=== PATIENT | male | born 1990 | race African-American/Black ===

== ENCOUNTER 2022-11-13 12:01 | Inpatient (IN) ==
--- NOTE | 2022-11-13 12:19 | Emergency Department Note ---
Impression & Plan Anxiety, Depression, Bipolar disorder ED Provider Note NAME: TERE HAMMONDS AGE: 32 SEX: M : 1990 ARRIVES VIA: Ambulance INFORMANT: Patient ED PROVIDER(S): Juan M Lubin DO CHIEF COMPLAINT: Depression and anxiety HPI: Patient is a 32-year-old male who presents ER for past medical history of depression anxiety and bipolar disorder. He denies any suicidal or homicidal ideations. No auditory visual hallucinations. He notes that he has been more anxious currently. Patient notes that he just lost his job yesterday. He does not have home. He has been eating and drinking. He has been sleeping. He has not been taking any of his medications. PAST MEDICAL HISTORY:See Below PAST SURGICAL HISTORY:See Below FAMILY HISTORY:See Below SOCIAL HISTORY:See Below HOME MEDICATIONS:See Below ALLERGIES:See Below VITALS:See Below PHYSICAL EXAMINATION: GENERAL: Sitting up in bed, alert, well appearing, well nourished, no distress, non-toxic EYE EXAM: normal conjunctiva. PERRL and EOM's grossly intact. OROPHARYNX: mucous membranes are moist NECK: supple, no nuchal rigidity, no adenopathy, non-tender LUNGS: Clear to auscultation. Normal chest wall mechanics HEART: no murmurs, S1 normal and S2 normal ABDOMEN: abdomen soft, non-tender, normo-active bowel sounds, no masses, no rebound or guarding. BACK: Back is symmetrical on inspection and there is no deformity, no midline tenderness, no CVA tenderness. SKIN: no rashes and no bruising UPPER EXTREMITIES: upper extremities are grossly normal. LOWER EXTREMITIES: No pitting edema. NEURO EXAM: Normal sensorium, cranial nerves II-XII grossly intact, normal speech, no gross weakness of arms, no gross weakness of legs. PSYCH: Denies any suicidal or homicidal ideations. Denies any auditory hallucinations. Does admit to feeling very anxious and depressed. MEDICAL DECISION MAKING: Patient is a 32-year-old male who presents ER for above-stated complaint. External records reviewed. Labs show no significant leukocytosis or anemia. BMP along LFTs bilirubin and TSH was unremarkable. UA was clean. Tox was positive for only marijuana. Alcohol negative. COVID-negative. Patient was requesting inpatient treatment. He was evaluated by her psychiatric cna caregiver. Patient did appear to be responding to internal stimuli. He was clearly paranoid and delusional. Referral made to 3 S. and patient was excepted on 201. ED OBSERVATION: The patient was placed in observation status at 1210. Psychiatric evaluation medical stability. During the time in observation, the patient was frequently reassessed and received blood work. On Final reassessment the patient blood work was unremarkable and the patient will be. Accepted at 6:20 PM at this time. A total observation time of 6 hours of observation patient was excepted to 3 S. at 6:20 PM on 201. Triage Nursing notes reviewed. Limited review of prior medical records performed Vital Signs: reviewed and remarkable for HTN Differential diagnosis: Mood disorder, infection, hypoglycemia, electrolyte abnormalities, cardiac sources, intracerebral event, toxicologic, trauma, neurologic, as well as other pathologies. ER treatment provided: See below Diagnostics interpreted by me include EKG and cardiac monitoring as listed below: -ECG: none -Laboratory studies:Interpreted by me as stated above in MDM and shown below. Imaging studies: Xrays: As interpreted by me:none CTs show: none Consultation(s): As described in MDM Procedures:none Critical Care: None Past Med/Surg History Medical History (Updated 11/13/22 @ 18:40 by Juan M Lubin DO) Anxiety Bipolar disorder Depression Surgical History No history of previous surgery Family History Denies family history of Ovarian cancer Prostate cancer Myocardial infarction Breast cancer Colorectal cancer Social History Smoking Status: Current every day smoker Tobacco Type: Cigarettes Hx Alcohol Use: Yes (rarely) Hx Substance Use: No Preferred Language: [place] Visual Impairment: No Limitations Hearing Ability: Normal marital status: single Current Living Situation: Significant Other current occupational status: employed and unemployed Feels Safe at Home: Yes Dental Care, Regularly: Yes Physical Activity Frequency: Daily Seatbelt Use: sometimes Sunscreen Use: No Gender Identity: Male Allergies Allergies Allergy/AdvReac Type Severity Reaction Status Date / Time No Known Allergies Allergy Verified 11/02/22 19:44 Home Meds Home Medications Medication Instructions Recorded Confirmed No Known Home Medications 11/13/22 11/13/22 Results & Data (ED) Vital Signs Vital Signs - 24 hr 11/13/22 12:11 11/13/22 12:11 11/13/22 16:16 Temperature 36.7 C 36.6 C Temperature Source Oral Oral Oral Pulse Rate 84 Pulse Rate [Finger] 70 Respiratory Rate 18 14 Respiratory Effort / Characteristics Non-Labored Respiratory Depth Normal Respiratory Pattern Regular Blood Pressure 142/89 H Blood Pressure [Right Arm] 125/73 Blood Pressure Mean 106 Blood Pressure Mean [Right Arm] 90 Blood Pressure Position Sitting Pulse Oximetry 98 99 Oxygen Delivery Method Room Air Room Air Sepsis Recent Fever Within 48 Hours No Sepsis New/Unexplained Change in Mental Status No Sepsis Action Taken by Nursing No Action Required Laboratory Data 11/13/22 12:55 11/13/22 12:55 Lab Results 11/13/22 11/13/22 11/13/22 Range/Units 12:02 12:55 12:55 WBC 10.62 (4.8-10.8) K/ul RBC 5.63 (4.70-6.10) M/uL Hgb 17.2 (14.0-18.0) g/dl Hct 48.4 (42.0-52.0) % MCV 86.0 (80.0-100.0) fL MCH 30.6 (25.0-34.0) pg MCHC 35.5 (32.0-36.0) g/dL RDW Std Deviation 44.5 (36.4-46.3) fL RDW Coeff of Dalila 14.1 (11.5-14.5) % Plt Count 291 (130-400) K/uL MPV 10.1 (9.4-12.4) fL Immature Gran % (Auto) 0.3 % Neut % (Auto) 69.2 % Lymph % (Auto) 18.9 % [place] % (Auto) 9.0 % Eos % (Auto) 1.9 % Baso % (Auto) 0.7 % Neut # (Auto) 7.35 H (1.40-6.50) K/uL Lymph # (Auto) 2.01 (1.2-3.4) K/uL [place] # (Auto) 0.96 H (0.11-0.59) K/uL Eos # (Auto) 0.20 (0-0.50) K/uL Baso # (Auto) 0.07 (0-0.2) K/uL Immature Gran # (Auto) 0.03 (0.01-0.20) K/uL Sodium 136 (136-145) mmol/L Potassium 3.5 (3.5-5.1) mmol/L Chloride 101 (98-107) mmol/L Carbon Dioxide 28 (21-32) mmol/L Anion Gap 7 (3-11) BUN 11 (6-23) mg/dl Creatinine 0.86 (0.6-1.4) mg/dl Est Cr Clr Drug Dosing Not Reportable Est GFR ( Amer) 134.9 ml/min Est GFR (Non-Af Amer) 116.4 ml/min BUN/Creatinine Ratio 12.8 (10-20) Glucose 104 H (70-99(Fasting)) mg/dl Calcium 9.8 (8.6-10.3) mg/dl Total Bilirubin 0.5 (0.2-1.0) mg/dl AST 30 (13-39) U/L ALT 28 (7-52) U/L Alkaline Phosphatase 76 (34-104) U/L Total Protein 7.9 (6.0-8.3) gm/dl Albumin 5.0 (3.4-5.0) gm/dl Globulin 2.9 (2.5-4.0) gm/dl Albumin/Globulin Ratio 1.7 (0.9-2) TSH (0.300-4.500) uIu/ml Urine Color Urine Appearance (Clear) Urine pH (4.5-7.5) Ur Specific [place] (1.000-1.030) Urine Protein (Negative) Urine Glucose (UA) (Negative) Urine Ketones (Negative) Urine Blood (Negative) Urine Nitrite (Negative) Urine Bilirubin (Negative) Urine Urobilinogen (Negative) Ur Leukocyte Esterase (Negative) Salicylates (3.0-30) mg/dl Urine Opiates Screen (Neg) Ur Methadone, Qual (Neg) Acetaminophen (10-30) ug/ml Urine Barbiturates (Neg) Ur Phencyclidine (PCP) (Neg) U Amphetamin/Meth Scrn (Neg) MDMA (Ecstasy) Screen (Neg) U Benzodiazepines Scrn (Neg) Ur Cocaine Metabolite (Neg) U Marijuana (THC) Screen (Neg) Ethyl Alcohol mg/dL < 10.0 (<10.0) mg/dl SARS-CoV-2, RNA, NAAT (NEGATIVE) 11/13/22 11/13/22 11/13/22 Range/Units 12:55 12:55 12:55 WBC (4.8-10.8) K/ul RBC (4.70-6.10) M/uL Hgb (14.0-18.0) g/dl Hct (42.0-52.0) % MCV (80.0-100.0) fL MCH (25.0-34.0) pg MCHC (32.0-36.0) g/dL RDW Std Deviation (36.4-46.3) fL RDW Coeff of Dalila (11.5-14.5) % Plt Count (130-400) K/uL MPV (9.4-12.4) fL Immature Gran % (Auto) % Neut % (Auto) % Lymph % (Auto) % [place] % (Auto) % Eos % (Auto) % Baso % (Auto) % Neut # (Auto) (1.40-6.50) K/uL Lymph # (Auto) (1.2-3.4) K/uL [place] # (Auto) (0.11-0.59) K/uL Eos # (Auto) (0-0.50) K/uL Baso # (Auto) (0-0.2) K/uL Immature Gran # (Auto) (0.01-0.20) K/uL Sodium (136-145) mmol/L Potassium (3.5-5.1) mmol/L Chloride (98-107) mmol/L Carbon Dioxide (21-32) mmol/L Anion Gap (3-11) BUN (6-23) mg/dl Creatinine (0.6-1.4) mg/dl Est Cr Clr Drug Dosing Est GFR ( Amer) ml/min Est GFR (Non-Af Amer) ml/min BUN/Creatinine Ratio (10-20) Glucose (70-99(Fasting)) mg/dl Calcium (8.6-10.3) mg/dl Total Bilirubin (0.2-1.0) mg/dl AST (13-39) U/L ALT (7-52) U/L Alkaline Phosphatase (34-104) U/L Total Protein (6.0-8.3) gm/dl Albumin (3.4-5.0) gm/dl Globulin (2.5-4.0) gm/dl Albumin/Globulin Ratio (0.9-2) TSH 1.215 (0.300-4.500) uIu/ml Urine Color Yellow Urine Appearance Clear (Clear) Urine pH 6.5 (4.5-7.5) Ur Specific [place] 1.011 (1.000-1.030) Urine Protein Negative (Negative) Urine Glucose (UA) Negative (Negative) Urine Ketones Trace H (Negative) Urine Blood Negative (Negative) Urine Nitrite Negative (Negative) Urine Bilirubin Negative (Negative) Urine Urobilinogen Negative (Negative) Ur Leukocyte Esterase Negative (Negative) Salicylates < 3.0 L (3.0-30) mg/dl Urine Opiates Screen (Neg) Ur Methadone, Qual (Neg) Acetaminophen < 3 L (10-30) ug/ml Urine Barbiturates (Neg) Ur Phencyclidine (PCP) (Neg) U Amphetamin/Meth Scrn (Neg) MDMA (Ecstasy) Screen (Neg) U Benzodiazepines Scrn (Neg) Ur Cocaine Metabolite (Neg) U Marijuana (THC) Screen (Neg) Ethyl Alcohol mg/dL (<10.0) mg/dl SARS-CoV-2, RNA, NAAT (NEGATIVE) 11/13/22 11/13/22 Range/Units 12:55 13:00 WBC (4.8-10.8) K/ul RBC (4.70-6.10) M/uL Hgb (14.0-18.0) g/dl Hct (42.0-52.0) % MCV (80.0-100.0) fL MCH (25.0-34.0) pg MCHC (32.0-36.0) g/dL RDW Std Deviation (36.4-46.3) fL RDW Coeff of Dalila (11.5-14.5) % Plt Count (130-400) K/uL MPV (9.4-12.4) fL Immature Gran % (Auto) % Neut % (Auto) % Lymph % (Auto) % [place] % (Auto) % Eos % (Auto) % Baso % (Auto) % Neut # (Auto) (1.40-6.50) K/uL Lymph # (Auto) (1.2-3.4) K/uL [place] # (Auto) (0.11-0.59) K/uL Eos # (Auto) (0-0.50) K/uL Baso # (Auto) (0-0.2) K/uL Immature Gran # (Auto) (0.01-0.20) K/uL Sodium (136-145) mmol/L Potassium (3.5-5.1) mmol/L Chloride (98-107) mmol/L Carbon Dioxide (21-32) mmol/L Anion Gap (3-11) BUN (6-23) mg/dl Creatinine (0.6-1.4) mg/dl Est Cr Clr Drug Dosing Est GFR ( Amer) ml/min Est GFR (Non-Af Amer) ml/min BUN/Creatinine Ratio (10-20) Glucose (70-99(Fasting)) mg/dl Calcium (8.6-10.3) mg/dl Total Bilirubin (0.2-1.0) mg/dl AST (13-39) U/L ALT (7-52) U/L Alkaline Phosphatase (34-104) U/L Total Protein (6.0-8.3) gm/dl Albumin (3.4-5.0) gm/dl Globulin (2.5-4.0) gm/dl Albumin/Globulin Ratio (0.9-2) TSH (0.300-4.500) uIu/ml Urine Color Urine Appearance (Clear) Urine pH (4.5-7.5) Ur Specific [place] (1.000-1.030) Urine Protein (Negative) Urine Glucose (UA) (Negative) Urine Ketones (Negative) Urine Blood (Negative) Urine Nitrite (Negative) Urine Bilirubin (Negative) Urine Urobilinogen (Negative) Ur Leukocyte Esterase (Negative) Salicylates (3.0-30) mg/dl Urine Opiates Screen Neg (Neg) Ur Methadone, Qual Neg (Neg) Acetaminophen (10-30) ug/ml Urine Barbiturates Neg (Neg) Ur Phencyclidine (PCP) Neg (Neg) U Amphetamin/Meth Scrn Neg (Neg) MDMA (Ecstasy) Screen Neg (Neg) U Benzodiazepines Scrn Neg (Neg) Ur Cocaine Metabolite Neg (Neg) U Marijuana (THC) Screen Pos H (Neg) Ethyl Alcohol mg/dL (<10.0) mg/dl SARS-CoV-2, RNA, NAAT NEGATIVE (NEGATIVE) Discharge Plan Visit Data Chief Complaint: Mental Health Evaluation Stated Complaint: MHID ED Provider: Juan M Lubin Discharge Problem: Anxiety, Depression, Bipolar disorder Patient Disposition: Admitted As Inpatient Discharge Instructions Interventions: ED Discharge Assessment Last Done: 11/13/22 18:13
[2022-11-13 13:07] LABS: Appearance Urine Clear (Clear); Bilirubin Urine Negative (Negative); Blood Urine Negative (Negative); Color Urine Yellow; Glucose Urine UA Negative (Negative); Ketones Urine Trace (Negative); Leukocyte Esterase Urine Negative (Negative); Nitrite Urine Negative (Negative); Protein Urine Negative (Negative); Specific Gravity Urine 1.011 (1.000-1.030); Urobilinogen Urine Negative (Negative); pH Urine 6.5 (4.5-7.5)
[2022-11-13 13:09] LABS: Basophils # (auto) 0.07 K/uL (0-0.2); Basophils % (auto) 0.7 %; Eosinophils % (auto) 1.9 %; Hematocrit (blood only) 48.4 % (42.0-52.0); Hemoglobin 17.2 g/dl (14.0-18.0); Immature Granulocytes # (auto) 0.03 K/uL (0.01-0.20); Immature Granulocytes % (auto) 0.3 %; Lymphocytes # (auto) 2.01 K/uL (1.2-3.4); Lymphocytes % (auto) 18.9 %; Mean Corpuscular Hemoglobin 30.6 pg (25.0-34.0); Mean Corpuscular Hgb Conc 35.5 g/dL (32.0-36.0); Mean Platelet Volume 10.1 fL (9.4-12.4); Monocytes # (auto) 0.96 K/uL (0.11-0.59); Neutrophils # (auto) 7.35 K/uL (1.40-6.50); Neutrophils % (auto) 69.2 %; Platelet Count 291 K/uL (130-400); RDW Coefficient of Variation 14.1 % (11.5-14.5); RDW Standard Deviation 44.5 fL (36.4-46.3); Red Blood Count 5.63 M/uL (4.70-6.10); White Blood Count 10.62 K/ul (4.8-10.8)
[2022-11-13 13:23] LABS: Acetaminophen < 3 ug/ml (10-30); Salicylate < 3.0 mg/dl (3.0-30)
[2022-11-13 13:27] LABS: Anion Gap 7 (3-11); Bilirubin,Total 0.5 mg/dl (0.2-1.0); Calcium 9.8 mg/dl (8.6-10.3); Carbon Dioxide 28 mmol/L (21-32); Chloride 101 mmol/L (98-107); Potassium 3.5 mmol/L (3.5-5.1); Sodium 136 mmol/L (136-145)
[2022-11-13 13:33] LABS: Alanine Aminotransferase 28 U/L (7-52); Albumin Globulin Ratio 1.7 (0.9-2); Alkaline Phosphatase 76 U/L (34-104); Aspartate Aminotransferase 30 U/L (13-39); BUN Creatinine Ratio 12.8 (10-20); Blood Urea Nitrogen 11 mg/dl (6-23); Est GFR (African American) 134.9 ml/min; Est GFR (Non-African American) 116.4 ml/min; Globulin 2.9 gm/dl (2.5-4.0); Glucose 104 mg/dl (70-99(Fasting)); Total Protein 7.9 gm/dl (6.0-8.3)
[2022-11-13 13:59] LABS: Amphetamines+Metham, Urine Neg (Neg); Barbiturates, Urine Neg (Neg); Benzodiazepine, Urine Neg (Neg); Cocaine, Urine Neg (Neg); MDMA (Ecstacy), Urine Neg (Neg); Methadone, Urine Neg (Neg); Opiate, Urine Neg (Neg); Phencyclidine, Urine Neg (Neg)
[2022-11-13] MEDS ORDERED: SODIUM CHLORIDE 0.65% NA SOLN 45 ML (OCEAN) PRN (19:08)
[2022-11-13] MEDS ORDERED: ALUMINUM/MAGNESIUM SUSP 30 ML UDC PO PRN (19:08)
[2022-11-13] MEDS ORDERED: hydrOXYzine HCl 25 MG TAB PO PRN (19:08)
[2022-11-13] MEDS ORDERED: OLANZAPINE 2.5 MG TAB PO PRN (19:08)
[2022-11-13] MEDS ORDERED: BISMUTH SUBSALICYLATE LIQD 236 ML PO PRN (19:08)
[2022-11-13] MEDS ORDERED: MAGNESIUM HYDROXIDE SUSP 30 ML UDC PO PRN (19:08)
[2022-11-13] MEDS: OLANZapine 10 MG TAB PO SCH ×2 (21:26→21:37)
--- NOTE | 2022-11-14 09:48 | History & Physical ---
Date of Service November 14, 2022 Impression / Recommendations Impression 32 year old with a history of BPAD and alcohol use disorder who was admitted for odd behavior and psychosis. Diagnostically consistent with unspecified psychosis with broad differential including acute rachelle (given hx BPAD and decreased sleep) versus primary psychotic disorder versus substance-induced or withdrawal (UDS positive for cannabis, possible effects from synthetic). The patient is deemed unstable and requires psychiatric hospitalization for diagnostic clarification, safety and stabilization, medication management and development of further coping skills. Discussed medication treatment options in detail. Discussed risks, benefits and alternatives. Tere is stating he is only willing to take Vistaril. Discussed that I would be ordering risperidone given that I think it will help with his psychosis and that he can choose to take it or decline it. Reviewed side effects including but not limited to: movement (TD, NMS), cardiac (QTc prolongation), and metabolic (stroke, insulin resistance) and necessity for fasting lipid and glucose labwork (will order if he agrees to start taking it) and AIMS done with score of 0. MNPR due to history of aggression, acute psychosis (1) Psychotic disorder with delusions: (2) Anxiety: Plan 11/14/2022: The patient was admitted to the [facility] ([facility] mental health unit) on q15 min checks (behavioral with suicide precautions) for safety. The patient will participate in group, recreational, and milieu therapies and will be offered additional individual and family sessions as clinically appropriate. -He is refusing olanzapine so will switch to risperidone 1mg BID ODT Inventory Assets Strengths: willing to get treatment, recently working Needs: safety and stabilization, medication adjustment, additional coping skills, increased outpatient services Suicide Risk Level Suicide Risk Level: Moderate (q15 min suicide checks) (he denies SI but given psychosis risk of harm is slightly elevated but he feels safe here, agrees to let nurses know if he feels unsafe or requires additional support) Suicide Risk Level Comments: Risk Factors Assessment Male: Yes : No Do You Have Access To A Gun?: No Health Problems: No Mental Health Diagnoses: Yes Substance Use Disorders: No (none current, hx substance use ) Previous Attempt: No Family History of Suicide: No Previous Psychiatric Hospitalization: Yes Protective Factors Assessment : No Employed: No Stable Relationships: No Good Rapport with Provider: No (no current providers) Psychiatric History Identifying Data TERE HAMMONDS is a 32-year-old M who is currently homeless and has been residing at the [facility], has a history of bipolar affective disorder and alcohol use disorder, and was admitted on 11/13/22 17:38 on a 201 voluntary commitment for odd behavior and psychosis. Chief Complaint "I can't go back there". History of Present Illness Tere self-presented to the ED requesting help for increased anxiety and depression after losing his job on 11/12/2022. While in the ED he was noted to be responding to likely internal stimuli, having odd affect and with paranoia and delusions. Additional recent history and presentation per ED psych CM note on 11/13/2022: " Tere appears to be responding to internal stimuli. He is continuously wringing his hair, shaking his head, repeatedly blowing his nose into his hands, and rubbing his skin. He makes very little eye contact. He stares at wall and corner of room intermittently. He attempted to make comments, but then stopped himself and says Never mind. Tere is cooperative with questioning, but thought process is disorganized. Tere is having difficulty expressing his thoughts. He does now admit to having hallucinations. Tere reports that he has been staying at [facility] for the past month and a half, but has been having increased paranoia about being there. He believes people are throwing scents into his face and he cannot stop smelling it and feeling it on his skin. He fears people at the [facility] are trying to poison him. His paranoia has made it so he does not feel safe staying there. As a result, he has not returned to the [facility] for the past 2 days. He has been having difficulty sleeping. Tere also reports that he lost his job due to paranoia. Tere reports that he is supposed to be on some mental health medication, but has not taken them in a long time (unsure how long, weeks, months, etc). Tere is also unsure what medications are prescribed, but he believes one is Seroquel. Tere reports that he has not taken his medications because he did not want to go to the doctor. Tere was seen in the ER 11/02/22 due to anxiety and paranoia about being poisoned. He requested that his urine be checked at that time. He tested positive for marijuana, which he reports he has his medical card. He was discharged with Vistraril. Tere does admit to use of bath salts in the past, but denies use since being placed on parole 6 months ago. He does report daily tobacco use. Tere reports past mental health history of Bipolar and Anxiety. During brief assessment, Tere reported depression and anxiety, but during full mental health assessment, patient denies depression and anxiety. He continues to deny SI and HI. He denies hallucinations giving him demands. He denies past history of trauma." Last evening initially accepted po zyprexa but then hide this under his tongue and then went to his room and spit it out. Only slept about 2.25 hours. Did eat non packaged food at breakfast but otherwise very suspicious including refusing any nicotine replacement products. History of bath salt use but reports none in last year, only cannabis use currently. States he hasn't used any other substances as he is on parole for a previous parole violation for substance use. Today presents with odd affect, smiling at times and seems internally preoccupied. Guarded and won't give many details except to confirm he's felt anxious, was fired by his job and will not return to [facility]. Reports he only wants to take "anxiety medication". States his sleep is "good" even when we discussed his poor sleep last night. Past Psychiatric History Current Psychiatric Diagnosis: Bipolar, anxiety Outpatient Services: none currently Previous Psych Admissions: August 2019 at [place] for anger with HI, alcohol use December 2018 at the [facility] for rachelle/mixed episode Do You Have Access To A Gun?: No History of Previous Suicide Attempt: No Past Medication Trials: Vistaril, he can't recall Past Head Trauma/Neuro History History of Concussion/Seizure: No Allergies Allergy/AdvReac Type Severity Reaction Status Date / Time No Known Allergies Allergy Verified 11/02/22 19:44 Home Medications Medication Instructions Recorded Confirmed Type No Known Home Medications 11/13/22 11/13/22 History Family History Family History of: Doesn't Know Alcohol History Hx of Alcohol Use Over the Past 12 Months: No AUDIT Total Score: 0 Reports no recent use but history of problematic alcohol use with legal charges related to alcohol use per chart review Smoking Use Have You Smoked or Used Tobacco Products in the Last 30 Days: Yes tobacco type: cigarettes Smoking Status: Current every day smoker Smoking packs per day: 0.5 Substance History Hx of Prescription Med Misuse Over the Past 12 Months: No Hx of Over the Counter Med Misuse Over the Past 12 Months: No Hx of Inhalent Misuse Over the Past 12 Months: No Hx of Organic Substance Use Over the Past 12 Months: Yes (medical marijuana use occassionally) Hx of Illegal Substances/Street Drug Use Over Past 12 Months: No Problems as a Result of Past Substance Use: Job Loss and Arrested history of bath salt use Personal History Living Arrangements: Temporary Half-Way ([facility] for the last 2 months ) Childhood: Parents live in [place]. Raised "[place] over the place". Has three siblings. 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) Marital Status: Single Number Of Children: 3 children age 6,6, and 7 Beliefs That Will Affect Care: None Current Legal Problems: Yes (currently on parole) Hx Legal Problems: Yes (simple assault charges, violation of parole, alcohol use charges) Hx Traumatic Life Events: No Patient History Medical History (Updated 11/14/22 @ 13:44 by Chiara Lion MD) Anxiety Bipolar disorder Depression Surgical History No history of previous surgery Family History Denies family history of Ovarian cancer Prostate cancer Myocardial infarction Breast cancer Colorectal cancer Social History Smoking Status: Current every day smoker Tobacco Type: Cigarettes Hx Alcohol Use: Yes (rarely) Hx Substance Use: No Preferred Language: Sierra Leonean Communication Ability: Effective Visual Impairment: No Limitations Hearing Ability: Normal Desk Monitor Required: No Beliefs That Will Affect Care: None marital status: single Current Living Situation: Significant Other current occupational status: employed and unemployed Feels Safe at Home: Yes Dental Care, Regularly: Yes Physical Activity Frequency: Daily Seatbelt Use: sometimes Sunscreen Use: No Gender Identity: Male Assistive Devices: None Review of Systems Review of Systems: All systems reviewed & are unremarkable except as noted in HPI & below Physical Exam Psychiatric: Orientation: alert, oriented x 3 and + guarded Apperance: appropriately dressed and appropriately groomed Eye Contact: + fair eye contact Motor Behavior: no abnormal motor movements Speech: + abnormal rate/rhythm/volume of speech (increased latency, brief) Affect: + constricted affect; + mood not congruent with affect (smiling and laughing at times inappropriately ) Mood: + anxious mood Thought Process: + thought blocking, + circumstantial thought process (brief) and + concrete thought process Thought Content: + paranoid and + delusions Suicidal Thoughts: denies suicidal thoughts, denies suicidal plan and denies suicidal intent Homicidal Thoughts: denies homicidal thoughts Hallucinations: + auditory hallucinations (appears to be responding to internal stimuli ); no visual hallucinations Cognition: recent memory grossly intact, remote memory grossly intact and language grossly intact; + attention not intact Estimated Intelligence: consistent with education level Insight: + limited insight Judgment: + limited judgement Vital Signs (Past 24 Hours): Last Vital Signs Temp 37.2 C 11/14/22 06:00 Pulse 67 11/14/22 06:00 Resp 18 11/14/22 06:00 BP 112/62 11/14/22 06:41 Pulse Ox 98 11/14/22 06:00 O2 Del Method Room Air 11/14/22 06:00 Exam Statement: A physical exam was performed in the ED by Dr. Lubin for the purposes of medical clearance. I accept that physical as correct and adequate for the purposes of the inpatient physical exam. Results & Data ([facility]) Laboratory Results Laboratory Results - last 24 hr 11/13/22 11/13/22 11/13/22 12:02 12:55 12:55 WBC 10.62 RBC 5.63 Hgb 17.2 Hct 48.4 MCV 86.0 MCH 30.6 MCHC 35.5 RDW Std Deviation 44.5 RDW Coeff of Dalila 14.1 Plt Count 291 MPV 10.1 Immature Gran % (Auto) 0.3 Neut % (Auto) 69.2 Lymph % (Auto) 18.9 [place] % (Auto) 9.0 Eos % (Auto) 1.9 Baso % (Auto) 0.7 Neut # (Auto) 7.35 H Lymph # (Auto) 2.01 [place] # (Auto) 0.96 H Eos # (Auto) 0.20 Baso # (Auto) 0.07 Immature Gran # (Auto) 0.03 Sodium 136 Potassium 3.5 Chloride 101 Carbon Dioxide 28 Anion Gap 7 BUN 11 Creatinine 0.86 Est Cr Clr Drug Dosing Not Reportable Est GFR ( Amer) 134.9 Est GFR (Non-Af Amer) 116.4 BUN/Creatinine Ratio 12.8 Glucose 104 H Calcium 9.8 Total Bilirubin 0.5 AST 30 ALT 28 Alkaline Phosphatase 76 Total Protein 7.9 Albumin 5.0 Globulin 2.9 Albumin/Globulin Ratio 1.7 TSH Urine Color Urine Appearance Urine pH Ur Specific [place] Urine Protein Urine Glucose (UA) Urine Ketones Urine Blood Urine Nitrite Urine Bilirubin Urine Urobilinogen Ur Leukocyte Esterase Salicylates Urine Opiates Screen Ur Methadone, Qual Acetaminophen Urine Barbiturates Ur Phencyclidine (PCP) U Amphetamin/Meth Scrn MDMA (Ecstasy) Screen U Benzodiazepines Scrn Ur Cocaine Metabolite U Marijuana (THC) Screen U Marijuana THC Carboxy Drug Screen Comment Ethyl Alcohol mg/dL < 10.0 SARS-CoV-2, RNA, NAAT 11/13/22 11/13/22 11/13/22 12:55 12:55 12:55 WBC RBC Hgb Hct MCV MCH MCHC RDW Std Deviation RDW Coeff of Dalila Plt Count MPV Immature Gran % (Auto) Neut % (Auto) Lymph % (Auto) [place] % (Auto) Eos % (Auto) Baso % (Auto) Neut # (Auto) Lymph # (Auto) [place] # (Auto) Eos # (Auto) Baso # (Auto) Immature Gran # (Auto) Sodium Potassium Chloride Carbon Dioxide Anion Gap BUN Creatinine Est Cr Clr Drug Dosing Est GFR ( Amer) Est GFR (Non-Af Amer) BUN/Creatinine Ratio Glucose Calcium Total Bilirubin AST ALT Alkaline Phosphatase Total Protein Albumin Globulin Albumin/Globulin Ratio TSH 1.215 Urine Color Yellow Urine Appearance Clear Urine pH 6.5 Ur Specific [place] 1.011 Urine Protein Negative Urine Glucose (UA) Negative Urine Ketones Trace H Urine Blood Negative Urine Nitrite Negative Urine Bilirubin Negative Urine Urobilinogen Negative Ur Leukocyte Esterase Negative Salicylates < 3.0 L Urine Opiates Screen Ur Methadone, Qual Acetaminophen < 3 L Urine Barbiturates Ur Phencyclidine (PCP) U Amphetamin/Meth Scrn MDMA (Ecstasy) Screen U Benzodiazepines Scrn Ur Cocaine Metabolite U Marijuana (THC) Screen U Marijuana THC Carboxy Drug Screen Comment Ethyl Alcohol mg/dL SARS-CoV-2, RNA, NAAT 11/13/22 11/13/22 11/13/22 12:55 12:55 13:00 WBC RBC Hgb Hct MCV MCH MCHC RDW Std Deviation RDW Coeff of Dalila Plt Count MPV Immature Gran % (Auto) Neut % (Auto) Lymph % (Auto) [place] % (Auto) Eos % (Auto) Baso % (Auto) Neut # (Auto) Lymph # (Auto) [place] # (Auto) Eos # (Auto) Baso # (Auto) Immature Gran # (Auto) Sodium Potassium Chloride Carbon Dioxide Anion Gap BUN Creatinine Est Cr Clr Drug Dosing Est GFR ( Amer) Est GFR (Non-Af Amer) BUN/Creatinine Ratio Glucose Calcium Total Bilirubin AST ALT Alkaline Phosphatase Total Protein Albumin Globulin Albumin/Globulin Ratio TSH Urine Color Urine Appearance Urine pH Ur Specific [place] Urine Protein Urine Glucose (UA) Urine Ketones Urine Blood Urine Nitrite Urine Bilirubin Urine Urobilinogen Ur Leukocyte Esterase Salicylates Urine Opiates Screen Neg Ur Methadone, Qual Neg Acetaminophen Urine Barbiturates Neg Ur Phencyclidine (PCP) Neg U Amphetamin/Meth Scrn Neg MDMA (Ecstasy) Screen Neg U Benzodiazepines Scrn Neg Ur Cocaine Metabolite Neg U Marijuana (THC) Screen Pos H U Marijuana THC Carboxy Pending Drug Screen Comment Pending Ethyl Alcohol mg/dL SARS-CoV-2, RNA, NAAT NEGATIVE Current Inpatient Medications Current Inpatient Medications: Current Inpatient Medications Acetaminophen (Acetaminophen 325 Mg Tab) 650 mg PO Q4H PRN PRN Reason: Headache or Minor Fever Stop: 12/13/22 19:07 Al Hydrox/Mg Hydrox/Simethicone (Aluminum/Magnesium Susp 30 Ml Udc) 30 ml PO Q4H PRN PRN Reason: GI Upset Stop: 12/13/22 19:07 Bismuth Subsalicylate (Bismuth Subsalicylate Liqd 236 Ml) 15 ml PO PRN PRN PRN Reason: Loose Stool Stop: 12/13/22 19:07 Hydroxyzine HCl (Hydroxyzine Hcl 25 Mg Tab) 50 mg PO HSZ PRN PRN Reason: Insomnia Stop: 12/13/22 19:07 Hydroxyzine HCl (Hydroxyzine Hcl 25 Mg Tab) 25 mg PO Q4H PRN PRN Reason: Anxiety Stop: 12/13/22 19:07 Magnesium Hydroxide (Magnesium Hydroxide Susp 30 Ml Udc) 30 ml PO DAILY PRN PRN Reason: Constipation Stop: 12/13/22 19:07 Olanzapine (Olanzapine 10 Mg Tab) 10 mg PO HS VANGIE Stop: 12/13/22 21:59 Last Admin: 11/13/22 21:37 Dose: Not Given Olanzapine (Olanzapine 2.5 Mg Tab) 2.5 mg PO TID PRN PRN Reason: agitation/psychosis Stop: 12/13/22 20:59 Sodium Chloride (Sodium Chloride 0.65% Na Soln 45 Ml ([place])) 1 - 2 sprays NA PRN PRN PRN Reason: Nasal Dryness/Congestion Stop: 12/13/22 19:07
[2022-11-14] MEDS ORDERED: risperiDONE ODT 0.5 MG SOLTAB PO PRN (13:37)
[2022-11-14] MEDS: ACETAMINOPHEN 325 MG TAB PO PRN (19:38)
[2022-11-15] MEDS: hydrOXYzine HCl 25 MG TAB PO PRN (08:40)
--- NOTE | 2022-11-15 11:54 | Psychiatric Progress Note ---
Date of Service November 15, 2022 Impression / Recommendations Impression 32 year old with a history of BPAD and alcohol use disorder who was admitted for odd behavior and psychosis. Diagnostically consistent with unspecified psychosis with broad differential including acute rachelle (given hx BPAD and decreased sleep) versus primary psychotic disorder versus substance-induced or withdrawal (UDS positive for cannabis, possible effects from synthetic). The patient is deemed unstable and requires psychiatric hospitalization for diagnostic clarification, safety and stabilization, medication management and development of further coping skills. MNPR due to history of aggression, acute psychosis 11/15/2022: Still with poor sleep but no other symptoms of classic rachelle, rather showing some lessening of paranoia today especially after he finally agreed to a dose of an antipsychotic. Tolerating initial dose of risperidone without side effects, continue to encourage he try this. Somewhat loosened in his decision making and planning for disposition but some of this seems driven by his desire to avoid returning to [facility] and desire to use inpatient hospitalization for a more prolonged stay as he repeatedly asks if an option after his stay here is to be "transferred to another inpatient psychiatry facility that does longer stays" but is also not interested at all in making medication adjustments or learning new coping skills. Enjoys watching TV and bright with activities with peers. (1) Psychotic disorder with delusions: (2) Anxiety: Plan 11/15/2022: Continue with risperidone 1mg BID ODT, continue to encourage adhe rence 11/14/2022: The patient was admitted to the [facility] ([facility] mental health unit) on q15 min checks (behavioral with suicide precautions) for safety. The patient will participate in group, recreational, and milieu therapies and will be offered additional individual and family sessions as clinically appropriate. -He is refusing olanzapine so will switch to risperidone 1mg BID ODT Inventory Assets Strengths: willing to get treatment, recently working Needs: safety and stabilization, medication adjustment, additional coping skills, increased outpatient services Suicide Risk Level Suicide Risk Level: Moderate (q15 min suicide checks) (he denies SI but given psychosis risk of harm is slightly elevated but he feels safe here, agrees to let nurses know if he feels unsafe or requires additional support) Suicide Risk Level Comments: Risk Factors Assessment Male: Yes : No Do You Have Access To A Gun?: No Health Problems: No Mental Health Diagnoses: Yes Substance Use Disorders: No (none current, hx substance use ) Previous Attempt: No Family History of Suicide: No Previous Psychiatric Hospitalization: Yes Protective Factors Assessment : No Employed: No Stable Relationships: No Good Rapport with Provider: No (no current providers) Interval History Identifying Information TERE HAMMONDS is a 32-year-old M who is currently homeless and has been residing at the [facility], has a history of bipolar affective disorder and alcohol use disorder, and was admitted on 11/13/22 17:38 on a 201 voluntary commitment for odd behavior and psychosis. Chief Complaint "I don't know what to tell you". Review of Systems Sleep Information Total Hours of Sleep: 3.25 Meal Information Percent Meal Consumed - Breakfast: 100 Percent Meal Consumed - Lunch: 100 Percent Meal Consumed - Dinner: 100 Subjective Subjective Patient was seen & assessed and interval progress reviewed with treatment team nursing and social work. Refused risperidone last night but accepted ODT dose this morning. Met with him alongside SW in the afternoon. He remains unsure what he should do after discharge as he doesn't want to return to [facility] as "they mess with people with psychosis and start pulling little tricks" but also recognizes he needs to have a formal address as part of his parole requirements. He is unsure about the risperidone but agrees to continue this for now. Makes some vague statements about his goals for inpatient psychiatric hospitalization of "fixing my meds" but when try to discuss his medications and options he is unwilling to consider any medications except possibly continuing with risp eridone. He is agreeable to SW making some outpatient referrals and confirming his [facility] appointment. Observed interacting appropriately with peers and smiling and laughing appropriately while engaging in a game. Still with poor sleep which he doesn't see as problematic. Physical Exam Psychiatric Orientation: alert, oriented x 3 and + guarded Apperance: appropriately dressed and appropriately groomed Eye Contact: + fair eye contact Motor Behavior: no abnormal motor movements Speech: + abnormal rate/rhythm/volume of speech (increased latency) Affect: + constricted affect; + mood not congruent with affect (smiling at times inappropriately but less of this today) Mood: + anxious mood Thought Process: + circumstantial thought process Thought Content: reality based without delusions Suicidal Thoughts: denies suicidal thoughts, denies suicidal plan and denies suicidal intent Homicidal Thoughts: denies homicidal thoughts Hallucinations: + auditory hallucinations (unclear if responding today); no visual hallucinations, no tactile hallucinations and no gustatory hallucinations Cognition: recent memory grossly intact, remote memory grossly intact, attention grossly intact and language grossly intact Estimated Intelligence: consistent with education level Insight: + limited insight Judgment: + limited judgement Vital Signs (Past 24 Hours) Last Vital Signs Temp 37 C 11/15/22 06:42 Pulse 73 11/15/22 06:43 Resp 18 11/15/22 06:42 BP 128/69 11/15/22 06:43 Pulse Ox 98 11/14/22 06:00 O2 Del Method Room Air 11/14/22 06:00 Results & Data ([facility]) Current Inpatient Medications Current Inpatient Medications: Current Inpatient Medications Acetaminophen (Acetaminophen 325 Mg Tab) 650 mg PO Q4H PRN PRN Reason: Headache or Minor Fever Stop: 12/13/22 19:07 Last Admin: 11/14/22 19:38 Dose: 650 mg Al Hydrox/Mg Hydrox/Simethicone (Aluminum/Magnesium Susp 30 Ml Udc) 30 ml PO Q4H PRN PRN Reason: GI Upset Stop: 12/13/22 19:07 Bismuth Subsalicylate (Bismuth Subsalicylate Liqd 236 Ml) 15 ml PO PRN PRN PRN Reason: Loose Stool Stop: 12/13/22 19:07 Hydroxyzine HCl (Hydroxyzine Hcl 25 Mg Tab) 50 mg PO HSZ PRN PRN Reason: Insomnia Stop: 12/13/22 19:07 Hydroxyzine HCl (Hydroxyzine Hcl 25 Mg Tab) 25 mg PO Q4H PRN PRN Reason: Anxiety Stop: 12/13/22 19:07 Last Admin: 11/15/22 08:40 Dose: 25 mg Magnesium Hydroxide (Magnesium Hydroxide Susp 30 Ml Udc) 30 ml PO DAILY PRN PRN Reason: Constipation Stop: 12/13/22 19:07 Risperidone (Risperidone Odt 0.5 Mg Soltab) 0.5 mg PO TID PRN PRN Reason: agitation/psychosis/rachelle Stop: 12/14/22 13:36 Risperidone (Risperidone Odt 1mg) 1 mg PO BID VANGIE Stop: 12/14/22 20:59 Last Admin: 11/15/22 10:47 Dose: 1 mg Sodium Chloride (Sodium Chloride 0.65% Na Soln 45 Ml ([place])) 1 - 2 sprays NA PRN PRN PRN Reason: Nasal Dryness/Congestion Stop: 12/13/22 19:07 Mental Health & Subst Abuse Tx Therapist Name of Therapist: Denies Management Nurse Rn Name of Management Nurse Rn: Denies Post Discharge Appointments Primary Care Physician Name Of Family Doctor/PCP: Denies Contact Information Discharge Discharge Address: [address] [place] [address]
[2022-11-16] MEDS: hydrOXYzine HCl 25 MG TAB PO PRN ×2 (08:09→14:43)
[2022-11-16] MEDS: ACETAMINOPHEN 325 MG TAB PO PRN (08:10)
--- NOTE | 2022-11-16 10:13 | Psychiatric Progress Note ---
Date of Service November 16, 2022 Impression / Recommendations Impression 32 year old with a history of BPAD and alcohol use disorder who was admitted for odd behavior and psychosis. Diagnostically consistent with unspecified psychosis with broad differential including acute rachelle (given hx BPAD and decreased sleep) versus primary psychotic disorder versus substance-induced or withdrawal (UDS positive for cannabis, possible effects from synthetic). The patient is deemed unstable and requires psychiatric hospitalization for diagnostic clarification, safety and stabilization, medication management and development of further coping skills. MNPR due to history of aggression, acute psychosis 11/16/2022: Still with poor sleep but no other symptoms of classic rachelle, seems more likely that he may be withdrawing from some type of substance especially given that psychosis is improving quickly which would not be expected for a primary psychotic disorder after just a few doses of risperidone. Encouragingly no longer speaking about any internal stimuli, does have evidence for possible thought blocking versus poor attention span as asks me to repeat most questions. Quite guarded vs not interested in interacting with interview overall but answered all questions and feels his anxiety is improving which is his main focus. (1) Psychotic disorder with delusions: (2) Anxiety: Plan 11/16/2022: Continue with current medications and tx plan. 11/15/2022: Continue with risperidone 1mg BID ODT, continue to encourage adherence 11/14/2022: The patient was admitted to the [facility] ([facility]) on q15 min checks (behavioral with suicide precautions) for safety. The patient will participate in group, recreational, and milieu therapies and will be offered additional individual and family sessions as clinically appropriate. -He is refusing olanzapine so will switch to risperidone 1mg BID ODT Inventory Assets Strengths: willing to get treatment, recently working Needs: safety and stabilization, medication adjustment, additional coping skills, increased outpatient services Suicide Risk Level Suicide Risk Level: Moderate (q15 min suicide checks) (he denies SI but given psychosis risk of harm is slightly elevated but he feels safe here, agrees to let nurses know if he feels unsafe or requires additional support) Suicide Risk Level Comments: Risk Factors Assessment Male: Yes : No Do You Have Access To A Gun?: No Health Problems: No Mental Health Diagnoses: Yes Substance Use Disorders: No (none current, hx substance use ) Previous Attempt: No Family History of Suicide: No Previous Psychiatric Hospitalization: Yes Protective Factors Assessment : No Employed: No Stable Relationships: No Good Rapport with Provider: No (no current providers) Interval History Identifying Information TERE HAMMONDS is a 32-year-old M who is currently homeless and has been residing at the [facility] home, has a history of bipolar affective disorder and alcohol use disorder, and was admitted on 11/13/22 17:38 on a 201 voluntary commitment for odd behavior and psychosis. Chief Complaint "Talk about what?". Review of Systems Sleep Information Total Hours of Sleep: 4 Sleep Comments: 4 Meal Information Percent Meal Consumed - Breakfast: 100 Percent Meal Consumed - Lunch: 100 Percent Meal Consumed - Dinner: 100 Subjective Subjective Patient was seen & assessed and interval progress reviewed with treatment team nursing and social work. He attended groups last night, showered and interacted with peers. He was adherent with his evening and morning dose of risperidone. Utilizes Vistaril prn with good effect for anxiety. Denies any risperidone side effects. Feels his mood is "alright". Still not sleeping much but he feels he is sleeping well. Physical Exam Psychiatric Orientation: alert, oriented x 3 and + guarded Apperance: appropriately dressed and appropriately groomed Eye Contact: + fair eye contact Motor Behavior: no abnormal motor movements Speech: normal rate/rhythm/volume of speech Affect: + constricted affect; + mood not congruent with affect (appears suspicious at times) Mood: + anxious mood Thought Process: + thought blocking and + circumstantial thought process Thought Content: reality based without delusions Suicidal Thoughts: denies suicidal thoughts, denies suicidal plan and denies suicidal intent Homicidal Thoughts: denies homicidal thoughts Hallucinations: no auditory hallucinations, no visual hallucinations, no tactile hallucinations and no gustatory hallucinations Cognition: recent memory grossly intact, remote memory grossly intact and language grossly intact; + attention not intact (often asks me to repeat question twice) Estimated Intelligence: consistent with education level Insight: + limited insight Judgment: + limited judgement Vital Signs (Past 24 Hours) Last Vital Signs Temp 36.8 C 11/16/22 06:49 Pulse 62 11/16/22 06:50 Resp 18 11/16/22 06:49 BP 116/71 11/16/22 06:50 Pulse Ox 98 11/14/22 06:00 O2 Del Method Room Air 11/14/22 06:00 Results & Data ([facility]) Current Inpatient Medications Current Inpatient Medications: Current Inpatient Medications Acetaminophen (Acetaminophen 325 Mg Tab) 650 mg PO Q4H PRN PRN Reason: Headache or Minor Fever Stop: 12/13/22 19:07 Last Admin: 11/16/22 08:10 Dose: 650 mg Al Hydrox/Mg Hydrox/Simethicone (Aluminum/Magnesium Susp 30 Ml Udc) 30 ml PO Q4H PRN PRN Reason: GI Upset Stop: 12/13/22 19:07 Bismuth Subsalicylate (Bismuth Subsalicylate Liqd 236 Ml) 15 ml PO PRN PRN PRN Reason: Loose Stool Stop: 12/13/22 19:07 Hydroxyzine HCl (Hydroxyzine Hcl 25 Mg Tab) 50 mg PO HSZ PRN PRN Reason: Insomnia Stop: 12/13/22 19:07 Hydroxyzine HCl (Hydroxyzine Hcl 25 Mg Tab) 25 mg PO Q4H PRN PRN Reason: Anxiety Stop: 12/13/22 19:07 Last Admin: 11/16/22 08:09 Dose: 25 mg Magnesium Hydroxide (Magnesium Hydroxide Susp 30 Ml Udc) 30 ml PO DAILY PRN PRN Reason: Constipation Stop: 12/13/22 19:07 Risperidone (Risperidone Odt 0.5 Mg Soltab) 0.5 mg PO TID PRN PRN Reason: agitation/psychosis/rachelle Stop: 12/14/22 13:36 Risperidone (Risperidone Odt 1mg) 1 mg PO BID VANGIE Stop: 12/14/22 20:59 Last Admin: 11/16/22 08:06 Dose: 1 mg Sodium Chloride (Sodium Chloride 0.65% Na Soln 45 Ml (Reeves)) 1 - 2 sprays NA PRN PRN PRN Reason: Nasal Dryness/Congestion Stop: 12/13/22 19:07 Mental Health & Subst Abuse Tx Psychiatrist [facility] Psychiatrist: [facility] - Intake Psychiatrist's Date Of Appointment With Psychiatric Provider: 11/18/22 Time of Appointment with Psychiatrist: 12:30 PM in office Psychiatric Appointment Comment: [address], [place] [address] Therapist Name of Therapist: [facility] - Intake Therapist's Date of Therapist Appointment: 11/18/22 Time of Therapist Appointment: 12:30 PM in office Therapy Appointment Comment: [address], [place] [address] Joinery Setter Out Name of Joinery Setter Out: [employer] Phone Number for Joinery Setter Out: [phone] Case Management Appointment Comment: A mattress spring encaser will follow up with you directly. Post Discharge Appointments Primary Care Physician Name Of Family Doctor/PCP: [facility] Time of Appointment with PCP: [address], [place] [address] Provider Appointment Comment: Please follow up with your family doctor as needed. Contact Information Discharge Discharge Address: [address] [place] [address],[place] [address]
[2022-11-17 07:52] LABS: Chol HDL Ratio 3.9 (0-5)
[2022-11-17] MEDS: hydrOXYzine HCl 25 MG TAB PO PRN (08:30)
--- NOTE | 2022-11-17 09:33 | Discharge Summary ---
Date of Service November 17, 2022 History of Present Illness Darek self-presented to the ED requesting help for increased anxiety and depression after losing his job on 11/12/2022. While in the ED he was noted to be responding to likely internal stimuli, having odd affect and with paranoia and delusions. Additional recent history and presentation per ED psych CM note on 11/13/2022: " Darek appears to be responding to internal stimuli. He is continuously wringing his hair, shaking his head, repeatedly blowing his nose into his hands, and rubbing his skin. He makes very little eye contact. He stares at wall and corner of room intermittently. He attempted to make comments, but then stopped himself and says Never mind. Darek is cooperative with questioning, but thought process is disorganized. Darek is having difficulty expressing his thoughts. He does now admit to having hallucinations. Darek reports that he has been staying at [facility] for the past month and a half, but has been having increased paranoia about being there. He believes people are throwing scents into his face and he cannot stop smelling it and feeling it on his skin. He fears people at the nursing home are trying to poison him. His paranoia has made it so he does not feel safe staying there. As a result, he has not returned to the nursing home for the past 2 days. He has been having difficulty sleeping. Darek also reports that he lost his job due to paranoia. Darek reports that he is supposed to be on some mental health medication, but has not taken them in a long time (unsure how long, weeks, months, etc). Darek is also unsure what medications are prescribed, but he believes one is Seroquel. Darek reports that he has not taken his medications because he did not want to go to the doctor. Darek was seen in the ER 11/02/22 due to anxiety and paranoia about being poisoned. He requested that his urine be checked at that time. He tested positive for marijuana, which he reports he has his medical card. He was discharged with Vistraril. Darek does admit to use of bath salts in the past, but denies use since being placed on parole 6 months ago. He does report daily tobacco use. Darek reports past mental health history of Bipolar and Anxiety. During brief assessment, Darek reported depression and anxiety, but during full mental health assessment, patient denies depression and anxiety. He continues to deny SI and HI. He denies hallucinations giving him demands. He denies past history of trauma." Last evening initially accepted po zyprexa but then hide this under his tongue and then went to his room and spit it out. Only slept about 2.25 hours. Did eat non packaged food at breakfast but otherwise very suspicious including refusing any nicotine replacement products. History of bath salt use but reports none in last year, only cannabis use currently. States he hasn't used any other substances as he is on parole for a previous parole violation for substance use. Today presents with odd affect, smiling at times and seems internally preoccupied. Guarded and won't give many details except to confirm he's felt anxious, was fired by his job and will not return to [facility]. Reports he only wants to take "anxiety medication". States his sleep is "good" even when we discussed his poor sleep last night. Physical Exam Vital Signs (Past 24 Hours) Last Vital Signs Temp 36.5 C 11/17/22 06:37 Pulse 55 L 11/17/22 06:38 Resp 18 11/17/22 06:37 BP 125/79 11/17/22 06:38 Pulse Ox 98 11/14/22 06:00 O2 Del Method Room Air 11/14/22 06:00 See admission H&P and DOD summary. Principal Diagnosis Unspecified psychosis Psychiatric Data See daily stay summary. In short, patient was engaged with the social/therapeutic milieu of the unit, safety was maintained and the patient was somewhat cooperative with care. At times he had some oppositional behaviors with staff and initially was reluctant to try any medication but then agreed to start an antipsychotic for mood stabilization given reported history of BPAD and for unspecified psychosis. Medication changes included initiation of risperidone 1mg BID and Vistaril 25mg TID prn for anxiety and they tolerated this well. Baseline labs of fasting glucose, lipid profile, and weight were preformed and normal with the exception of just slightly elevated triglycerides but lab draw was not fasting (he accidentally drank milk that morning) so slightly elevated results are to be expected. If he continues on risperidone then recommend repeat weight in one month. Recommend repeat fasting glucose, HbA1c and fasting lipid profile every 12 weeks and then annually. If symptoms arise recommend checking BP, EKG, prolactin level as clinically indicated or relevant. His psychosis improved quickly suggesting possibly substance-induced versus brief psychotic episode. He did not sleep very well but did not show any signs of acute rachelle throughout his stay. He interacted well in groups, attended to personal hygiene, ate well and was bright in interactions with peers and while watching TV. He declined a support session but did participate in an intake for outpatient case management and safety plan was completed prior to discharge. Motivational interviewing was done regarding substance use, he plans to continue using cannabis as he has a medical cannabis card. Reviewed importance of seeking emergency care should SI occur, worsen or should they feel unsafe in the future which they agree to do. On the day of discharge he stated his mood was "alright and ready to go" and remained future-oriented including smoking cigarettes, getting back to [facility] and engaging in aftercare appointments for psychiatry, therapy and case management. Day of Discharge Assessment Today the patient voices readiness for discharge. They note improvement in mood and anxiety. They deny thoughts of harm to self or others. Thoughts are organized and they are clinically improved from admission. There is no evidence of psychosis. They improved in the hospital with support and medication adjustments. They agree to take medications as prescribed and keep follow-up appointments. At the time of the discharge they are deemed to be stable and appropriate for outpatient level of care. They are not deemed to be at imminent risk of harm to self or others. They are aware of emergency and crisis services. Knows to call 911 or go to nearest emergency care center if in a crisis which cannot be handled as an outpatient. Transition of Care Transition Of Care Record: was reviewed with the patient Advance Directives Advance Directives Information Provided: Yes Advance Directives: No Mental Health Advance Directive: No Advance Directives on File: No Living Will: No Power of Brand Advisor: No Advance Directives Reason:: Declines as Mental Health Visit. Suicide Risk Level Suicide Risk Level Comments: Acute risk is low given improvement in mood and denial of SI, lack of access to lethal means, hopefulness and improvement in psychosis. Chronic risk is low to moderate given some non-modifiable risk factors: psychiatric co-morbid diagnoses , periods of impulsivity, prior psychiatric hospitalizations, poor social support, mood disorder, history of suspected cluster B traits, but also with protective factors including: sense of responsibility to family and social supports, outpatient care in place, positive coping skills, capacity for self- observation. Counseled on ways to reduce acute and chronic risk including engaging with outpatient providers, using safety plan if needed, utilizing supports, taking medication, and using coping skills. Modifiable risk factors of psychosis were addressed during hospitalization through development of new coping skills, safety planning, and medication adjustments. Risk Factors Assessment Male: Yes : No Do You Have Access To A Gun?: No Health Problems: No Mental Health Diagnoses: Yes Substance Use Disorders: No (none current, hx substance use ) Previous Attempt: No Family History of Suicide: No Previous Psychiatric Hospitalization: Yes Hopelessness: No Protective Factors Assessment : No Employed: No Stable Relationships: No Good Rapport with Provider: No (no current providers, now will have CM and set up with [facility]) Tobacco Cessation at Discharge Tobacco Cessation Medication Prescribed at Discharge: Offered & Pt Refused Discharge Data Lab Results 11/13/22 11/13/22 11/13/22 12:02 12:55 12:55 WBC 10.62 RBC 5.63 Hgb 17.2 Hct 48.4 MCV 86.0 MCH 30.6 MCHC 35.5 RDW Std Deviation 44.5 RDW Coeff of Dalila 14.1 Plt Count 291 MPV 10.1 Immature Gran % (Auto) 0.3 Neut % (Auto) 69.2 Lymph % (Auto) 18.9 Conway % (Auto) 9.0 Eos % (Auto) 1.9 Baso % (Auto) 0.7 Neut # (Auto) 7.35 H Lymph # (Auto) 2.01 Conway # (Auto) 0.96 H Eos # (Auto) 0.20 Baso # (Auto) 0.07 Immature Gran # (Auto) 0.03 Sodium 136 Potassium 3.5 Chloride 101 Carbon Dioxide 28 Anion Gap 7 BUN 11 Creatinine 0.86 Est Cr Clr Drug Dosing Not Reportable Est GFR ( Amer) 134.9 Est GFR (Non-Af Amer) 116.4 BUN/Creatinine Ratio 12.8 Glucose 104 H Fasting Glucose Calcium 9.8 Total Bilirubin 0.5 AST 30 ALT 28 Alkaline Phosphatase 76 Total Protein 7.9 Albumin 5.0 Globulin 2.9 Albumin/Globulin Ratio 1.7 Triglycerides Cholesterol LDL Cholesterol, Calc VLDL Cholesterol, Calc HDL Cholesterol Cholesterol/HDL Ratio TSH Urine Color Urine Appearance Urine pH Ur Specific Exeter Urine Protein Urine Glucose (UA) Urine Ketones Urine Blood Urine Nitrite Urine Bilirubin Urine Urobilinogen Ur Leukocyte Esterase Salicylates Urine Opiates Screen Ur Methadone, Qual Acetaminophen Urine Barbiturates Ur Phencyclidine (PCP) U Amphetamin/Meth Scrn MDMA (Ecstasy) Screen U Benzodiazepines Scrn Ur Cocaine Metabolite U Marijuana (THC) Screen Ethyl Alcohol mg/dL < 10.0 SARS-CoV-2, RNA, NAAT 11/13/22 11/13/22 11/13/22 12:55 12:55 12:55 WBC RBC Hgb Hct MCV MCH MCHC RDW Std Deviation RDW Coeff of Dalila Plt Count MPV Immature Gran % (Auto) Neut % (Auto) Lymph % (Auto) Conway % (Auto) Eos % (Auto) Baso % (Auto) Neut # (Auto) Lymph # (Auto) Conway # (Auto) Eos # (Auto) Baso # (Auto) Immature Gran # (Auto) Sodium Potassium Chloride Carbon Dioxide Anion Gap BUN Creatinine Est Cr Clr Drug Dosing Est GFR ( Amer) Est GFR (Non-Af Amer) BUN/Creatinine Ratio Glucose Fasting Glucose Calcium Total Bilirubin AST ALT Alkaline Phosphatase Total Protein Albumin Globulin Albumin/Globulin Ratio Triglycerides Cholesterol LDL Cholesterol, Calc VLDL Cholesterol, Calc HDL Cholesterol Cholesterol/HDL Ratio TSH 1.215 Urine Color Yellow Urine Appearance Clear Urine pH 6.5 Ur Specific Exeter 1.011 Urine Protein Negative Urine Glucose (UA) Negative Urine Ketones Trace H Urine Blood Negative Urine Nitrite Negative Urine Bilirubin Negative Urine Urobilinogen Negative Ur Leukocyte Esterase Negative Salicylates < 3.0 L Urine Opiates Screen Ur Methadone, Qual Acetaminophen < 3 L Urine Barbiturates Ur Phencyclidine (PCP) U Amphetamin/Meth Scrn MDMA (Ecstasy) Screen U Benzodiazepines Scrn Ur Cocaine Metabolite U Marijuana (THC) Screen Ethyl Alcohol mg/dL SARS-CoV-2, RNA, NAAT 11/13/22 11/13/22 11/17/22 12:55 13:00 06:59 WBC RBC Hgb Hct MCV MCH MCHC RDW Std Deviation RDW Coeff of Dalila Plt Count MPV Immature Gran % (Auto) Neut % (Auto) Lymph % (Auto) Conway % (Auto) Eos % (Auto) Baso % (Auto) Neut # (Auto) Lymph # (Auto) Conway # (Auto) Eos # (Auto) Baso # (Auto) Immature Gran # (Auto) Sodium Potassium Chloride Carbon Dioxide Anion Gap BUN Creatinine Est Cr Clr Drug Dosing Est GFR ( Amer) Est GFR (Non-Af Amer) BUN/Creatinine Ratio Glucose Fasting Glucose 90 Calcium Total Bilirubin AST ALT Alkaline Phosphatase Total Protein Albumin Globulin Albumin/Globulin Ratio Triglycerides 157 H Cholesterol 147 LDL Cholesterol, Calc 78 VLDL Cholesterol, Calc 31 H HDL Cholesterol 38 Cholesterol/HDL Ratio 3.9 TSH Urine Color Urine Appearance Urine pH Ur Specific Exeter Urine Protein Urine Glucose (UA) Urine Ketones Urine Blood Urine Nitrite Urine Bilirubin Urine Urobilinogen Ur Leukocyte Esterase Salicylates Urine Opiates Screen Neg Ur Methadone, Qual Neg Acetaminophen Urine Barbiturates Neg Ur Phencyclidine (PCP) Neg U Amphetamin/Meth Scrn Neg MDMA (Ecstasy) Screen Neg U Benzodiazepines Scrn Neg Ur Cocaine Metabolite Neg U Marijuana (THC) Screen Pos H Ethyl Alcohol mg/dL SARS-CoV-2, RNA, NAAT NEGATIVE Hospital Course (1) Psychotic disorder with delusions: (2) Anxiety: Plan 11/16/2022: Continue with current medications and tx plan. 11/15/2022: Continue with risperidone 1mg BID ODT, continue to encourage adherence 11/14/2022: [facility]) on q15 min checks (behavioral with suicide precautions) for safety. The patient will participate in group, recreational, and milieu therapies and will be offered additional individual and family sessions as clinically appropriate. -He is refusing olanzapine so will switch to risperidone 1mg BID ODT Mental Health & Subst Abuse Tx Psychiatrist Name of Psychiatrist: Dulce Melara - Intake Psychiatrist's Date Of Appointment With Psychiatric Provider: 11/18/22 Time of Appointment with Psychiatrist: 12:30 PM in office Psychiatric Appointment Comment: [address], [place] [address] Therapist Name of Therapist: Dulce Melara - Intake Therapist's Date of Therapist Appointment: 11/18/22 Time of Therapist Appointment: 12:30 PM in office Therapy Appointment Comment: [address], [place] [address] Assistant Teacher Primary Name of Assistant Teacher Primary: [employer] Phone Number for Assistant Teacher Primary: [phone] Case Management Appointment Comment: A top case assembler will follow up with you directly. Post Discharge Appointments Primary Care Physician Name Of Family Doctor/PCP: [facility] Time of Appointment with PCP: [address], [place] [address] Provider Appointment Comment: Please follow up with your family doctor as needed. Smoking Cessation Counseling Tobacco Cessation Medication Prescribed at Discharge: Offered & Pt Refused Contact Information Discharge Discharge [address]: [address] [place] [id number] Discharge Plan Discharge Items Patient Disposition: Home - Self-Care Reason For Visit: MHID Discharge Diagnosis: Unspecified psychosis Activity: Resume your previous activity Non-emergency contact: Primary Care Provider, Psychiatrist, Therapist and Swage Toolsetter Call non-emergency contact if: you have any medication questions and your symptoms worsen Follow-up/Referrals: PCP,NO [Primary Care Provider] - Diet: Regular Addtl Attending Provider Instructions: SPECIAL CARE INSTRUCTIONS: 1. Follow through with your scheduled aftercare appointments. If unable to keep an appointment, please call to reschedule. 2. Take your medication only as prescribed. Medication should not be changed or stopped without the approval of your doctor. In the event of worsening symptoms or concerns about side effects, contact your doctor immediately. 3. Utilize new healthy coping skills, anger management skills, and stress management skills learned during your hospitalization. Journal feelings and process them with a support person. Identify stressors or situations that may result in relapse, deterioration or inappropriate behaviors and develop a plan to deal with those issues. 4. If your coping skills are ineffective and you are in crisis, contact your outpatient providers for direction. If unable to reach your providers, please call the [facility] CRISIS LINE AT , go to the [facility] walk-in center at [address], [address], [place], or go to the closest Emergency Room. 5. Avoid alcohol and un-prescribed drugs. 6. You have been provided with the Mental Health Advance Directives Pamphlet for your review. 7. Your condition is stable for discharge to outpatient level of care, but recovery is an ongoing process. Ifthoughts to harm yourself or others return, follow the safety plan developed during your stay. Planning for a safe return home includes securing weapons. Our treatment team recommends weaponsbe removed from the home until your outpatient provider reassesses your progress. In rare cases where the items themselvescannot be removed, guns and ammunitionshould be secured separatelyand keys stored by a reliable personoutside of the home. If you were admitted on an involuntary commitment, the police or other legal authorities may be involved in this process. AFTERCARE APPOINTMENTS: * Please call your insurance company prior to your scheduled appointment to confirm your aftercare providers are covered. Take your insurance information to your appointments. WHO TO CALL AND WHEN: Medical Emergencies: For questions or emergencies related to your hospital stay, please contact the Inpatient Behavioral Health Unit at [phone]. A wood model builder is on-call 29/11 for the Behavioral Health Unit for emergencies At any time you feel your situation is an emergency, you may also call 911 immediately. [place] Crisis Hotline: 237 Pending Studies at Discharge: No Stand-Alone Forms: My [facility], Smoking Cessation Medications and DC Order Prescriptions: New hydroxyzine HCl 25 mg Tablet 25 mg PO TID PRN (Reason: anxiety) 30 Days Qty: 90 0RF risperidone 1 mg Tablet 1 mg PO BID 30 Days Qty: 60 0RF Discharge Orders: Discharge Order (Routine); Ordered 11/17/22 Ordered By: Chiara Lion Admission Data Admit Date/Time: 11/13/22 17:38 Attending Provider: Chiara Lion Admit Provider: Chiara Lion Primary Care Provider: PCP,NO Other Interventions: Discharge Summary Assessment (RN) Last Done: 11/17/22 09:30 PSY Interdisciplinary Discharge Planning Last Done: 11/17/22 09:49 Coding Level of Care Code 56259 D/C day mgmt > 30 min Diagnoses Psychotic disorder with delusions F29 Anxiety F41.9 Time Spent (min) 35
[2022-11-17 12:07] LABS: Marijuana Quant, GCMS Urine 356 ng/mL (<5)
[2022-11-17] MEDS ORDERED: risperiDONE 1 MG TABLET PO SCH (21:00)
== END 2022-11-17 10:11 | disposition home or self-care (01) | DRG 885 ==
LOC: ED 12:01 → 3S 17:38

== ENCOUNTER 2023-03-28 21:27 | Inpatient (IN) ==
[2023-03-28 22:09] LABS: Appearance Urine Clear (Clear); Bilirubin Urine Negative (Negative); Blood Urine Negative (Negative); Color Urine Yellow; Glucose Urine UA Negative (Negative); Ketones Urine Trace (Negative); Leukocyte Esterase Urine Negative (Negative); Nitrite Urine Negative (Negative); Protein Urine Negative (Negative); Specific Gravity Urine 1.022 (1.000-1.030); Urobilinogen Urine Negative (Negative)
[2023-03-28 22:28] LABS: Basophils # (auto) 0.05 K/uL (0.00-0.20); Basophils % (auto) 0.4 %; Eosinophils # (auto) 0.14 K/uL (0.00-0.50); Eosinophils % (auto) 1.2 %; Hematocrit (blood only) 45.2 % (42.0-52.0); Hemoglobin 15.4 g/dl (14.0-18.0); Immature Granulocytes # (auto) 0.04 K/uL (0.01-0.20); Immature Granulocytes % (auto) 0.3 %; Lymphocytes # (auto) 2.52 K/uL (1.20-3.40); Lymphocytes % (auto) 21.3 %; Mean Corpuscular Hemoglobin 30.7 pg (25.0-34.0); Mean Corpuscular Hgb Conc 34.1 g/dL (32.0-36.0); Mean Platelet Volume 9.8 fL (9.4-12.4); Monocytes # (auto) 0.85 K/uL (0.11-0.59); Monocytes % (auto) 7.2 %; Neutrophils # (auto) 8.25 K/uL (1.40-6.50); Neutrophils % (auto) 69.6 %; Platelet Count 282 K/uL (130-400); RDW Coefficient of Variation 14.2 % (11.5-14.5); RDW Standard Deviation 46.7 fL (36.4-46.3); Red Blood Count 5.02 M/uL (4.70-6.10); White Blood Count 11.85 K/ul (4.8-10.8)
[2023-03-28 22:30] LABS: Amphetamines+Metham, Urine Neg (Neg); Barbiturates, Urine Neg (Neg); Benzodiazepine, Urine Neg (Neg); Cocaine, Urine Neg (Neg); MDMA (Ecstacy), Urine Neg (Neg); Methadone, Urine Neg (Neg); Opiate, Urine Neg (Neg); Phencyclidine, Urine Neg (Neg)
[2023-03-28 22:38] LABS: Albumin Globulin Ratio 1.6 (0.9-2); Albumin Level 4.4 gm/dl (3.4-5.0); BUN Creatinine Ratio 21.2 (10-20); Bilirubin,Total 0.3 mg/dl (0.2-1.0); Calcium 9.3 mg/dl (8.6-10.3); Creatinine Clr Calc Pharmacy 81.5 ml/min; Est GFR (Non-African American) 101.8 ml/min; Globulin 2.7 gm/dl (2.5-4.0); Potassium 4.3 mmol/L (3.5-5.1); Total Protein 7.1 gm/dl (6.0-8.3)
[2023-03-28 22:54] LABS: Thyroid Stimulating Hormone 3.172 uIu/ml (0.300-4.500)
[2023-03-28] MEDS ORDERED: ACETAMINOPHEN 325 MG TAB PO STA (22:56)
[2023-03-28 23:15] LABS: Acetaminophen < 3 ug/ml (10-30); Salicylate < 3.0 mg/dl (3.0-30)
[2023-03-28] MEDS ORDERED: hydrOXYzine HCl 25 MG TAB PO STA (23:49)
--- NOTE | 2023-03-28 23:58 | Emergency Department Note ---
Impression & Plan Mood disorder ED Provider Note NAME: TERE HAMMONDS AGE: 32 SEX: Male INFORMANT: Patient ED PROVIDER(S): Khoi Hess MD CHIEF COMPLAINT: Mental health evaluation PLAN: Disposition: Admitted Outpatient prescription management: none Referral: None MEDICAL DECISION MAKING: Patient presented because of complaints of mental health evaluation. He had increased anxiety and vague suicidal thoughts without plan. Patient had testing performed. His physical examination was benign. He denied any recent medical issues. Review of systems was negative. The patient had an unremarkable CBC except for subtle leukocytosis. No infectious findings were noted on examination or by history. Patient felt anxious and had a headache after he presented to the ER. He felt was due to anxiety. The patient was given Tylenol and that resolved. He did not have any headache issues earlier today or recently patient had a nonfocal neurologic examination. Patient did request something for anxiety and after record review it looks like he was treated with hydroxyzine as an inpatient here several months ago. Patient was given 50 mg of hydroxyzine orally. Patient was evaluated by ED psychiatric rn case manager. Referral was made to [address] [place] [address]. Patient was evaluated and accepted for inpatient treatment voluntarily. Care/management discussed with: Discussed with ED psychiatric rn case manager Level of care consideration(s): After review of the information above and other included data, I feel the patient requires escalation of care to admission. Triage Nursing notes: reviewed and agree them. Vital Signs: reviewed and remarkable for no significant abnormalities Additional History obtained from: none Chronic Medical/Social Conditions affecting care: Homelessness, anxiety Prior/ Outside/ External records reviewed: Psychiatric note from November 2022 reviewed. Patient was treated for anxiety and depression. He was on Risperdal and Vistaril Differential Diagnosis: Mood disorder, infection, hypoglycemia, electrolyte abnormalities, cardiac sources, intracerebral event, toxicologic, trauma, neurologic, as well as other pathologies. Diagnostics, independently interpreted by me: ECG: none Cardiac Monitoring: none Medical decision rules: none Imaging studies: Deferred HPI: 32 year old Male arrives for mental health evaluation. Patient states that he has had increased anxiety. He notes some vague suicidal thoughts without any plan. When specifically asked he did answers with "I guess so". Patient states he is currently homeless and using [facility] programs. He was staying with friends. Patient notes that he was incarcerated earlier this year and has been bouncing around the area. Patient was previously prescribed medications on discharge but has not been taking them. He cannot give a reason why. He said he just stopped them. Patient also has had no follow-up either for the same reason. Pt denies LOC, headache, fevers, chills, diaphoresis, visual changes, neck pain, chest pain, breathing difficulties, nausea, vomiting, abdominal pain, back pain, melena, hematochezia, urinary symptoms, numbness, weakness, lymphadenopathy, rash, or other complaints.. PAST MEDICAL HISTORY: See Below, anxiety, depression PAST SURGICAL HISTORY: See Below, SOCIAL HISTORY: Homeless. Denies drugs. HOME MEDICATIONS: See Below ALLERGIES: See Below VITALS: See Below PHYSICAL EXAMINATION: GENERAL: Awake, alert, well-appearing, in no distress HENT: Normocephalic, atraumatic. Oropharynx unremarkable. EYES: Normal conjunctiva. Sclera non-icteric. NECK: Inspection normal. Non-tender. Supple. No nuchal rigidity. FROM. No masses. RESPIRATORY: Clear to auscultation. No wheezes. No rales. Normal respiratory effort. CARDIAC: Normal rate. Normal rhythm. No murmurs. No rubs. Extremities warm and well perfused. Pulses equal. No JVD. GI: Soft, non-distended. No tenderness to palpation. No rebound or guarding. No masses. RECTAL: Deferred. MUSCULOSKELETAL: Atraumatic. Chest examination reveals no tenderness. The back is symmetrical on inspection without obvious abnormality. There is no CVA tenderness to palpation. No joint edema. LOWER EXTREMITIES: Calves are equal size bilaterally and non-tender. No edema. No discoloration. NEURO: Normal sensorium. No sensory or motor deficits noted. SKIN: No rash or jaundice noted. PSYCH: Evasive with questioning. Vague SI. No HI. No hallucinations or delusions. PROCEDURES: none CRITICAL CARE: none OBSERVATION NOTE: none Past Med/Surg History Medical History (Updated 03/28/23 @ 23:58 by Khoi Hess MD) Psychotic disorder with delusions Anxiety Bipolar disorder Depression Surgical History No history of previous surgery Family History Denies family history of Ovarian cancer Prostate cancer Myocardial infarction Breast cancer Colorectal cancer Social History Smoking Status: Never smoker Tobacco Type: Cigarettes Hx Alcohol Use: Yes (rarely) Hx Substance Use: No Preferred Language: Georgian Communication Ability: Effective Visual Impairment: No Limitations Hearing Ability: Normal Shake Table Operator Required: No Beliefs That Will Affect Care: None marital status: single Current Living Situation: Significant Other current occupational status: employed and unemployed Feels Safe at Home: Yes Dental Care, Regularly: Yes Physical Activity Frequency: Daily Seatbelt Use: sometimes Sunscreen Use: No Gender Identity: Male Assistive Devices: None Allergies Allergies Allergy/AdvReac Type Severity Reaction Status Date / Time No Known Allergies Allergy Verified 11/02/22 19:44 Home Meds Previous Rx's Medication Instructions Recorded amoxicillin 500 mg tablet 1,000 mg (2 x 500 mg) PO TID 10 03/19/23 days #60 tabs Results & Data (ED) Vital Signs Vital Signs - 24 hr 03/28/23 21:38 03/29/23 00:01 Temperature 36.5 C Temperature Source Temporal Artery Scan Pulse Rate 90 Pulse Rate [Finger] 88 Pulse Rhythm [Finger] Regular Pulse Strength [Finger] Normal Respiratory Rate 18 18 Respiratory Effort / Characteristics Non-Labored Spontaneous Non-Labored Spontaneous Respiratory Depth Normal Normal Respiratory Pattern Regular Blood Pressure 127/73 Blood Pressure [Left Arm] 120/73 Blood Pressure Mean 91 Blood Pressure Mean [Left Arm] 88 Blood Pressure Position [Left Arm] Lying Pulse Oximetry 96 98 Oxygen Delivery Method Room Air Room Air Sepsis Recent Fever Within 48 Hours No Sepsis New/Unexplained Change in Mental Status No Sepsis Action Taken by Nursing No Action Required Laboratory Data 03/28/23 22:02 03/28/23 22:02 Lab Results 03/28/23 03/28/23 03/28/23 Range/Units 21:50 22:00 22:02 WBC 11.85 H (4.8-10.8) K/ul RBC 5.02 (4.70-6.10) M/uL Hgb 15.4 (14.0-18.0) g/dl Hct 45.2 (42.0-52.0) % MCV 90.0 (80.0-100.0) fL MCH 30.7 (25.0-34.0) pg MCHC 34.1 (32.0-36.0) g/dL RDW Std Deviation 46.7 H (36.4-46.3) fL RDW Coeff of Dalila 14.2 (11.5-14.5) % Plt Count 282 (130-400) K/uL MPV 9.8 (9.4-12.4) fL Immature Gran % (Auto) 0.3 % Neut % (Auto) 69.6 % Lymph % (Auto) 21.3 % [place] % (Auto) 7.2 % Eos % (Auto) 1.2 % Baso % (Auto) 0.4 % Neut # (Auto) 8.25 H (1.40-6.50) K/uL Lymph # (Auto) 2.52 (1.20-3.40) K/uL [place] # (Auto) 0.85 H (0.11-0.59) K/uL Eos # (Auto) 0.14 (0.00-0.50) K/uL Baso # (Auto) 0.05 (0.00-0.20) K/uL Immature Gran # (Auto) 0.04 (0.01-0.20) K/uL Sodium 141 (136-145) mmol/L Potassium 4.3 (3.5-5.1) mmol/L Chloride 107 (98-107) mmol/L Carbon Dioxide 28 (21-32) mmol/L Anion Gap 6 (3-11) BUN 21 (6-23) mg/dl Creatinine 0.99 (0.6-1.4) mg/dl Est Cr Clr Drug Dosing 81.5 ml/min Est GFR ( Amer) 118.0 ml/min Est GFR (Non-Af Amer) 101.8 ml/min BUN/Creatinine Ratio 21.2 H (10-20) Glucose 84 (70-99(Fasting)) mg/dl Calcium 9.3 (8.6-10.3) mg/dl Total Bilirubin 0.3 (0.2-1.0) mg/dl AST 25 (13-39) U/L ALT 29 (7-52) U/L Alkaline Phosphatase 67 (34-104) U/L Total Protein 7.1 (6.0-8.3) gm/dl Albumin 4.4 (3.4-5.0) gm/dl Globulin 2.7 (2.5-4.0) gm/dl Albumin/Globulin Ratio 1.6 (0.9-2) TSH 3.172 (0.300-4.500) uIu/ml Urine Color Yellow Urine Appearance Clear (Clear) Urine pH 6.0 (4.5-7.5) Ur Specific [place] 1.022 (1.000-1.030) Urine Protein Negative (Negative) Urine Glucose (UA) Negative (Negative) Urine Ketones Trace H (Negative) Urine Blood Negative (Negative) Urine Nitrite Negative (Negative) Urine Bilirubin Negative (Negative) Urine Urobilinogen Negative (Negative) Ur Leukocyte Esterase Negative (Negative) Salicylates < 3.0 L (3.0-30) mg/dl Urine Opiates Screen Neg (Neg) Ur Methadone, Qual Neg (Neg) Acetaminophen < 3 L (10-30) ug/ml Urine Barbiturates Neg (Neg) Ur Phencyclidine (PCP) Neg (Neg) U Amphetamin/Meth Scrn Neg (Neg) MDMA (Ecstasy) Screen Neg (Neg) U Benzodiazepines Scrn Neg (Neg) Ur Cocaine Metabolite Neg (Neg) U Marijuana (THC) Screen Pos H (Neg) Ethyl Alcohol mg/dL < 10.0 (<10.0) mg/dl SARS-CoV-2, RNA, NAAT NEGATIVE (NEGATIVE) Administered Medications Discontinued Medications Acetaminophen (Acetaminophen 325 Mg Tab) 650 mg PO NOW STA Stop: 03/28/23 22:57 Last Admin: 03/28/23 23:03 Dose: 650 mg Documented By: STEPHANIE Hydroxyzine HCl (Hydroxyzine Hcl 25 Mg Tab) 50 mg PO NOW STA Stop: 03/28/23 23:50 Last Admin: 03/28/23 23:53 Dose: 50 mg Documented By: KIM Discharge Plan Visit Data Chief Complaint: Mental Health Evaluation Stated Complaint: ANXIETY, SUICIDAL THOUGHTS ED Provider: Khoi Hess Discharge Problem: Mood disorder Forms Stand Alone Forms: My [facility], Suicide Prevention Resources Referrals Referrals: PCP,NO [Primary Care Provider] -
[2023-03-29] MEDS ORDERED: BISMUTH SUBSALICYLATE LIQD 236 ML PO PRN (02:54)
[2023-03-29] MEDS ORDERED: hydrOXYzine HCl 25 MG TAB PO PRN ×2 (02:54)
[2023-03-29] MEDS ORDERED: ALUMINUM/MAGNESIUM SUSP 30 ML UDC PO PRN (02:54)
[2023-03-29] MEDS ORDERED: ACETAMINOPHEN 325 MG TAB PO PRN (02:54)
[2023-03-29] MEDS ORDERED: SODIUM CHLORIDE 0.65% NA SOLN 45 ML (OCEAN) PRN (02:54)
[2023-03-29] MEDS ORDERED: MAGNESIUM HYDROXIDE SUSP 30 ML UDC PO PRN (02:54)
--- NOTE | 2023-03-29 09:54 | History & Physical ---
Date of Service March 29, 2023 Impression / Recommendations Impression 32 y/o man with a history of multiple psychiatric admissions for a range of reasons, often alcohol-related and at least once for threatened violence. He was diagnosed with bipolar disorder at another facility from which I don't have records, but he doesn't endorse a history of manic episodes. He is interpersonally exploitative (likes "to hustle"), has a legal history including assault and probation violations. The current admission for reported suicidal thoughts seems clearly to be result of his seeking resources. He no longer endorses any suicidal thoughts and was not able to describe the ones he reported prior to admission. Overall I spent a total of 62 minutes for this admission including review of chart records, review of test results, direct evaluation of the patient [id number], reconciling and ordering medication, medication education with the patient, risk assessment, discussion during interdisciplinary treatment rounds, and documentation in the electronic health record. (1) Malingering: (2) ASHLI (generalized anxiety disorder): (3) Antisocial personality disorder: (4) Alcohol use disorder: Plan Pt requests discharge, which I believe is appropriate. Inventory Assets Strengths: voluntary, intelligent, able to express needs Needs: safety and stabilization, medication adjustment, additional coping skills, increased outpatient services, case management Suicide Risk Level Suicide Risk Level: Moderate (q15 min suicide checks) (threatened suicide in the ED but disavows such thoughts now) Risk Factors Assessment Male: Yes : No Do You Have Access To A Gun?: No Health Problems: No Mental Health Diagnoses: Yes Substance Use Disorders: Yes Previous Attempt: No Previous Psychiatric Hospitalization: Yes Hopelessness: No Protective Factors Assessment : No Responsible for Young Children: No Employed: No Stable Relationships: No Supportive Family: No Good Rapport with Provider: No Psychiatric History Identifying Data TERE HAMMONDS is a 32-year-old M who currently is unhoused, has a history of malingering, mood symptoms, anxiety, and alcohol use disorder, and was admitted on 03/29/23 01:16 on a 201 voluntary commitment for reported suicidal thoughts. Chief Complaint "[]". History of Present Illness As part of a thorough review of the available medical records, I have read and confirmed the following note by the ED physician: "Patient presented because of complaints of mental health evaluation. He had increased anxiety and vague suicidal thoughts without plan. Patient had testing performed. His physical examination was benign. He denied any recent medical issues. Review of systems was negative. The patient had an unremarkable CBC except for subtle leukocytosis. No infectious findings were noted on examination or by history. Patient felt anxious and had a headache after he presented to the ER. He felt was due to anxiety. The patient was given Tylenol and that resolved. He did not have any headache issues earlier today or recently patient had a nonfocal neurologic examination. Patient did request something for anxiety and after record review it looks like he was treated with hydroxyzine as an inpatient here several months ago. Patient was given 50 mg of hydroxyzine orally." the following note by the ED psychiatric case managers: "Met with pt to complete MH assessment. Pt presents as calm with sporadic eye contact. He is evasive answering questions, frequently stating, I dont know. He does endorse suicidal ideations but no specific plan. He denies a history of attempts. He reports increased anxiety and depression lately but denies any change in stressors or triggers. Pt did not follow through with outpatient providers after his most recent discharge and has not been taking any medications. He denies HI/AH/VH/Paranoia. Denies self-injury though does report a history of cutting several years ago. He states his sleep and appetite have been normal. Currently homeless and has been staying at [facility] for the past few months." and the following note by the psychiatric liaison nurse: "Pt calm and cooperative during liaison assessment. Flat affect. Pt willing to answer questions but provides little detail. Pt states wanting inpt. treatment. Pt states he has been suicidal for approx. 2 weeks. States walking self to ED. Unable to determine what brought on these thoughts. Denies any particular life changes. Denies HI/SIB/halluc/delus. Denies specific plan for SI. States smoking marijuana and half a pack of cigarettes per day. Denies wanting nicotine patch or gum. Denies alcohol or other substance abuse. Confirms he is currently homeless and staying with [facility] Pt. denies currently taking any medications or seeing any outpt providers. States sleep and appetite have been adequate. Denies legal issues. Denies access to firearms/lethal weapons. Declines wanting to sign any ROIs at this time. " Review of the medical record reveals psychiatric history of previous admission here in November 2022 during which malingering was suspected, he was very uncooperative and help-rejecting, and somewhat predatory towards a female peer. Pt. carries diagnosis of a range of things that appear to vary by hospitalization. Review of pertinent labs reveals they are noncontributory except for somewhat elevated WBC. A urine toxicology screen was positive for metabolites of cannabis. BAL was <10[ mg/dL]. Pt is very guarded/evasive about symptoms and irritably insists "don't ask me that!" or asks "what's with the stupid questions?" in response to questions about the suicidal thoughts. He does not appear to have followed any aspect of the follow-up plan after discharge and dismisses questions intended to explore obstacles to follow-up as "ridiculous". Says he does not use alcohol and does not have a problem with it (despite an admission in 2019 that was apparently primarily alcohol-related). Reports no drug use, but when told his toxicology screen was positive for cannabinoids says "that's prescribed". Pt reports the hydroxyzine 50 mg TID PRN on which he was discharged was helpful, though of course he was unable to refill it so ran out "a couple of months back". He derides the 25 mg he was given last night (not long after he was given 50 mg in the ED) as "useless". Says he didn't follow up at [facility] following his last discharge because "they were rude" at his initial visit and he never went back. He didn't follow up with any other discharge plans because he reckoned it was somebody else's r esponsibility to contact him and make further arrangements. He's aware he no longer has insurance, but thought that being admitted would automatically reinstate it. He was shocked at the suggestion that unless some other sort of arrangement was made, he'd be getting a bill for this hospitalization, whereupon he immediately said he'd "sign a 72 hour" (request for discharge). Pt has not reported any suicidal thoughts to me, the social worker assistant, or the nurse, each of whom met with him separately and together. He says he's "fine" and "just want[s] to get out of here". Past Psychiatric History Current Psychiatric Diagnosis: Bipolar D/O, Anxiety, Alcohol Use D/O Previous Psych Admissions: November 2022 [facility] ?psychosis, August 2019 at [place] for anger with HI, alcohol use, December 2018 at the [facility] for rachelle/mixed episode (after presenting to the ED intoxicated) Do You Have Access To A Gun?: No History of Previous Suicide Attempt: No Allergies Allergy/AdvReac Type Severity Reaction Status Date / Time No Known Allergies Allergy Verified 11/02/22 19:44 Family History Family History of: Doesn't Know Alcohol History Hx of Alcohol Use Over the Past 12 Months: Yes (occasionally drinks) AUDIT Total Score: 0 Smoking Use Have You Smoked or Used Tobacco Products in the Last 30 Days: Yes tobacco type: cigarettes Smoking Status: Never smoker Smoking packs per day: 0.5 Substance History Hx of Prescription Med Misuse Over the Past 12 Months: No Hx of Over the Counter Med Misuse Over the Past 12 Months: No Hx of Inhalent Misuse Over the Past 12 Months: No Hx of Organic Substance Use Over the Past 12 Months: Yes (smokes marijuana) Hx of Illegal Substances/Street Drug Use Over Past 12 Months: No Problems as a Result of Past Substance Use: None Identified Personal History Beliefs That Will Affect Care: None Hx Legal Problems: Yes (simple assault charges, violation of parole, alcohol use charges) Hx Traumatic Life Events: No Patient History Medical History Malingering Antisocial personality disorder Traits Alcohol use disorder ASHLI (generalized anxiety disorder) Mood disorder Odontalgia Right sided facial pain Psychotic disorder with delusions Anxiety Bipolar disorder Depression Surgical History No history of previous surgery Family History Denies family history of Ovarian cancer Prostate cancer Myocardial infarction Breast cancer Colorectal cancer Social History Smoking Status: Never smoker Tobacco Type: Cigarettes Hx Alcohol Use: Yes (rarely) Hx Substance Use: No Preferred Language: Thai Communication Ability: Effective Visual Impairment: No Limitations Hearing Ability: Normal Tactical Debriefer Required: No Beliefs That Will Affect Care: None marital status: single Current Living Situation: Significant Other current occupational status: employed and unemployed Feels Safe at Home: Yes Dental Care, Regularly: Yes Physical Activity Frequency: Daily Seatbelt Use: sometimes Sunscreen Use: No Gender Identity: Male Assistive Devices: None Review of Systems Psychiatric: as per Subjective / HPI, + irritability and + anxiety; no homicidal ideation, no paranoia and no hallucinations Physical Exam Psychiatric: Orientation: alert, oriented to person and oriented to place; + uncooperative Apperance: appropriately dressed, appropriately groomed and appeared stated age Eye Contact: + poor eye contact Motor Behavior: no abnormal motor movements Speech: normal rate/rhythm/volume of speech Affect: + irritable affect Mood: + irritable mood Thought Process: goal directed thought process and clear/coherent thought process Thought Content: reality based without delusions Suicidal Thoughts: denies suicidal plan and denies suicidal intent; + reports suicidal thoughts (claimed vague thoughts, refused to elaborate in ED. Denies now.) Homicidal Thoughts: denies homicidal thoughts Hallucinations: no auditory hallucinations and no visual hallucinations Cognition: recent memory grossly intact, remote memory grossly intact, attention grossly intact and language grossly intact Estimated Intelligence: consistent with education level Insight: + fair insight Judgment: + fair judgement Generally uncooperative with exam, criticizing questions as "dumb" Vital Signs (Past 24 Hours): Last Vital Signs Temp 36.9 C 03/29/23 06:42 Pulse 51 L 03/29/23 06:43 Resp 16 03/29/23 06:42 BP 110/68 03/29/23 06:43 Pulse Ox 100 03/29/23 02:56 O2 Del Method Room Air 03/29/23 02:56 Exam Statement: A physical exam was performed in the ED for the purposes of medical clearance. I accept that physical as correct and adequate for the purposes of the inpatient physical exam. Results & Data ([facility]) Laboratory Results Laboratory Results - last 24 hr 03/28/23 03/28/23 03/28/23 21:50 22:00 22:02 WBC 11.85 H RBC 5.02 Hgb 15.4 Hct 45.2 MCV 90.0 MCH 30.7 MCHC 34.1 RDW Std Deviation 46.7 H RDW Coeff of Dalila 14.2 Plt Count 282 MPV 9.8 Immature Gran % (Auto) 0.3 Neut % (Auto) 69.6 Lymph % (Auto) 21.3 [place] % (Auto) 7.2 Eos % (Auto) 1.2 Baso % (Auto) 0.4 Neut # (Auto) 8.25 H Lymph # (Auto) 2.52 [place] # (Auto) 0.85 H Eos # (Auto) 0.14 Baso # (Auto) 0.05 Immature Gran # (Auto) 0.04 Sodium 141 Potassium 4.3 Chloride 107 Carbon Dioxide 28 Anion Gap 6 BUN 21 Creatinine 0.99 Est Cr Clr Drug Dosing 81.5 Est GFR ( Amer) 118.0 Est GFR (Non-Af Amer) 101.8 BUN/Creatinine Ratio 21.2 H Glucose 84 Calcium 9.3 Total Bilirubin 0.3 AST 25 ALT 29 Alkaline Phosphatase 67 Total Protein 7.1 Albumin 4.4 Globulin 2.7 Albumin/Globulin Ratio 1.6 TSH 3.172 Urine Color Yellow Urine Appearance Clear Urine pH 6.0 Ur Specific [place] 1.022 Urine Protein Negative Urine Glucose (UA) Negative Urine Ketones Trace H Urine Blood Negative Urine Nitrite Negative Urine Bilirubin Negative Urine Urobilinogen Negative Ur Leukocyte Esterase Negative Salicylates < 3.0 L Urine Opiates Screen Neg Ur Methadone, Qual Neg Acetaminophen < 3 L Urine Barbiturates Neg Ur Phencyclidine (PCP) Neg U Amphetamin/Meth Scrn Neg MDMA (Ecstasy) Screen Neg U Benzodiazepines Scrn Neg Ur Cocaine Metabolite Neg U Marijuana (THC) Screen Pos H U Marijuana THC Carboxy Pending Drug Screen Comment Pending Ethyl Alcohol mg/dL < 10.0 SARS-CoV-2, RNA, NAAT NEGATIVE Current Inpatient Medications Current Inpatient Medications: Current Inpatient Medications Acetaminophen (Acetaminophen 325 Mg Tab) 650 mg PO Q4H PRN PRN Reason: Headache or Minor Fever Stop: 04/28/23 02:53 Al Hydrox/Mg Hydrox/Simethicone (Aluminum/Magnesium Susp 30 Ml Udc) 30 ml PO Q4H PRN PRN Reason: GI Upset Stop: 04/28/23 02:53 Bismuth Subsalicylate (Bismuth Subsalicylate Liqd 236 Ml) 15 ml PO PRN PRN PRN Reason: Loose Stool Stop: 04/28/23 02:53 Hydroxyzine HCl (Hydroxyzine Hcl 25 Mg Tab) 50 mg PO HSZ PRN PRN Reason: Insomnia Stop: 04/28/23 02:53 Hydroxyzine HCl (Hydroxyzine Hcl 25 Mg Tab) 25 mg PO Q4H PRN PRN Reason: Anxiety Stop: 04/28/23 02:53 Magnesium Hydroxide (Magnesium Hydroxide Susp 30 Ml Udc) 30 ml PO DAILY PRN PRN Reason: Constipation Stop: 04/28/23 02:53 Sodium Chloride (Sodium Chloride 0.65% Na Soln 45 Ml ([place])) 1 - 2 sprays NA PRN PRN PRN Reason: Nasal Dryness/Congestion Stop: 04/28/23 02:53
--- NOTE | 2023-03-29 11:38 | Discharge Summary ---
Date of Service March 29, 2023 History of Present Illness As part of a thorough review of the available medical records, I have read and confirmed the following note by the ED physician: "Patient presented because of complaints of mental health evaluation. He had increased anxiety and vague suicidal thoughts without plan. Patient had testing performed. His physical examination was benign. He denied any recent medical issues. Review of systems was negative. The patient had an unremarkable CBC except for subtle leukocytosis. No infectious findings were noted on examination or by history. Patient felt anxious and had a headache after he presented to the ER. He felt was due to anxiety. The patient was given Tylenol and that resolved. He did not have any headache issues earlier today or recently patient had a nonfocal neurologic examination. Patient did request something for anxiety and after record review it looks like he was treated with hydroxyzine as an inpatient here several months ago. Patient was given 50 mg of hydroxyzine orally." the following note by the ED psychiatric case advocate: "Met with pt to complete MH assessment. Pt presents as calm with sporadic eye contact. He is evasive answering questions, frequently stating, I dont know. He does endorse suicidal ideations but no specific plan. He denies a history of attempts. He reports increased anxiety and depression lately but denies any change in stressors or triggers. Pt did not follow through with outpatient providers after his most recent discharge and has not been taking any medications. He denies HI/AH/VH/Paranoia. Denies self-injury though does report a history of cutting several years ago. He states his sleep and appetite have been normal. Currently homeless and has been staying at [facility] for the past few months." and the following note by the psychiatric liaison nurse: "Pt calm and cooperative during liaison assessment. Flat affect. Pt willing to answer questions but provides little detail. Pt states wanting inpt. treatment. Pt states he has been suicidal for approx. 2 weeks. States walking self to ED. Unable to determine what brought on these thoughts. Denies any particular life changes. Denies HI/SIB/halluc/delus. Denies specific plan for SI. States smoking marijuana and half a pack of cigarettes per day. Denies wanting nicotine patch or gum. Denies alcohol or other substance abuse. Confirms he is currently homeless and staying with "[facility] Pt. denies currently taking any medications or seeing any outpt providers. States sleep and appetite have been adequate. Denies legal issues. Denies access to firearms/lethal weapons. Declines wanting to sign any ROIs at this time. " Review of the medical record reveals psychiatric history of previous admission here in November 2022 during which malingering was suspected, he was very uncooperative and help-rejecting, and somewhat predatory towards a female peer. Pt. carries diagnosis of a range of things that appear to vary by hospitaliz ation. Review of pertinent labs reveals they are noncontributory except for somewhat elevated WBC. A urine toxicology screen was positive for metabolites of cannabis. BAL was <10[ mg/dL]. Pt is very guarded/evasive about symptoms and irritably insists "don't ask me that!" or asks "what's with the stupid questions?" in response to questions about the suicidal thoughts. He does not appear to have followed any aspect of the follow-up plan after discharge and dismisses questions intended to explore obstacles to follow-up as "ridiculous". Says he does not use alcohol and does not have a problem with it (despite an admission in 2019 that was apparently primarily alcohol-related). Reports no drug use, but when told his toxicology screen was positive for cannabinoids says "that's prescribed". Pt reports the hydroxyzine 50 mg TID PRN on which he was discharged was helpful, though of course he was unable to refill it so ran out "a couple of months back". He derides the 25 mg he was given last night (not long after he was given 50 mg in the ED) as "useless". Says he didn't follow up at [facility] following his last discharge because "they were rude" at his initial visit and he never went back. He didn't follow up with any other discharge plans because he reckoned it was somebody else's responsibility to contact him and make further arrangements. He's aware he no longer has insurance, but thought that being admitted would automatically reinstate it. He was shocked at the suggestion that unless some other sort of arrangement was made, he'd be getting a bill for this hospitalization, whereupon he immediately said he'd "sign a 72 hour" (request for discharge). Pt has not reported any suicidal thoughts to me, the social media content manager, or the nurse, each of whom met with him separately and together. He says he's "fine" and "just want[s] to get out of here". Physical Exam Psychiatric Orientation: alert, oriented to person and oriented to place; + uncooperative Apperance: appropriately dressed, appropriately groomed and appeared stated age Eye Contact: + poor eye contact Motor Behavior: no abnormal motor movements Speech: normal rate/rhythm/volume of speech Affect: + irritable affect Mood: + irritable mood Thought Process: goal directed thought process and clear/coherent thought process Thought Content: reality based without delusions Suicidal Thoughts: denies suicidal plan and denies suicidal intent; + reports suicidal thoughts (claimed vague thoughts, refused to elaborate in ED. Denies now.) Homicidal Thoughts: denies homicidal thoughts Hallucinations: no auditory hallucinations and no visual hallucinations Cognition: recent memory grossly intact, remote memory grossly intact, attention grossly intact and language grossly intact Estimated Intelligence: consistent with education level Insight: + fair insight Judgment: + fair judgement Vital Signs (Past 24 Hours) Last Vital Signs Temp 36.9 C 03/29/23 11:18 Pulse 55 L 03/29/23 11:18 Resp 16 03/29/23 11:18 BP 120/73 03/29/23 11:18 Pulse Ox 100 03/29/23 11:18 O2 Del Method Room Air 03/29/23 02:56 See admission H&P and DOD assessment. Principal Diagnosis Malingering Psychiatric Data See daily stay summary. In short, safety was maintained and the patient was cooperative with care. Medication changes included resumption of hydroxyzine and they tolerated this well. A family session was not held and safety plan was completed prior to discharge. Pt disavowed suicidal thoughts from the time he arrived on the unit. He slept well but refused to participate in the milieu or in the usual assessment process. He voiced the belief that being admitted would automatically reinstate his insurance and josé miguel access to resources (beyond, in fact, resources that actually exist). When he realized that he'd likely be billed for the hospitalization, he requested discharge. Day of Discharge Assessment Today the patient voices readiness for discharge. They note stable mood and deny thoughts to harm self or others. Thoughts remain organized. There is no evidence of psychosis. They agree to take mediations as prescribed and to consider keeping follow-up appointments. They are stable for discharge to outpatient level of care. Overall I spent a total of 62 minutes on the day of this discharge including review of chart records, review of test results, direct evaluation of the patient [id number], counseling the patient, reconciling and ordering medication, medication education with the patient, risk assessment, discussion during interdisciplinary treatment rounds, and documentation in the electronic health record. Transition of Care Transition Of Care Record: was reviewed with the patient Advance Directives Advance Directives Information Provided: Yes Advance Directives: No Mental Health Advance Directive: No Advance Directives on File: No Living Will: No Power of Street Light Servicer: No Advance Directives Reason:: Declines as Mental Health Visit. Suicide Risk Level Suicide Risk Level Comments: Suicide risk at discharge is deemed low as the patient does not require 24-hr monitoring, has a safety plan, and is free of suicidal ideation at discharge. Risk Factors Assessment Male: Yes : No Do You Have Access To A Gun?: No Health Problems: No Mental Health Diagnoses: Yes Substance Use Disorders: Yes Previous Attempt: No Previous Psychiatric Hospitalization: Yes Hopelessness: No Protective Factors Assessment : No Responsible for Young Children: No Employed: No Stable Relationships: No Supportive Family: No Good Rapport with Provider: No Total Time Total Time Spent: Greater Than 30 Minutes Total Time Includes: Examination of the patient, Discharge Planning, Medication Reconciliation and As well as (documentation) Discharge Data Lab Results 03/28/23 03/28/23 03/28/23 21:50 22:00 22:02 WBC 11.85 H RBC 5.02 Hgb 15.4 Hct 45.2 MCV 90.0 MCH 30.7 MCHC 34.1 RDW Std Deviation 46.7 H RDW Coeff of Dalila 14.2 Plt Count 282 MPV 9.8 Immature Gran % (Auto) 0.3 Neut % (Auto) 69.6 Lymph % (Auto) 21.3 [place] % (Auto) 7.2 Eos % (Auto) 1.2 Baso % (Auto) 0.4 Neut # (Auto) 8.25 H Lymph # (Auto) 2.52 [place] # (Auto) 0.85 H Eos # (Auto) 0.14 Baso # (Auto) 0.05 Immature Gran # (Auto) 0.04 Sodium 141 Potassium 4.3 Chloride 107 Carbon Dioxide 28 Anion Gap 6 BUN 21 Creatinine 0.99 Est Cr Clr Drug Dosing 81.5 Est GFR ( Amer) 118.0 Est GFR (Non-Af Amer) 101.8 BUN/Creatinine Ratio 21.2 H Glucose 84 Calcium 9.3 Total Bilirubin 0.3 AST 25 ALT 29 Alkaline Phosphatase 67 Total Protein 7.1 Albumin 4.4 Globulin 2.7 Albumin/Globulin Ratio 1.6 TSH 3.172 Urine Color Yellow Urine Appearance Clear Urine pH 6.0 Ur Specific [place] 1.022 Urine Protein Negative Urine Glucose (UA) Negative Urine Ketones Trace H Urine Blood Negative Urine Nitrite Negative Urine Bilirubin Negative Urine Urobilinogen Negative Ur Leukocyte Esterase Negative Salicylates < 3.0 L Urine Opiates Screen Neg Ur Methadone, Qual Neg Acetaminophen < 3 L Urine Barbiturates Neg Ur Phencyclidine (PCP) Neg U Amphetamin/Meth Scrn Neg MDMA (Ecstasy) Screen Neg U Benzodiazepines Scrn Neg Ur Cocaine Metabolite Neg U Marijuana (THC) Screen Pos H Ethyl Alcohol mg/dL < 10.0 SARS-CoV-2, RNA, NAAT NEGATIVE Hospital Course (1) Malingering: (2) ASHLI (generalized anxiety disorder): (3) Antisocial personality disorder: (4) Alcohol use disorder: Plan Pt requests discharge, which I believe is appropriate. Mental Health & Subst Abuse Tx Therapist Name of Therapist: PHIL Manufacturing Assembler Name of Manufacturing Assembler: PHIL Post Discharge Appointments Primary Care Physician Name Of Family Doctor/PCP: [facility] Time of Appointment with PCP: please follow up with your family doctor as needed Provider Appointment Comment: [address] [place] [address] [address], [place] [address] Other #2: Name of Aftercare Appointment: [employer] Phone Number of Aftercare Appointment: Time of Aftercare Appointment: please follow up to reinstate insurance again Aftercare Appointment Comment: [address] [place] [address] [address], [place] [address] Contact Information Discharge Address: [facility] of [facility] Discharge Plan Discharge Items Patient Disposition: Home - Self-Care Reason For Visit: DEPRESSION Discharge Diagnosis: Malingering Activity: Resume your previous activity Non-emergency contact: Primary Care Provider and Psychiatrist Call non-emergency contact if: you have any medication questions and your pain is not controlled Follow-up/Referrals: PCP,NO [Primary Care Provider] - Diet: Regular Addtl Attending Provider Instructions: SPECIAL CARE INSTRUCTIONS: 1. Follow through with your scheduled aftercare appointments. If unable to keep an appointment, please call to reschedule. 2. Take your medication only as prescribed. Medication should not be changed or stopped without the approval of your doctor. In the event of worsening symptoms or concerns about side effects, contact your doctor immediately. 3. Utilize new healthy coping skills, anger management skills, and stress management skills learned during your hospitalization. Journal feelings and process them with a support person. Identify stressors or situations that may result in relapse, deterioration or inappropriate behaviors and develop a plan to deal with those issues. 4. If your coping skills are ineffective and you are in crisis, contact your outpatient providers for direction. If unable to reach your providers, please call the [facility] CRISIS LINE AT , go to the [facility] walk-in center at [address], [place], or go to the closest Emergency Room. 5. Avoid alcohol and un-prescribed drugs. 6. You have been provided with the Mental Health Advance Directives Pamphlet for your review. 7. Your condition is stable for discharge to outpatient level of care, but recovery is an ongoing process. Ifthoughts to harm yourself or others return, follow the safety plan developed during your stay. Planning for a safe return home includes securing weapons. Our treatment team recommends weaponsbe removed from the home until your outpatient provider reassesses your progress. In rare cases where the items themselvescannot be removed, guns and ammunitionshould be secured separatelyand keys stored by a reliable personoutside of the home. If you were admitted on an involuntary commitment, the police or other legal authorities may be involved in this process. AFTERCARE APPOINTMENTS: * Please call your insurance company prior to your scheduled appointment to confirm your aftercare providers are covered. Take your insurance information to your appointments. WHO TO CALL AND WHEN: Medical Emergencies: For questions or emergencies related to your hospital stay, please contact the Inpatient Behavioral Health Unit at [phone]. A head of talent management is on-call 29/11 for the Behavioral Health Unit for emergencies At any time you feel your situation is an emergency, you may also call [phone] qasim dimas. Pending Studies at Discharge: No Stand-Alone Forms: [facility], Smoking Cessation Medications and DC Order Prescriptions: New hydroxyzine HCl 50 mg tablet 50 mg PO BLANK 30 Days Qty: 150 0RF Rx Instructions: take one by mouth every 6 hours as needed for anxiety and take two by mouth at bedtime as needed for insomnia Discharge Orders: Discharge Order (Routine); Ordered 03/29/23 Ordered By: Pawel Ocasio Admission Data Admit Date/Time: 03/29/23 01:16 Attending Provider: Pawel Ocasio Admit Provider: Pawel Ocasio Primary Care Provider: PCP,NO Other Interventions: Discharge Summary Assessment (RN) Last Done: 03/29/23 11:18 PSY Interdisciplinary Discharge Planning Last Done: 03/29/23 11:22 Coding Level of Care Code 57600 D/C day mgmt > 30 min Diagnoses Malingering Z76.5 ASHLI (generalized anxiety disorder) F41.1 Antisocial personality disorder F60.2 Alcohol use disorder F10.90 Time Spent (min) 62 Comment total times spent this day, including both admission assessment and discharge
[2023-03-31 09:27] LABS: Marijuana Quant, GCMS Urine 712 ng/mL (<5)
== END 2023-03-29 11:57 | disposition home or self-care (01) | DRG 880 ==
LOC: ED 21:27 → 3S 03-29 01:16

== ENCOUNTER 2023-04-30 19:13 | Inpatient (IN) ==
--- OUTSIDE RECORDS SUMMARY | 2023-04-30 19:17 | External Medical Summary | Summary of Care ---
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 2 by PCR Negative Negative Parainfluenza Virus 3 by PCR Negative Negative Parainfluenza Virus 4 by PCR Negative Negative Respiratory Syncytial Virus by PCR Negative Negative Bordetella pertussis by PCR Negative Negative Chlamydia pneumoniae by PCR Negative Negative Mycoplasma pneumoniae by PCR Negative Negative Bordetella parapertussis by PCR Negative Negative COMPREHENSIVE METABOLIC PANEL Collection Time: 04/24/23 7:35 PM Result Value Ref Range BUN 19 6 - 20 mg/dL Creatinine 0.9 0.6 - 1.2 mg/dL Estimated Glomerular Filtration Rate >90 >=60 mL/min Sodium 137 135 - 146 mmol/L Potassium 4.4 3.5 - 5.1 mmol/L Chloride 101 98 - 107 mmol/L CO2 27 22 - 32 mmol/L Anion Gap 9 7 - 15 mmol/L Glucose 105 70 - 120 mg/dL Albumin 4.4 3.8 - 5.0 g/dL AST 41 10 - 50 U/L Alkaline Phosphatase 83 35 - 130 U/L Bilirubin, Total 0.2 <=1.2 mg/dL Calcium 9.1 8.4 - 10.2 mg/dL Protein 7.3 6.0 - 8.3 g/dL ALT 70 (H) 10 - 50 U/L ETHANOL, MEDICAL Collection Time: 04/24/23 7:35 PM Result Value Ref Range ETHANOL, MEDICAL Negative Negative CBC Collection Time: 04/24/23 7:35 PM Result Value Ref Range WBC 10.68 4.00 - 10.80 K/uL RBC 4.72 4.50 - 5.25 M/uL HGB 14.8 14.0 - 16.8 g/dL HCT 42.0 40.0 - 48.4 % MCV 89.0 82.0 - 99.5 fL MCH 31.4 27.0 - 34.0 pg MCHC 35.2 32.0 - 36.0 g/dL RDW 13.8 11.5 - 15.5 % PLT 261 140 - 400 K/uL MPV 9.3 6.6 - 11.1 fL nRBCs 0 <=0 /100 WBCs DIFFERENTIAL, AUTOMATED Collection Time: 04/24/23 7:35 PM Result Value Ref Range WBC 10.68 4.00 - 10.80 K/uL Neutrophils % 66.8 40.0 - 75.0 % Lymphocytes % 23.0 18.0 - 42.0 % Monocytes % 7.1 1.0 - 11.0 % Eosinophils % 2.3 0.0 - 6.0 % Basophils % 0.5 0.0 - 2.0 % Immature Granulocytes % 0.3 0.0 - 2.0 % Absolute Neutrophils 7.13 1.80 - 7.70 K/uL Absolute Lymphocytes 2.46 1.00 - 4.80 K/ul Absolute Monocytes 0.76 0.00 - 1.10 K/uL Absolute Eosinophils 0.25 0.00 - 0.70 K/uL Absolute Basophils 0.05 0.00 - 0.20 K/uL Absolute Immature Granulocytes 0.03 0.00 - 0.20 K/uL LIPID PANEL WITH DIRECT LDL IF TG IS HIGH Collection Time: 04/24/23 7:35 PM Result Value Ref Range Triglycerides 84 <=174 mg/dL Cholesterol 189 <200 mg/dL HDL Cholesterol 62 >39 mg/dL Non-HDL Cholesterol 127 <=159 mg/dL LDL Cholesterol 110 <=129 mg/dL HEMOGLOBIN A1C Collection Time: 04/24/23 7:35 PM Result Value Ref Range Hemoglobin A1C 5.9 (H) 4.0 - 5.6 % Estimated Average Glucose 123 <126 mg/dL TOXICOLOGY, URINE SCREEN W/O CONFIRMATION Collection Time: 04/24/23 7:44 PM Result Value Ref Range Amphetamines Screen, U Negative Negative Benzodiazepines Screen, U Negative Negative Cannabinoids Screen, U Positive (A) Negative Cocaine Metabolite Screen, U Negative Negative Fentanyl Screen, U Negative Negative Hydrocodone Screen, U Negative Negative Methadone Metabolite Screen, U Negative Negative Morphine/Codeine Screen, U Negative Negative Oxycodone Screen, U Negative Negative PATIENT REPORTED DEPRESSION SCREENING (PHQ9): PHQ9 Survey Results Last 24hours (since 04/25/2023) None DIAGNOSIS: Mood disorder, unspecified Paranoid ideations Antisocial personality disorder traits Cannabis use ASSESSMENT: Darek Florez is a 32 year old male with a past psychiatric history of schizophrenia who was admitted to the Inpatient Psychiatric Unit at [facility] ([facility]) on 04/24/2023 on a 201 (voluntary) commitment for paranoid ideation and suicidal ideations. Darek continues to exhibit paranoid delusions, report paranoid ideations, however he denies perceptual disturbances including no auditory/visual hallucinations, however he was noted to be smiling inappropriately at times with poor eye contact during th encounter. We will continue to gather pertinent information including collateral information from family members. Will increase Seroquel 50 mg PO BID to 100 mg PO BID today and continue Vistaril 50 mg PO TID for anxiety. Will continue to monitor. PLAN: Inpatient psychiatric care is necessary because of of suicidal potential and of inability to care for self due to mental illness . Plan of care includes: 1) 201 (voluntary) commitment 2) Safety Q15 minute checks 3) Supportive milieu and group therapy 4) Safe discharge planning 5) Psychotropic Medications Increase Seroquel 50 mg PO BID to 100 mg PO BID Continue Melatoin 9 mg PO QHS Continue Vistaril 50 mg PO TID for anxiety 6) Medical Medications None 7) Labs UDS (+) for cannabinoids Reviewed CBC, BMP, Ethanol- WNL. Liver enzyme (ALT) elevated at 70 8) IM consult ordered for admission H&P and elevated ALT - Appreciate recommendations - Pending Treatment options and alternatives reviewed with patient and they agree with the above plan. Information about current medications was provided to the patient including reasons why medicationsare being used, risks, benefits, side effects and alternatives to treatment (including no treatment). Signature: Laly Valentino MD 04/26/2023 2:11 PM documented in this encounter H&P Notes * Laly Valentino MD - 04/25/2023 7:36 AM EST ATTENDING STAFF PHYSICIAN NOTE DIVISION OF PSYCHIATRY [facility] [id number] Name: Darek Florez Location: [facility] [id number] Date: 04/25/2023 Time: 7:36 AM Patient location: HOSPITAL. I was not in a hospital or clinic location. After connecting through televideo, patient was identified by name and date of and/or wristband checked. Patient (or authorized legal manufacturing sales representative) was then informed that this was a Telemedicine visit and was being conducted confidentially over secure lines. My office door was closed. No one else was in the room with me.. Patient acknowledged consent and understanding of privacy and security of the Telemedicine visit and gave permission to have a telemedicine presenter stay in the room in order to assist with the history and to conduct the exam as needed. I informed the patient that I have reviewed their record in [facility] and presented the opportunity for them to ask any questions regarding the visit today. The patient agreed to participate. COMMITMENT STATUS: 201 IDENTIFYING INFORMATION: Darek Florez is a 32 year old male. The patient lives at [address] [place] [address] and home phone number is .There is no home phone number on file. Darek Florez was admitted from the Emergency Department HISTORY OF PRESENT ILLNESS: Darek Florez is a 32 year old male with a past psychiatric history ofschizophrenia who was admitted to the Inpatient Psychiatric Unit at [facility]) on 04/24/2023 on a 201 (voluntary) commitment for paranoid ideation and suicidal ideations. As per ED documentation completed by Jeff osuna DO on 04/24/23 at 1942: This is a 32-year-old male, reported psychiatric history, states he was currently on Seroquel and Vistaril, presenting to the emergency department with suicidal ideations. The patient states that theonly reason he was still alive is because of his spirituality. He states he went to [facility] this evening, where they agreed with him that aliens and speech tips are real, but discharged to the street. He states that he feels that he needs psychiatric treatment. Denies any homicidal ideations. He does state that people are out to get him and tried to hurt him, and he does not feel safe. Denies any auditory or visual hallucinations. As per staff admission note: Pt arrived on unit at 0, safety search completed. Pt Sharad HI, admits to SI but no plan. Pt states he is hearing telepathic messages, and he is noted to have Delusions of crooked teacher instrumental, aliens, andmind readers. Pt states the crooked teacher instrumental told him to kill himself. He tried to go to the [facility] but they were full, and Abisai Ott denied him. He was sent here and admitted through the ED. 201 signed. Pt states he was staying with friends but he has been homeless for the past 1.5 months. Pt stateshe used to go to the [facility] on [address] in [place] but he doesn't plan on returning to [place]. Pt states current medications are Vistaril 50-150 mg at bedtime, Seroquel 200 mg, and he said the [facility] put him on Zoloft but he doesn't take it. When asked if was staying at a shelterhe said "No, I'm staying on the streets." Pt said he consented to give mother Rebecca Vázquez informationbut he wants her phone number and other info verified prior to taking a call due to fears of the government. When asked why he feels the government and crooked teacher instrumental are after him he said " Because I know Aliens are real." Head to toe assessment completed, WNL. Pt denies pain or discomfort at this time. + cannaboids on UDS. Paperwork sent from the [facility]. [id number]- Pt's mother verified her Name is Mariusz Shaffer. 1820 As per staff documentation: Pt became upset when he asked for his medication and his medications were not yet ordered. He proceeded to curse at RN, calling him a "fucking faggot." Pt did explain that he just wants his meds and has been compliant with them. [facility] pharmacy contacted for med list. [id number] Today, the patient was seen and assessed at inpatient unit. When asked about the reason of admission, he stated "suicidal thoughts". When asked specifically about feeling depressed, he stated "maybe,but I am not sad". Reports adequate levels of sleep and appetite. Patient taking Melatonin and reports it has been helpful. Reports energy as "OK", denies guilt by stating "fuck no". Currently, Darek denies suicidal intent or plan. States he went recently to the [facility] because"was telling them people are supposed to read minds". He currently denies perpetual disturbances including no auditory/visual hallucinations but was seen to be smiling inappropriately at times duringthe encounter with poor eye contact. Does display paranoid ideations stating "people are after me, crooked teacher instrumental are after me" and seemed to be perseverating on "having a space shift". Patient denies homicidal ideation intent or plan, stating "never". Reports he has been homeless for the past 1.5 months and prior to that was living "with a friends" - he did not want to disclose reason he had to leave his friends' house. Darek states he used to go to the [facility] on [address] in [place] but he doesn't plan on returning to [place] and would rather "go to a fpc or detention house". States he would like to "manage my anxiety" and states he has been taking Vistaril. Prior to completing the encounter, patient asked "Do you give help here with Ativan? Because if not, I just need to keep asking in other hospitals". As per collateral information - pt's mother was contacted (HECTOR signed by patient). And reports Darek had told he has bipolar schizophrenia, dperssion and anxiety. Darek used to live with her back in March 2022 before [facility] as he "violated probation". As per nick's mother, she sates she did notice Darek to "talk by himself, saying he was seeing things, people and spirits and was very paranoid, that I was part of the ARIANNE and the whole family was against him". Last night she received a call from Darek and told her "aliens exist and that he wanted to look for a orthotist to take him to the hospital and very it was true". PSYCHIATRIC REVIEW OF SYMPTOMS: Sleep: "OK" Interest: no change Guilt: no change Energy: "I might be ADHD" Concentration: Fluctuating levles Appetite: "OK" Psychomotor Abnormalities: None Suicidal Thoughts: Denies Anxiety: Yes, however patient unable to specify details Psychosis: Denies auditory/visual hallucinations Rachelle: Denies PSYCHOSOCIAL STRESSORS: employment issues, legal problems, housing issues, financial problems CURRENT MEDICATIONS: Note that completed medications (per the MAR) continue to display for 24 hours. Ordered medicationsto be given in the future also display. Current Facility-Administered Medications Medication Dose Route Frequency Provider Acetaminophen (Tylenol) tab 325 mg 325 mg Oral Q4H PRN Jefry Madrid Jr., MD Or Acetaminophen (Tylenol) tab 650 mg 650 mg Oral Q6H PRN Jefry Madrid Jr., MD Or Acetaminophen (Tylenol) tab 975 mg 975 mg Oral Q6H PRN Jefry Madrid Jr., MD Haloperidol (Haldol) tab 5 mg 5 mg Oral Q6H PRN Jefry Madrid Jr., MD Or Haloperidol Lactate (Haldol) 5 MG/ML inj 5 mg 5 mg Intramuscular Q6H PRN Jefry Madrid Jr., MD house antacid (Mi-Acid II) oral susp 15 mL 15 mL Oral Q4H PRN Jefry Madrid Jr., MD melatonin tab 9 mg 9 mg Oral HS PRN Jefry Madrid Jr., MD milk of magnesia (Mom) oral susp 30 mL 30 mL Oral Daily PRN Jefry Madrid Jr., MD nicotine (Nicorette) gum 4 mg 2 Each Oral Q3H PRN Jefry Madrid Jr., MD ALLERGIES: Patient has no known allergies. PAST PSYCHIATRIC HISTORY: Current Outpatient Psychiatrist: Denies History of psychotherapy: Denies Inpatient hospitalizations: Yes, 8x - last week at [facility] - "for depression and anxiety" and 2days ago at [facility] - however was not admitted to inpatient psychiatry department. Previous Psychiatric Diagnoses: Schizophrenia as per patient Psychotropic Medication Trials/Outcomes: As per chart review from [facility]: Vistaril 50 mg and Seroquel 200 mg PO daily. Compliance with psychiatric mediation prior to hospitalization: no As per [facility] pharmacy - Patient's med list include: Seroquel 200 mg PO TID, Zoloft 50 mg daily, Trileptal 150 mg (3t abs) BID for anger and he had a 10 day script of hydroxyzine 50 mg PO TID filled on 04/30 and hydroxyzine 100 mg that was never filled. History of suicide attempts: Denies History of self injurious behavior: yes, cutting at age 19 Past violent behavior: Patient states [facility], however "don't want to talk about it - is non-sense" Past medication trials: See above ECT: no Neurological history: no PRIMARY CARE PROVIDER: No primary care provider on file. SUBSTANCE USE ASSESSMENT TOBACCO USE: Yes Yes about 1 PPD since age 19 Tobacco Cessation Medication Offered: Yes, Patient agreed to tobacco cessation medication Referral for continued cessation: Declines ALCOHOL USE: Yes Occasional use Rehab: no Alcohol Assessment: 1. How often do you have a drink containing alcohol? Monthly or less (1) 2. How many drinks containing alcohol do you have on a typical day when you are drinking? 1 or 2 (0) 3. How often do you have six or more drinks on one occasion? Never (0) TOTAL SCORE: Add the number for each question to get your total score. 1 Maximum score is 12. Intervention Needed: No intervention needed. Probation on novmenter DRUG USE: Cannabis/Marijuana: Yes, medical THC for anxiety, as per patient Opioids: Denies Methamphetamine: Denies Cocaine: Denies Benzodiazepines: Denies Hallucinogens (PCP, LSD, psilocybin): Denies OTC medications (cough/cold medicines): Denies Hx of IV Drug abuse: Denies Rehab: Denies PERSONAL, FAMILY, AND SOCIAL HISTORY EDUCATION: Completed 12 th Grade OCCUPATIONAL HISTORY: unemployed HISTORY: Denies CURRENT LIVING SITUATION: Homeless for the past 1 month, before was living with a "friend" but did not wish to disclose the reason whe LEGAL HISTORY: yes, patient disclosed [facility] August 2022 after serving 2.5 years. As per patient, he is currently on parole and was charged with "caught with methylphenidate" HISTORY OF VIOLENCE: Patient denies TRAUMA HISTORY: Denies FAMILY HISTORY: Denies Mental illness: no Completed/attempted suicides: no Drug and alcohol abuse: no Ethnic/cultural factors: none: no ethnic/cultural factors applicable No family history on file. MEDICAL HISTORY PAST MEDICAL HISTORY: Reviewed in chart. HOSPITAL PROBLEMS: Pertaining to this admission: Active Problems: Medical marijuana use Resolved Problems: * No resolved hospital problems. * VISUAL OR HEARING IMPAIRMENT: Glasses:: No (04/24/232128) Hearing Aid: No (04/24/232128) INDEPENDENT WITH ACTIVITIES OF DAILY LIVING: Describe the patient's ability prior to admission/observation to perform ADLs: Performs independently (04/24/232128) Mobility: Independent (04/24/232128) MEDICAL REVIEW OF SYSTEMS: History and physical completed by Jeff Osuna DO on 04/24/23 at 1942. Copied below for ease of reference. Initial Vitals (see all): BP 126/64 | Pulse 82 | Resp 20 | Temp 97.9 | O2 98 %Weight 71.85 kg | Height 152.4 cm | BMI 30.94 kg/m2 Physical Exam Vitals and nursing note reviewed. Constitutional: General: He is not in acute distress. Appearance: He is well-developed. HENT: Head: Normocephalic and atraumatic. Mouth/Throat: Mouth: Mucous membranes are moist. Pharynx: Oropharynx is clear. Eyes: Conjunctiva/sclera: Conjunctivae normal. Pupils: Pupils are equal, round, and reactive to light. Cardiovascular: Rate and Rhythm: Normal rate and regular rhythm. Heart sounds: No murmur heard. Pulmonary: Effort: Pulmonary effort is normal. No respiratory distress. Breath sounds: Normal breath sounds. Abdominal: Palpations: Abdomen is soft. Tenderness: There is no abdominal tenderness. Musculoskeletal: General: No swelling. Cervical back: Neck supple. Skin: General: Skin is warm and dry. Capillary Refill: Capillary refill takes less than 2 seconds. Neurological: General: No focal deficit present. Mental Status: He is alert and oriented to person, place, and time. Cranial Nerves: No cranial nerve deficit. Sensory: No sensory deficit. Motor: No weakness. Coordination: Coordination normal. Gait: Gait normal. Psychiatric: Attention and Perception: Attention normal. Mood and Affect: Affect is labile. Speech: Speech is slurred. Behavior: Behavior normal. Behavior is cooperative. Thought Content: Thought content is paranoid and delusional. Thought content includes suicidal ideation. COMPLAINTS OF PAIN: none MOST RECENT VITAL SIGNS: BP: 99 mmHg/59 mmHg (04/25/23 0600) Pulse: 51 (04/25/23 0600) Temp: 36.5 C (04/25/23599) Resp: 16 (04/25/23599) SpO2: 97 % (04/24/232128) PE/LABS/IMAGING: I have reviewed lab and imaging studies as recorded in chart. Recent Results (from the past 336 hour(s)) RESPIRATORY PATHOGEN PANEL, PCR Collection Time: 04/24/23 7:33 PM Result Value Ref Range Adenovirus by PCR Negative Negative Coronavirus 229E by PCR Negative Negative Coronavirus HKU1 by PCR Negative Negative Coronavirus NL63 by PCR Negative Negative Coronavirus OC43 by PCR Negative Negative Coronavirus SARS-CoV-2 by PCR Negative Negative Human Metapneumovirus by PCR Negative Negative Rhinovirus/Enterovirus by PCR Negative Negative Influenza A Virus by PCR Negative Negative Influenza B Virus by PCR Negative Negative Parainfluenza Virus 1 by PCR Negative Negative Parainfluenza Virus 2 by PCR Negative Negative Parainfluenza Virus 3 by PCR Negative Negative Parainfluenza Virus 4 by PCR Negative Negative Respiratory Syncytial Virus by PCR Negative Negative Bordetella pertussis by PCR Negative Negative Chlamydia pneumoniae by PCR Negative Negative Mycoplasma pneumoniae by PCR Negative Negative Bordetella parapertussis by PCR Negative Negative COMPREHENSIVE METABOLIC PANEL Collection Time: 04/24/23 7:35 PM Result Value Ref Range BUN 19 6 - 20 mg/dL Creatinine 0.9 0.6 - 1.2 mg/dL Estimated Glomerular Filtration Rate >90 >=60 mL/min Sodium 137 135 - 146 mmol/L Potassium 4.4 3.5 - 5.1 mmol/L Chloride 101 98 - 107 mmol/L CO2 27 22 - 32 mmol/L Anion Gap 9 7 - 15 mmol/L Glucose 105 70 - 120 mg/dL Albumin 4.4 3.8 - 5.0 g/dL AST 41 10 - 50 U/L Alkaline Phosphatase 83 35 - 130 U/L Bilirubin, Total 0.2 <=1.2 mg/dL Calcium 9.1 8.4 - 10.2 mg/dL Protein 7.3 6.0 - 8.3 g/dL ALT 70 (H) 10 - 50 U/L ETHANOL, MEDICAL Collection Time: 04/24/23 7:35 PM Result Value Ref Range ETHANOL, MEDICAL Negative Negative CBC Collection Time: 04/24/23 7:35 PM Result Value Ref Range WBC 10.68 4.00 - 10.80 K/uL RBC 4.72 4.50 - 5.25 M/uL HGB 14.8 14.0 - 16.8 g/dL HCT 42.0 40.0 - 48.4 % MCV 89.0 82.0 - 99.5 fL MCH 31.4 27.0 - 34.0 pg MCHC 35.2 32.0 - 36.0 g/dL RDW 13.8 11.5 - 15.5 % PLT 261 140 - 400 K/uL MPV 9.3 6.6 - 11.1 fL nRBCs 0 <=0 /100 WBCs DIFFERENTIAL, AUTOMATED Collection Time: 04/24/23 7:35 PM Result Value Ref Range WBC 10.68 4.00 - 10.80 K/uL Neutrophils % 66.8 40.0 - 75.0 % Lymphocytes % 23.0 18.0 - 42.0 % Monocytes % 7.1 1.0 - 11.0 % Eosinophils % 2.3 0.0 - 6.0 % Basophils % 0.5 0.0 - 2.0 % Immature Granulocytes % 0.3 0.0 - 2.0 % Absolute Neutrophils 7.13 1.80 - 7.70 K/uL Absolute Lymphocytes 2.46 1.00 - 4.80 K/ul Absolute Monocytes 0.76 0.00 - 1.10 K/uL Absolute Eosinophils 0.25 0.00 - 0.70 K/uL Absolute Basophils 0.05 0.00 - 0.20 K/uL Absolute Immature Granulocytes 0.03 0.00 - 0.20 K/uL TOXICOLOGY, URINE SCREEN W/O CONFIRMATION Collection Time: 04/24/23 7:44 PM Result Value Ref Range Amphetamine Negative Negative Benzodiazepines Negative Negative Cannabinoids Positive (A) Negative Cocaine Metabolite Negative Negative Fentanyl Negative Negative Hydrocodone / Hydromorphone Negative Negative Methadone Metabolite Negative Negative Morphine / Codeine Negative Negative Oxycodone / Oxymorphone Negative Negative No image results found. MENTAL STATUS EVALUATION: Appearance: age-appropriate and casually dressed Muscle strength and tone: normal muscle strength and tone Gait and Station: no abnormalities noted Personal Presentation: Minimally cooperative at times . Behavior: Inappropriate with milieu at times Speech: normal, rate, tone and volume Mood: anxious Affect: type - dysphoric, mood incongruent, smiling at times; range - constricted; lability - no Associations: circumstantial Thought Process: concrete Abstract Reasoning: Note tested Thought Content: suicidal ideation without intent or plan, paranoid delusions, denies auditory/visual hallucinations Orientation: alert and oriented to person, place, time and situation Recent and remote memory as evidenced by recall of recent circumstances and remote life events: intact Language: intact per interview Fund of knowledge as evidenced by vocabulary and current/historical events: intact Attention span/concentration as evidenced by: ability to sustain attention to examiner - intact Insight: limited Judgment: limited DANGEROUSNESS TO SELF/OTHERS ASSESSMENT (DTSOA): Risk Factors: Suicidal: thoughts Previous suicide attempts: none Current plan for suicide: no plan reported by patient Homicidal: denies ideation/intent/plan Risk Factors: history of depression, anxiety, and unemployment/financial duress/housing Protective Factors: Easy access to clinical interventions: limited Family and community support: unknown Skills in problem solving, conflict resolution and distress tolerance: limited Cultural and taoism beliefs that discourage suicide and support hopefulness: unknown Worship/spirituality/shamar practice: Not Available Active in shamar practice: unknown History of thoughts, no attempts, good impulse control: no Intact relationships with children and or family: no Risk assessment is a dynamic process; it is possible that this patient's condition and risk level may change. This should be re-evaluated and managed over time as appropriate. Based on the current evaluation and risk assessment, patient is determined to be at: Moderate Risk of harm to self or others PATIENT REPORTED DEPRESSION SCREENING (PHQ9): PHQ9 Survey Results Last 24hours (since 04/24/2023) Little interest or pleasure in doing things Nearly everyday Feeling down, depressed or hopeless Nearly everyday Trouble falling or staying asleep, or sleeping too much Nearly everyday Feeling tired or having little energy Nearly everyday Poor appetite or overeating Nearly everyday Feeling bad about yourself - or that you are a failure, or have let yourself or your family down Nearly everyday Trouble concentrating on things, such as reading the newspaper or watching television Nearly everyday Moving or speaking so slowly that other people could have noticed. Or the opposite - being so fidgety or restless that you have been moving around a lot more than usual Nearly everyday Thoughts that you would be better off , or of hurting yourself Nearly everyday PHQ Adult Total Score 27 DIAGNOSIS: Mood disorder, unspecified Paranoid ideations Antisocial personality disorder traits Cannabis use ASSESSMENT: Darek Florez is a 32 year old male with a past psychiatric history of schizophrenia who was admitted to the Inpatient Psychiatric Unit at [facility] ([facility]) on 04/24/2023 on a 201 (voluntary) commitment for paranoid ideation and suicidal ideations. Upon my evaluation today, Darek does report paranoid ideations, however he denies perceptual disturbances including no auditory/visual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 option to sign a 72-hour request to withdrawal from treatment once physically present on the psychiatric unit, to provide written notice to the attending psychiatrist of his/her wish to withdraw from treatment. Attending psychiatrist then has upto 72 hours to evaluate the patient and pursue further involuntary treatment if necessary due to safety risk persisting. Patient admitted to [facility]A. Clinical Impressions Paranoia (HCC) Suicidal ideations Disposition Admitted. I discussed the management of this patient with the admitting provider and I made a decision to admit the patient. Admission Order Ordered Status . 04/24/232052 Admit for Inpatient Services (incl ZPO) ONCE Acknowledged Jeff Osuna * Kyung Plummer RN - 04/24/2023 7:19 PM EST Patient comes into the ED for a psych evaluation. Patient reports feeling like people are after him. Patient relays hat he has a Hx of schizophrenia. Patient reports thoughts of suicide without a plan. Patient appears anxious in triage and is pacing. Patient is talking quickly and not making much sense. documented in this encounter Miscellaneous Notes * Care Plan - Rebeca Hendrix RN - 04/29/2023 12:43 AM EST Clinical Goal(s): pt will attend wrap up this shift (04/28/231999) Possible barriers to meeting goal(s)/advancing plan of care: Poor judgement Stability of the patient: Moderately stable - low risk of patient condition declining or worsening Summary regarding today's goal(s): Met: Attended wrap up Recommendations: Continue to encourage groups * Ancillary Progress Note - Jamal Morrissey MS - 04/28/2023 6:05 PM EST PSYCHIATRY GROUP THERAPY NOTE INPATIENT PSYCHIATRY [facility] [address] Name: Darek Florez Location: [facility] [id number] Date: 04/28/2023 Time: 6:05 PM THERAPEUTIC GROUP ACTIVITIES: Music Therapy: Patient is to select and share their favorite Holiday/Shakira song. Followed by briefly explaining why. Check In: Identify how they are feeling in the moment by using an emotion chart. Report if they accomplished yesterday's goal, and what is their goal for today. Patient Education: Continued to review 13 Ways to Show Respect. Also, turned into a process group, to support a peer.Coping Skills Offered to practice: Painting pine cones, socialization, and listening to music. COMMENTS: Darek attended the last group late today. 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 He interacts withthe few people around him, and he listens a little to the music. He admits he is not comfortable around others, and needs to learn to relax. He talks about recinding his 72 hour notice. He is proud of his accomplishments also. * Ancillary Progress Note - Saundra Avitia Med - 04/28/2023 7:56 AM EST Pt wanted to talk about discharge and reported he does not want to go to the fpc. Auto Parker explained he was denied due to charges. He reports he wants to go to his friends in [place] and hoping we could drop him off at the bus station. Auto Parker explained discharge planning process: medicationmanagement, BCM, and verifying able to stay at his friends house. He is agreeable to medication management and BCM however does not give permission to confirm where he plans to live. He became agitated as evidenced by raising his voice, and stating he is schizoprenic and that he does not trust us to call anyone and reports "how would you verify if I had my own apartment" Auto Parker explained collateral contacts. Auto Parker encouraged him to talk with doctor without cussing and explain his process of what he would like for discharge. Pt mentioned wanting to [facility] and also services in the [employer] in [place]. He reports he can give me an address of his apartment which is " [facility]" He inquired of what day it was, what was the date, and how many days till [place]. * Care Plan - Rebeca Hendrix RN - 04/28/2023 5:16 AM EST Clinical Goal(s): pt will attend wrap up this shift (04/27/23 2300) Possible barriers to meeting goal(s)/advancing plan of care: Poor judgement Stability of the patient: Moderately stable - low risk of patient condition declining or worsening Summary regarding today's goal(s): Met: Attended wrap up Recommendations: Continue to encourage groups * Ancillary Progress Note - Jamal Morrissey MS - 04/27/2023 5:46 PM EST PSYCHIATRY GROUP THERAPY NOTE INPATIENT PSYCHIATRY [facility] [address] Name: Darek Florez Location: [facility] [id number]/B Date: 04/27/2023 Time: 5:46 PM THERAPEUTIC GROUP ACTIVITIES: Music Therapy and Check In: Patients were to select a song that was important to them, and goes as far back as they could remember. Therapist gave an example of a song and short story. Next, identifyhow they were feeling in the moment with the use of an emotion chart. Report if they worked on and accomplished yesterday's goal. What is their goal for today. Patient Education: 13 Ways to Show Respect. Reviewed 2 ways from a handout, and had patient identify which one they will work on. Coping Skills: Create a folder to keep handouts.organized. COMMENTS: Darek attended the morning groups today. He appeared less agitated. However, he sat beside his new female peer, who is close to his age for both groups. In the first group he shared the song, Time after Time by Lisa Rivero. His story was it reminds him of his grandmother, then he added family. He was guarded and not saying anything specific. But, he was appearing calm and sad. At first he joked around about the way he was feeling, and said, Alienated. But, he did not know what that meant. After this, he said he was peaceful and proud, just because. His goal for today was to communicate with the doctor to get meds adjusted. He did not attend the last part of the second group, nor the last group at all. * Ancillary Progress Note - Saundra Av[facility]ia Med - 04/27/2023 1:46 PM EST Met with pt to discuss his requests for discharge planning. He would like to remain in [facility], not go back to [facility]. He agreed to OP medication management and and a BCM. Call to fpc services in [facility] at pt's request. Spoke with Lynnette. Declined due to terroristic threat charges in 2020. * Care Plan - Aniyah Viveros, DANILO - 04/27/2023 2:32 AM EST Clinical Goal(s): Pt will attend wrap-up group this shift (04/26/23 2200) Possible barriers to meeting goal(s)/advancing plan of care: Poor judgement Stability of the patient: Moderately stable - low risk of patient condition declining or worsening Summary regarding today's goal(s): Met: Attended Recommendations: Continue to encourage groups * Ancillary Progress Note - Jamal Morrissey, MS - 04/26/2023 5:10 PM EST PSYCHIATRY GROUP THERAPY NOTE INPATIENT PSYCHIATRY [facility] [address] Name: Darek Florez Location: [facility] [id number]/B Date: 04/26/2023 Time: 5:10 PM THERAPEUTIC GROUP ACTIVITIES: Check In: Patients selected music. Initially, purpose for motivation. Then, turned into music for last group. Identify how they were feeling in the moment with the use of an emotion chart. Discussed if they accomplished yesterday's goal, and what goal will they work on today. Reminiscing: An activity that asked specific things that was done in their past or not. Recreation with music: Balloon volleyball. Purpose to increase motivation. COMMENTS: Darek did not attend groups, but therapist did invite him. He came to therapist in the afternoon demanding some coloring pages ,and was not polite about it. Therapist took him to the kitchen to show him what was there to use, and told him to gather colored pencils. He did become more appropriate after he found what he wanted. * Care Plan - Sara Lees RN - 04/26/2023 12:32 AM EST Clinical Goal(s): Pt will attend wrap up (04/25/23 1900) Possible barriers to meeting goal(s)/advancing plan of care: None Stability of the patient: Moderately unstable - medium risk of patient condition declining or worsening Summary regarding today's goal(s): Met: Pt participated in wrap up Recommendations: Continue plan of care * Ancillary Progress Note - Jamal Morrissey MS - 04/25/2023 5:04 PM EST PSYCHIATRY GROUP THERAPY NOTE INPATIENT PSYCHIATRY [facility] [address] Name: Darek Florez Location: [facility] [id number]/ Date: 04/25/2023 Time: 5:04 PM THERAPEUTIC GROUP ACTIVITIES: Check In: Activity to increase participation, and interact appropriately with one another. Identifyhow they are feeling in the moment, and explain why. Did they accomplish their weekend goal, and what is their goal for today. Relaxation: Meditation that included music. Coping Skills: Creative Expression. Painting pine cones for then s. Also, offered music and socialization. COMMENTS: Darek attended the first and some of the second groups. He would not participate in the activity ofthe first group. Nor, he would not sit with his peers. A few times he laughed briefly at peers' responses to the activity. He was attentive. When asked how he was feeling, he reported he was anxious,and he always feels this way. He also, did not talk about a daily goal. He did accept a paper. In th e second group, he did not sit down at all. Initially, he came in and left a few times till he actually even stayed. He made his way to the window, and stared outside. He expressed he felt both the music and meditation was helpful. He would not to select one. Eventually he rated his level of relaxation at an 8, with 10 being the most relaxed. Therapist invited him to the last group, but came at the end. * Care Plan - Sara Lees RN - 04/25/2023 12:14 AM EST Clinical Goal(s): Pt will verbalize adequate sleep (04/24/232139) Possible barriers to meeting goal(s)/advancing plan of care: None Stability of the patient: Moderately unstable - medium risk of patient condition declining or worsening Summary regarding today's goal(s): Met: Pt states he slept well Recommendations: Continue plan of care * ED Psychiatric Nurse Note - Kathie Ledbetter RN - 04/24/2023 7:35 PM EST Pt came to ED due to psych evaluation. Pt states he doesn't want "crooked teacher instrumental" knowing where he's at. Pt states hx of anxiety. Pt states SI thoughts without plan. Denies hallucinations and delusions. States was in [facility] and got "kicked out" from there recently because they "called him crazy". Pt states was at [facility] and told to come here for placement. Pt states he does not want "teacher instrumental" or "anyone know where I am". Pt noted pressured speech, speech is not making sense and switches to different topics. Pt feels others are out to get him. Denies delusions and hallucinations. During heat and vent aircraft mechanic asked RN if I heard others calling him crazy. PCR sent to lab. Pt was told to change into scrubs for assessment. Pt states "dont want to be here long". Pt denies BARONE, dizziness, SOB, CP, /GI abnormalities. +PMS in extremities. 2000: continuous monitoring at this time. Pt laying in bed on phone. Pt in unit scrubs. Items removed and place in locked locker. 2100: pt continuous monitoring. Laying in bed with call ornelas . On cell phone. Report given to 7a RN. documented in this encounter Plan of Treatment Health Maintenance Due Date Last Done Comments Hepatitis B (1 of 3 - 3-dose series) 1992 COVID-19 Vaccine (#1) 1992 Pneumococcal Vaccine: Pediatrics (0 to 5 Years) and At-Risk Patients (6 to 64 Years) (1 - PCV) 1998 HIV Screening 2007 Hepatitis C Screening 2010 Influenza Vaccine (FLU shot) (#1) 2023 02/26/2016, 02/06/2013 Depression, Most Recent Scor e >= 10 (will fire each visit until score < 10) 04/25/2023 04/24/2023 DTaP,Tdap,and Td Vaccines (4 - Td or Tdap) 10/04/2027 10/03/2017, 10/03/2017, 02/26/2016 GARDASIL-HPV IMMUNIZATION SERIES Aged Out No longer eligible b ased on patient's age to complete this topic MENINGOCOCCAL (MENACTRA/MENVEO) Aged Out No longer eligible b ased on patient's age to complete this topic documented as of this encounter Medical Devices Not on filedocumented as of this encounter Procedures Procedure Name Priority Date/Time Associated Diagnosis Comments HC ECG TRACING ONLY Routine 04/27/2023 1 0:34 AM EST Admission for therapeutic drug monitoring TOXICOLOGY, URINESCREEN W/O CONFIRMATION STAT 04/24/2023 7:44 PM EST DIFFERENTIAL, AUTOMATED STAT 04/24/2023 7:35 PM EST LIPID PANEL WITH DIRECT LDL IF TG IS HIGH Add-on 04/24/2023 7:35 PM EST HEMOGLOBIN A1C Add-on 04/24/2023 7:35 PM EST COMPREHENSIVE METABOLIC PANEL STAT 04/24/2023 7:35 PM EST CBC STAT 04/24/2023 7:35 PM EST ETHANOL, MEDICAL STAT 04/24/2023 7:35 PM EST CBC STAT 04/24/2023 7:35 PM EST RESPIRATORY PATHOGEN PANEL, PCR STAT 04/24/2023 7:33 PM EST documented in this encounter Results * EKG (04/27/2023 10:34 AM EST) 04/27/2023 10:3 4 AM EST Narrative Procedure Note Chris Laws, - 04/27/2023 10:34 AM EST REASON FOR STUDY: Admission for therapeutic drug monitoring CONCLUSIONS: Normal sinus rhythm Left ventricular hypertrophy Abnormal ECG No previous ECGs available Ventricular Rate: 65 Atrial Rate: 65 NV Interval: 128 QRS Duration: 94 QT/QTc: 398/413 ms P-R-T [place]: 67 : 74 : 47 degrees Laly Valentino MD EKG Performing Organization Address City/State/[facility] Co de Phone Number [facility] * (ABNORMAL) TOXICOLOGY, URINESCREEN W/O CONFIRMATION (04/24/2023 7:44 PM EST) [facility] Amphetamines Screen, U Negative Negative 04/24/2023 8:30 PM EST LAB[facility]ATORY [facility] Benzodiazepines Screen, U Negative Negative 04/24/2023 8:30 PM EST [facility] Cannabinoids Screen, U Positive(A) Negative 04/24/2023 8:30 PM EST [facility] Cocaine Metabolite Screen, U Negative Negative 04/24/2023 8:30 PM EST LABORATORY [facility] Fentanyl Screen, U Negative Negative 2022 8:30 PM EST [facility] Hydrocodone Screen, U Negative Negative 04/24/2023 8:30 PM EST [facility] Methadone Metabolite Screen, U Negative Negative 04/24/2023 8:30 PM EST [facility] Morphine/Codeine Screen, U Negative Negative 04/24/2023 8:30 PM EST [facility] Oxycodone Screen, U Negative Negative 04/24/2023 8:30 PM EST [facility] Urine Non-blood Collection / Unknown 04/24/2023 7:44 PM EST 04/24/2023 7:48 PM EST Narrative [facility] - 04/24/2023 8:30 PM EST Cutoff Concentrations: Drug Level Amphetamines 500 ng/mL Benzodiazepines 100 ng/mL Cannabinoids 50 ng/mL Cocaine Metabolite 150 ng/mL Fentanyl 1 ng/mL Hydrocodone / Hydromorphone 300 ng/mL Methadone Metabolite 100 ng/mL Morphine / Codeine 300 ng/mL Oxycodone / Oxymorphone 100 ng/mL Screening results are presumptive and can only be used for medical purposes. Confirmatory testing is available upon request. Jeff D Hark DO LAB URINE ORDERABLES Performing Organization Address City/[facility]/ZIP Co de Phone Number LABORATORY [facility] [address] [place], [place] [id number] * (ABNORMAL) HEMOGLOBIN A1C (04/24/2023 7:35 PM EST) Hemoglobin A1C 5.9(H) 4.0 - 5.6 % 04/25/2023 6:03 PM EST LABORATORY [facility] [place] Comment:The use of HbA1c to monitor glycemic status is based on normal hemoglobin and HbA composition. This test should not be used in patients with abnormal hemoglobin that affects the half life of the red blood cell or the in vivo glycation rates. Estimated Average Glucose 123 <126 mg/dL 04/25/2023 6:03 PM EST LABORATORY [facility] Blood Venous blood specimen / Unknown Venipuncture / Unknown 04/24/2023 7:35 PM EST 04/24/2023 7:39 PM EST Jefry Madrid Jr., MD LAB BLOOD ORDERABLES Performing Organization Address [facility] Co de Phone Number LABORATORY [facility] [address] [place] [address] * LIPID PANEL WITH DIRECT LDL IF TG IS HIGH (04/24/2023 7:35 PM EST) Pathologist [facility] Triglycerides 84 <=174 mg/dL 04/25/2023 5:52 PM EST LABORATORY [facility] [place] Comment: Triglyceride Reference Ranges (mg/dL): <150 Acceptable 150-174 Borderline high 175-499 High >=500 Very high Cholesterol 189 <200 mg/dL 04/25/2023 5:52 PM EST LABORATORY [facility] Comment: Total Cholesterol Reference Ranges (mg/dL): <200 Desirable 200-239 Borderline high >=240 High HDL Cholesterol 62 >39 mg/dL 5:52 PM EST LABORATORY [facility] [place] Comment: HDL Cholesterol Reference Ranges (mg/dL): >=60 High (Desirable) <50 Low (Undesirable) For Females <40 Low (Undesirable) For Males Non-HDL Cholesterol 127 <=159 mg/dL 04/25/2023 5:52 PM EST LABORATORY [facility] [place] Comment: Non-HDL Cholesterol Reference Range (mg/dL): <100 Target level for high risk ASCVD patient <130 Optimal for general population 130-159 Near optimal for general population 160-189 Borderline High 190-219 High >=220 Very High LDL Cholesterol 110 <=129 mg/dL 04/25/2023 5:52 PM EST LABORATORY [facility] [place] [place] Comment: LDL Cholesterol Reference Ranges (mg/dL): <70 Target level for high risk ASCVD patient <100 Optimal for general population 100-129 Near optimal for general population 130-159 Borderline high 160-189 High >=190 Very high Blood Venous blood specimen / Unknown Venipuncture / Unknown 04/24/2023 7:35 PM EST 04/24/2023 7:39 PM EST Jefry Madrid Jr., MD LAB BLOOD ORDERABLES LABORATORY [facility] [address] [place] [address] * DIFFERENTIAL, AUTOMATED (04/24/2023 7:35 PM EST) WBC 10.68 4.00 - 10.80 K/uL 04/24/2023 7:43 PM EST [facility] Neutrophils % 66.8 40.0 - 75.0 % 04/24/2023 7:43 PM EST [facility] Lymphocytes % 23.0 18.0 - 42.0 % 04/24/2023 7:43 PM EST [facility] Monocytes % 7.1 1.0 - 11.0 % 04/24/2023 7:43 PM EST [facility] Eosinophils % 2.3 0.0 - 6.0 % 04/24/2023 7:43 PM EST [facility] Basophils % 0.5 0.0 - 2.0 % 04/24/2023 7:43 PM EST [facility] Immature Granulocytes % 0.3 0.0 - 2.0 % 04/24/2023 7:43 PM EST [facility] Absolute Neutrophils 7.13 1.80 - 7.70 K/uL 04/24/2023 7:43 PM EST [facility] Absolute Lymphocytes 2.46 1.00 - 4.80 K/ul 04/24/2023 7:43 PM EST [facility] Absolute Monocytes 0.76 0.00 - 1.10 K/uL 04/24/2023 7:43 PM EST LABORATORY GL Absolute Eosinophils 0.25 0.00 - 0.70 K/uL 04/24/2023 7:43 PM EST [facility] Absolute Basophils 0.05 0.00 - 0.20 K/uL 04/24/2023 7:43 PM EST LABORATORY GL Absolute Immature Granulocytes 0.03 0.00 - 0.20 K/uL 04/24/2023 7:43 PM EST LABORATORY GL Blood Venous blood specimen / Unknown Venipuncture / Unknown 04/24/2023 7:35 PM EST 04/24/2023 7:39 PM EST Jeff Osuna DO LAB BLOOD ORDERABLES LABORATORY [address] [address] * CBC (04/24/2023 7:35 PM EST) WBC 10.68 4.00 - 10.80 K/uL 04/24/2023 7:43 PM EST LABORATORY [facility] RBC 4.72 4.50 - 5.25 M/uL 04/24/2023 7:43 PM EST LABORATORY GL HGB 14.8 14.0 - 16.8 g/dL 04/24/2023 7:43 PM EST LABORATORY GL HCT 42.0 40.0 - 48.4 % 04/24/2023 7:43 PM EST LABORATORY GL MCV 89.0 82.0 - 99.5 fL 04/24/2023 7:43 PM EST LABORATORY GL MCH 31.4 27.0 - 34.0 pg 04/24/2023 7:43 PM EST LABORATORY GL MCHC 35.2 32.0 - 36.0 g/dL 04/24/2023 7:43 PM EST LABORATORY GL RDW 13.8 11.5 - 15.5 % 04/24/2023 7:43 PM EST LABORATORY GL PLT 261 140 - 400 K/uL 04/24/2023 7:43 PM EST LABORATORY GL MPV 9.3 6.6 - 11.1 fL 04/24/2023 7:43 PM EST LABORATORY GL nRBCs 0 <=0 /100 WBCs 04/24/2023 7:43 PM EST LABORATORY GL Blood Venous blood specimen / Unknown Venipuncture / Unknown 04/24/2023 7:35 PM EST 04/24/2023 7:39 PM EST Jeff Samra Kaz DO LAB BLOOD ORDERABLES Performing Organization Address [facility]/ZIP Co de Phone Number LABORATORY [address] [address] * ETHANOL, MEDICAL (04/24/2023 7:35 PM EST) ETHANOL, MEDICAL Negative Negative 04/24/2023 7:59 PM EST LABORATORY GL Blood Venous blood specimen / Unknown Venipuncture / Unknown 04/24/2023 7:35 PM EST 04/24/2023 7:39 PM EST Jeff Cabrales Kaz LAB BLOOD ORDERABLES Performing Organization Address City/[facility] Co de Phone Number LABORATORY [address] [address] * (ABNORMAL) COMPREHENSIVE METABOLIC PANEL (04/24/2023 7:35 PM EST) Pathologist [facility] BUN 19 6 - 20 mg/dL 04/24/2023 7:59 PM EST [facility] Creatinine 0.9 0.6 - 1.2 mg/dL 04/24/2023 7:59 PM EST [facility] Estimated Glomerular Filtration Rate >90 >=60 mL/min 04/24/2023 7:59 PM EST [facility] Comment:eGFR is calculated b ased on the CKD-EPI 2020 equation Sodium 137 135 - 146 mmol/L 04/24/2023 7:59 PM EST [facility] Potassium 4.4 3.5 - 5.1 mmol/L 04/24/2023 7:59 PM EST [facility] Chloride 101 98 - 107 mmol/L 04/24/2023 7:59 PM EST [facility] CO2 27 22 - 32 mmol/L 04/24/2023 7:59 PM EST [facility] Anion Gap 9 7 - 15 mmol/L 04/24/2023 7:59 PM EST LABORATORY GL Glucose 105 70 - 120 mg/dL 04/24/2023 7:59 PM EST [facility] Albumin 4.4 3.8 - 5.0 g/dL 04/24/2023 7:59 PM EST LABORATORY GL AST 41 10 - 50 U/L 04/24/2023 7:59 PM EST LABORATORY GL Alkaline Phosphatase 83 35 - 130 U/L 04/24/2023 7:59 PM EST LABORATORY GL Bilirubin, Total 0.2 <=1.2 mg/dL 04/24/2023 7:59 PM EST [facility] Calcium 9.1 8.4 - 10.2 mg/dL 04/24/2023 7:59 PM EST [facility] Protein 7.3 6.0 - 8.3 g/dL 04/24/2023 7:59 PM EST LABORATORY GL ALT 70(H) 10 - 50 U/L 04/24/2023 7:59 PM EST LABORATORY GL Blood Venous blood specimen / Unknown Venipuncture / Unknown 04/24/2023 7:35 PM EST 04/24/2023 7:39 PM EST Jeff Osuna DO LAB BLOOD ORDERABLES LABORATORY [address] [address] * RESPIRATORY PATHOGEN PANEL, PCR (04/24/2023 7:33 PM EST) Adenovirus by PCR Negative Negative 023 8:[address] [facility] Coronavirus 229E by PCR Negative Negative 04/24/2023 8:[address] [facility] Coronavirus HKU1 by PCR Negative Negative 04/24/2023 8:[address] [facility] Coronavirus NL63 by PCR Negative Negative 04/24/2023 8:[address] [facility] Coronavirus OC43 by PCR Negative Negative 04/24/2023 8:[address] [facility] Coronavirus SARS-CoV-2 by PCR Negative Negative 04/24/2023 8:[address] [facility] Human Metapneumovirus by PCR Negative Negative 04/24/2023 8:[address] [facility] Rhinovirus/Enterovi marcella by PCR Negative Negative 04/24/2023 8:25 PM EST [facility] Influenza A Virus by PCR Negative Negative 04/24/2023 8:[address] [facility] Influenza B Virus by PCR Negative Negative 04/24/2023 8:[address] [facility] Parainfluenza Virus 1 by PCR Negative Negative 04/24/2023 8:[address] [facility] Parainfluenza Virus 2 by PCR Negative Negative 04/24/2023 8:[address] [facility] Parainfluenza Virus 3 by PCR Negative Negative 04/24/2023 8:[address] [facility] Parainfluenza Virus 4 by PCR Negative Negative 04/24/2023 8:[address] [facility] Respiratory Syncytial Virus by PCR Negative Negative 04/24/2023 8:[address] [facility] Bordetella pertussis by PCR Negative Negative 04/24/2023 8:[address] [facility] Chlamydia pneumoniae by PCR Negative Negative 04/24/2023 8:[address] [facility] Mycoplasma pneumoniae by PCR Negative Negative 04/24/2023 8:[address] [facility] Bordetella parapertussis by PCR Negative Negative 04/24/2023 8:[address] [facility] Comment: The primers that detect Rhinovirus may cross react with some Enterorviruses. The validation of bronchial specimens, tracheal aspirates, and throats for this assay was developed and performance characteristics determined by [employer]. The validation of alternate specimen types has not been cleared or approved by the U.S. Food and Drug Administration (FDA). It has been determined that such clearance or approval is not necessary. Upper Respiratory Mid-turbinate nasal swab / Unknown Non-blood Collection / Unknown 04/24/2023 7:33 PM EST 04/24/2023 7:36 PM EST Jeff Osuna DO LAB MICRO - GENERAL ORDERABLES [facility]ATORY [facility] [address] [place] [address] documented in this encounter Visit Diagnoses Diagnosis Paranoia (HCC)- Primary Delusional disorder Paranoia (HCC) Delusional disorder Suicidal ideations Suicidal ideation Admission for therapeutic drug monitoring Encounter for therapeutic drug monitoring Medical marijuana use Encounter for long-term (current) use of other medications Unspecified mood (affective) disorder (HCC) Anxiety disorder Anxiety state, unspecified Antisocial personality disorder (HCC) Antisocial personality disorder documented in this encounter Administered Medications Inactive Administered Medications - up to 3 most recent administrations Medication Order MAR Action Action Date Dose Rate Site Acetaminophen (Tylenol) tab 325 mg 325 mg, Oral, Q4H PRN Pain, Mild, Starting on Tue04/24/23 at 2052, Until Tue04/29/23 at 1625, Maximum of 4 grams (4000 mg) per day. Acetaminophen (Tylenol) tab 650 mg 650 mg, Oral, Q6H PRN Pain, Moderate, Fever >38C(100.5F), Starting on Tue04/24/23 at 2051, Until Tue04/29/23 at 1625, Maximum of 4 grams (4000 mg) per day. Acetaminophen (Tylenol) tab 975 mg 975 mg, Oral, Q6H PRN Pain, Severe, Starting on Tue04/24/23 at 2051, Until Tue04/29/23 at 1625, Maximum of 4 grams (4000 mg) per day. Haloperidol (Haldol) tab 5 mg 5 mg, Oral, Q6H PRN Other, Psychosis/agitation, Starting on Tue04/25/23 at 1652, Until Tue04/29/23 at 0931 Given 04/29/2023 9:24 AM EST 5 mg Given 04/28/2023 5:39 PM EST 5 mg Given 04/27/2023 9:11 AM EST 5 mg house antacid (Mi-Acid II) oral susp 15 mL 15 mL, Oral, Q4H PRN Indigestion, Nausea, Starting on Tue04/24/23 at 2050, Until Tue04/29/23 at 1625, SHAKE WELL hydrOXYzine (Atarax) tab 10 mg 10 mg, Oral, DAILY PRN Anxiety, Starting on Tue04/27/23 at 0909, Until Tue04/29/23 at 1625 Given 04/29/2023 9:24 AM EST 10 mg Given 04/28/2023 5:39 PM EST 10 mg hydrOXYzine HCl tab 50 mg 50 mg, Oral, TID PRN Anxiety, Starting on Tue04/25/23 at 0859, Until Tue04/25/23 at 1113 Given 04/25/2023 9:35 AM EST 50 mg hydrOXYzine HCl tab 50 mg 50 mg, Oral, TID(AM/NOON/HS), First dose (after last modification) on Tue04/25/23 at 1600, Until Discontinued Given 04/29/2023 8:01 AM EST 50 mg Given 04/28/2023 8:41 PM EST 50 mg Given 04/28/2023 3:37 PM EST 50 mg melatonin tab 9 mg 9 mg, Oral, HS PRN Sleep, Insomnia, Starting on Tue04/24/23 at 2219, Until Tue04/27/23 at 2218, For 3 days Given 04/27/2023 8:39 PM EST 9 mg Given 04/26/2023 8:29 PM EST 9 mg Given 04/24/2023 10:57 PM EST 9 mg milk of magnesia (Mom) oral susp 30 mL 30 mL, Oral, DAILY PRN Constipation, Starting on Tue04/24/23 at 2050, Until Tue04/29/23 at 1625 nicotine (Nicorette) gum 4 mg 4 mg (2 Each), Oral, Q3H PRN nicotine cravings, Starting on Tue04/24/23 at 2158, Until Tue04/29/23 at 1625, Do not eat or drink for 15 min before and during use; Do not exceed 24 pieces/24 hours WASTE INFO: Return packaging and waste medication in zip lock bag to pharmacy - [facility] container. Given 04/28/2023 8:42 PM EST 4 mg Given 04/28/2023 2:51 PM EST 4 mg Given 04/27/2023 4:11 PM EST 4 mg OLANZapine (zyPREXA IM) inj 10 mg 10 mg, Intramuscular, Q8H PRN For agitation/hallucinations. May give IM if unable to give PO. Total dosage to not exceed 30 mg daily, Starting on Tue04/29/23 at 0931, Until Tue04/29/23 at 1625, Upon reconstitution with 2.1 mL of Sterile Water for Injection, each mL will contain 5 mg of olanzapine. Expires 1 hour after mixing. OLANZapine (zyPREXA) tab 5 mg 5 mg, Oral, Q6H PRN Agitation, Hallucinations, May give IM if resuing PO. Total dosage to not exceed 30 mg daily, Starting on Tue04/29/23 at 0931, Until Tue04/29/23 at 1625 OXcarbazepine (Trileptal) tab 150 mg 150 mg, Oral, BID (.AM/PM), First dose on Tue04/27/23 at 0945, Until Discontinued Given 04/29/2023 8:01 AM EST 150 mg Given 04/28/2023 8:41 PM EST 150 mg Given 04/28/2023 7:58 AM EST 150 mg QUEtiapine (SEROquel) tab 100 mg 100 mg, Oral, BID (.AM/PM), First dose (after last modification) on Tue04/26/23 at 0900, Until Discontinued Given 04/29/2023 8:01 AM EST 100 mg Given 04/28/2023 8:41 PM EST 100 mg Given 04/28/2023 7:58 AM EST 100 mg QUEtiapine (SEROquel) tab 200 mg 200 mg, Oral, BID (.AM/PM), First dose (after last modification) on Tue04/29/23 at 2100, Until Discontinued QUEtiapine (SEROquel) tab 50 mg 50 mg, Oral, BID (.AM/PM), First dose (after last modification) on Tue04/25/23 at 2100, Until Discontinued Given 04/25/2023 8:54 PM EST 50 mg documented in this encounter Active and Recently Administered Medications Times are shown in EST. Scheduled Medication Order 04/27/2023 04/28/2023 04/29/2023 hydrOXYzine HCl tab 50 mg 50 mg, Oral, TID(AM/NOON/HS), First dose (after last modification) on Tue04/25/23 at 1600, Until Discontinued 075 (Given - Provider: Jim Beckwith RN)161 (Given - Provider: Jim Beckwith RN)2038 (Given - Provider: Mary Fam RN) 0758 (Given - Provider: Nguyễn Villarreal RN)1537 (Given - Provider: Wayne Monroy RN)204 (Given - Provider: Sara Lees RN) 0801 (Given - Provider: Jim Beckwith RN) OXcarbazepine (Trileptal) tab 150 mg 150 mg, Oral, BID (.AM/PM), First dose on Tue04/27/23 at 0945, Until Discontinued 1238 (Given - Provider: Jim Bekcwith RN)2038 (Given - Provider: Mary Fam RN) 0758 (Given - Provider: Nguyễn Villarreal, DANILO)2040 (Given - Provider: Sara Lees, RN) 0801 (Given - Provider: Jim Beckwith, DANILO) QUEtiapine (SEROquel) tab 100 mg (CANCELED) 100 mg, Oral, BID (.AM/PM), First dose (after last modification) on Tue04/26/23 at 0900, Until Discontinued 075 (Given - Provider: Jim Beckwith RN)2039 (Given - Provider: Mary Fam RN) 075 (Given - Provider: Nguyễn Villarreal RN)2040 (Given - Provider: Sara Lees, DANILO) 0801 (Given - Provider: Jim Beckwith RN) QUEtiapine (SEROquel) tab 200 mg 200 mg, Oral, BID (.AM/PM), First dose (after last modification) on Tue04/29/23 at 2100, Until Discontinued PRN Medication Order 04/27/2023 04/28/2023 04/29/2023 Acetaminophen (Tylenol) tab 325 mg(Linked Group 1) 325 mg, Oral, Q4H PRN Pain, Mild, Starting on 04/24/23 at 205, Until Tue04/29/23 at 1625, Maximum of 4 grams (4000 mg) per day. Acetaminophen (Tylenol) tab 650 mg(Linked Group 1) 650 mg, Oral, Q6H PRN Pain, Moderate, Fever >38C(100.5F), Starting on 04/24/23 at 205, Until Tue04/29/23 at 1625, Maximum of 4 grams (4000 mg) per day. Acetaminophen (Tylenol) tab 975 mg(Linked Group 1) 975 mg, Oral, Q6H PRN Pain, Severe, Starting on 04/24/23 at 2052, Until Tue04/29/23 at 1625, Maximum of 4 grams (4000 mg) per day. Haloperidol (Haldol) tab 5 mg (CANCELED)(Linked Group 2) 5 mg, Oral, Q6H PRN Other, Psychosis/agitation, Starting on 04/25/23 at 1652, Until Tue04/29/23 at 0931 0911 (Given - Provider: Jim Beckwith, DANILO) 1739 (Given - Provider: Candace Peña, DANILO) 0924 (Given - Provider: Jim Beckwith, DANILO) house antacid (Mi-Acid II) oral susp 15 mL 15 mL, Oral, Q4H PRN Indigestion, Nausea, Starting on 04/24/23 at 2050, Until Tue04/29/23 at 1625, SHAKE WELL hydrOXYzine (Atarax) tab 10 mg 10 mg, Oral, DAILY PRN Anxiety, Starting on Tue04/27/23 at 0909, Until Tue04/29/23 at 1625 1739 (Given - Provider: Candace Peña, DANILO) 0924 (Given - Provider: Jim Beckwith, DANILO) melatonin tab 9 mg () 9 mg, Oral, HS PRN Sleep, Insomnia, Starting on Tue04/24/23 at 2219, Until Tue04/27/23 at 2218, For 3 days 2038 (Given - Provider: Mary Fam RN) milk of magnesia (Mom) oral susp 30 mL 30 mL, Oral, DAILY PRN Constipation, Starting on Tue04/24/23 at 2050, Until Tue04/29/23 at 1625 nicotine (Nicorette) gum 4 mg 4 mg (2 Each), Oral, Q3H PRN nicotine cravings, Starting on Tue04/24/23 at 2158, Until Tue04/29/23 at 1625, Do not eat or drink for 15 min before and during use; Do not exceed 24 pieces/24 hours WASTE INFO: Return packaging and waste medication in zip lock bag to pharmacy - [facility] container. 0931 (Given - Provider: Jim Beckwith RN)1611 (Given - Provider: Jim Beckwith RN) 145 (Given - Provider: Nguyễn Villarreal RN)2041 (Given - Provider: Sara Lees RN) OLANZapine (zyPREXA IM) inj 10 mg(Linked Group 3) 10 mg, Intramuscular, Q8H PRN For agitation/hallucinations. May give IM if unable to give PO. Total dosage to not exceed 30 mg daily, Starting on Tue04/29/23 at 0931, Until Tue04/29/23 at 1625, Upon reconstitution with 2.1 mL of Sterile Water for Injection, each mL will contain 5 mg of olanzapine. Expires 1 hour after mixing. OLANZapine (zyPREXA) tab 5 mg(Linked Group 3) 5 mg, Oral, Q6H PRN Agitation, Hallucinations, May give IM if resuing PO. Total dosage to not exceed 30 mg daily, Starting on Tue04/29/23 at 0931, Until Tue04/29/23 at 1625 Linked Groups Order Group 1: Acetaminophen (Tylenol) tab 325 mgJump to med 325 mg, Oral, Q4H PRN Pain, Mild, Starting on Tue04/24/23 at 2052, Until Tue04/29/23 at 1625, Maximum of 4 grams (4000 mg) per day. Or Acetaminophen (Tylenol) tab 650 mgJump to med 650 mg, Oral, Q6H PRN Pain, Moderate, Fever >38C(100.5F), Starting on Tue04/24/23 at 2052, Until Tue04/29/23 at 1625, Maximum of 4 grams (4000 mg) per day. Or Acetaminophen (Tylenol) tab 975 mgJump to med 975 mg, Oral, Q6H PRN Pain, Severe, Starting on Tue04/24/23 at 2052, Until Tue04/29/23 at 1625, Maximum of 4 grams (4000 mg) per day. Group 2: Haloperidol (Haldol) tab 5 mg (CANCELED)Jump to med 5 mg, Oral, Q6H PRN Other, Psychosis/agitation, Starting on Tue04/25/23 at 1652, Until Tue04/29/23 at 0931 Or Haloperidol Lactate (Haldol) 5 MG/ML inj 10 mg (CANCELED) 10 mg, Intramuscular, Q6H PRN Other, Psychosis/agitation, unable to take PO, Starting on Tue04/25/23 at 1652, Until Tue04/29/23 at 0931 Group 3: OLANZapine (zyPREXA) tab 5 mgJump to med 5 mg, Oral, Q6H PRN Agitation, Hallucinations, May give IM if resuing PO. Total dosage to not exceed 30 mg daily, Starting on Tue04/29/23 at 0931, Until Tue04/29/23 at 1625 Or OLANZapine (zyPREXA IM) inj 10 mgJump to med 10 mg, Intramuscular, Q8H PRN For agitation/hallucinations. May give IM if unable to give PO. Total dosage to not exceed 30 mg daily, Starting on Tue04/29/23 at 0931, Until Tue04/29/23 at 1625, Upon reconstitution with 2.1 mL of Sterile Water for Injection, each mL will contain 5 mg of olanzapine. Expires 1 hour after mixing. documented in this encounter Additional Health Concerns Infection Onset Date Last Indicated Resolved Time Respiratory Rule-Out 04/24/2023 04/24/2023 023 8:25 PM EST COVID-19 Rule-Out 04/24/2023 04/24/2023 04/24/2023 8:25 PM EST documented as of this encounter Advance Directives Latest Code Status on File Code Status Date Activated Date Inactivated Comments Full Code 04/24/2023 8:53 PM 04/29/2023 4:25 PM Thi s order reflects the patients wishes and were consensually agreed upon. Question Answer Comments Discussion of Advance Directives occurred with: Not Discussed due to patient's condition Does the patient have a Living Will? No Does the patient have Health Care Power of Assembly Line Driver? No
--- OUTSIDE RECORDS SUMMARY | 2023-04-30 19:18 | External Medical Summary ---
Author Name Unknown Address Unknown Organization K1F:LABORATORY [facility] - [address] [id number] Laboratory Report Ordering Provider Test Date Status KAMILLA MATHIAS 04/24/2023 19:33:49 Final ADMITTED patient Observation Date Value Abnormality Reference (Units ) Status Adenovirus DNA [Presence] in Nasopharynx by JORDANA with non-probe detection 04/24/2023 19:33:49 Negative Negative Final Human coronavirus 229E RNA [Presence] in Nasopharynx by JORDANA with non-probe detection 04/24/2023 19:33:49 Negative Negative Final Human coronavirus HKU1 RNA [Presence] in Nasopharynx by JORDANA with non-probe detection 04/24/2023 19:33:49 Negative Negative Final Human coronavirus NL63 RNA [Presence] in Nasopharynx by JORDANA with non-probe detection 04/24/2023 19:33:49 Negative Negative Final Human coronavirus OC43 RNA [Presence] in Nasopharynx by JORDANA with non-probe detection 04/24/2023 19:33:49 Negative Negative Final SARS-CoV-2 (COVID-19) RNA [Presence] in Nasopharynx by JORDANA with non-probe detection 04/24/2023 19:33:49 Negative Negative Final Human metapneumovirus RNA [Presence] in Nasopharynx by JORDANA with non-probe detection 04/24/2023 19:33:49 Negative Negative Final Rhinovirus+Enterovirus RNA [Presence] in Nasopharynx by JORDANA with non-probe detection 04/24/2023 19:33:49 Negative Negative Final Influenza virus A RNA [Presence] in Nasopharynx by JORDANA with non-probe detection 04/24/2023 19:33:49 Negative Negative Final Influenza virus B RNA [Presence] in Nasopharynx by JORDANA with non-probe detection 04/24/2023 19:33:49 Negative Negative Final Parainfluenza virus 1 RNA [Presence] in Nasopharynx by JORDANA with non-probe detection 04/24/2023 19:33:49 Negative Negative Final Parainfluenza virus 2 RNA [Presence] in Nasopharynx by JORDANA with non-probe detection 04/24/2023 19:33:49 Negative Negative Final Parainfluenza virus 3 RNA [Presence] in Nasopharynx by JORDANA with non-probe detection 04/24/2023 19:33:49 Negative Negative Final Parainfluenza virus 4 RNA [Presence] in Nasopharynx by JORDANA with non-probe detection 04/24/2023 19:33:49 Negative Negative Final Respiratory syncytial virus RNA [Presence] in Nasopharynx by JORDANA with non-probe detection 04/24/2023 19:33:49 Negative Negative Final Bordetella pertussis.pertussis toxin promoter region [Presence] in Nasopharynx by JORDANA with non-probe detection 04/24/2023 19:33:49 Negative Negative Final Chlamydophila pneumoniae DNA [Presence] in Nasopharynx by JORDANA with non-probe detection 04/24/2023 19:33:49 Negative Negative Final Mycoplasma pneumoniae DNA [Presence] in Nasopharynx by JORDANA with non-probe detection 04/24/2023 19:33:49 Negative Negative Final Bordetella parapertussis [id number] DNA [Presence] in Nasopharynx by JORDANA with non-probe detection 04/24/2023 19:33:49 Negative Negative Final
The primers that detect Rhinovirus may cross react with some Enterorviruses. The validation of bronchial specimens, tracheal aspirates, and throats for this assay was developed and performance characteristics determined by [employer]. The validation of alternate specimen types has not been cleared or approved by the U.S. Food and Drug Administration (FDA). It has been determined that such clearance or approval is not necessary. [facility] - [address] [facility] [id number]
--- OUTSIDE RECORDS SUMMARY | 2023-04-30 19:18 | External Medical Summary ---
Author Name Unknown Address Unknown Organization K1F:LABORATORY [facility] - [address] [place] [id number] Laboratory Report Ordering Provider Test Date Status KAMILLA MATHIAS 04/24/2023 19:44:05 Final Cutoff Concentrations:
Drug Level
Amphetamines 500 ng/mL
Benzodiazepines 100 ng/mL
Cannabinoids 50 ng/mL
Cocaine Metabolite 150 ng/mL
Fentanyl 1 ng/mL
Hydrocodone / Hydromorphone 300 ng/mL
Methadone Metabolite 100 ng/mL
Morphine / Codeine 300 ng/mL
Oxycodone / Oxymorphone 100 ng/mL

Screening results are presumptive and can only be used for medical purposes. Confirmatory testing is available upon request. Observation Date Value Abnormality Reference (Units ) Status Amphetamines, Urine screen 04/24/2023 19:44:05 Negative Negative Final Benzodiazepines, Urine screen 04/24/2023 19:44:05 Negative Negative Final Cannabinoids, Urine screen 04/24/2023 19:44:05 Positive Abnormal Negative Final Cocaine Metabolite, Urine screen 04/24/2023 19:44:05 Negative Negative Final fentaNYL [Presence] in Urine by Screen method 04/24/2023 19:44:05 Negative Negative Final HYDROcodone [Presence] in Urine by Screen method 04/24/2023 19:44:05 Negative Negative Final 2-Qievklmfxj-8,5-Dimeth yl-3,3-Diphenylpyrrolid ine (EDDP) [Presence] in Urine 04/24/2023 19:44:05 Negative Negative Final Opiates, Urine screen 04/24/2023 19:44:05 Negative Negative Final oxyCODONE [Presence] in Urine by Screen method 04/24/2023 19:44:05 Negative Negative Final Performing Location LABORATORY [facility] - [address] [place] [id number]
--- OUTSIDE RECORDS SUMMARY | 2023-04-30 19:18 | External Medical Summary ---
Author Name Unknown Address Unknown Organization K1F:LABORATORY [facility] - [address] [facility] [place] [id number] Laboratory Report Ordering Provider Test Date Status KAMILLA MATHIAS 04/24/2023 19:35:00 Final Observation Date Value Abnormality Reference (Units ) Status SYNC LEUKOCYTES IN BLOOD BY AUTOMATED COUNT 04/24/2023 19:35:00 10.68 4.00-10.80 (K/uL) Final Segs 04/24/2023 19:35:00 66.8 40.0-75.0 (%) Final Lymphs % 04/24/2023 19:35:00 23.0 18.0-42.0 (%) Final Monos 04/24/2023 19:35:00 7.1 1.0-11.0 (%) Final Eosinophils 04/24/2023 19:35:00 2.3 0.0-6.0 (%) Final Basos 04/24/2023 19:35:00 0.5 0.0-2.0 (%) Final Immature Granulocyte, Percent 04/24/2023 19:35:00 0.3 0.0-2.0 (%) Final Absolute Segs 04/24/2023 19:35:00 7.13 1.80-7.70 (K/uL) Final Lymphs, absolute 04/24/2023 19:35:00 2.46 1.00-4.80 (K/ul) Final Monos, Abs 04/24/2023 19:35:00 0.76 0.00-1.10 (K/uL) Final Eos, Abs 04/24/2023 19:35:00 0.25 0.00-0.70 (K/uL) Final Basos, Abs 04/24/2023 19:35:00 0.05 0.00-0.20 (K/uL) Final Immature Granulocytes, Number 04/24/2023 19:35:00 0.03 0.00-0.20 (K/uL) Final Performing Location LABORATORY [facility] - [address] [place] [address]
--- OUTSIDE RECORDS SUMMARY | 2023-04-30 19:18 | External Medical Summary ---
Author Name Unknown Address Unknown Organization K1F:[facility]ORY [facility] [address] [facility] [place] [id number] Laboratory Report Ordering Provider Test Date Status KAMILLA MATHIAS 04/24/2023 19:35:00 Final Observation Date Value Abnormality Reference (Units ) Status BUN 04/24/2023 19:35:00 19 6-20 (mg/dL) Final Creatinine 04/24/2023 19:35:00 0.9 0.6-1.2 (mg/dL) Final Glomerular filtration rate/1.73 sq M.predicted [Volume Rate/Area] in Serum, Plasma or Blood by Creatinine-based formula (CKD-EPI) 04/24/2023 19:35:00 >90 >=60 (mL/min) Final eGFR is calculated based on the CKD-EPI 2020 equation SODIUM 04/24/2023 19:35:00 137 135-146 (m mol/L) Final Potassium 04/24/2023 19:35:00 4.4 3.5-5.1 (m mol/L) Final Cl 04/24/2023 19:35:00 101 98-107 (mm ol/L) Final CO2 04/24/2023 19:35:00 27 22-32 (mmo l/L) Final Anion gap 04/24/2023 19:35:00 9 7-15 (mmol /L) Final Glucose 04/24/2023 19:35:00 105 70-120 (mg /dL) Final Albumin 04/24/2023 19:35:00 4.4 3.8-5.0 (g /dL) Final AST (Aspartate aminotransferase) 04/24/2023 19:35:00 41 10-50 (U/L) Fin al Alk Phos 04/24/2023 19:35:00 83 35-130 (U/ L) Final Bilirubin, Total 04/24/2023 19:35:00 0.2 <=1 .2 (mg/dL) Final Calcium 04/24/2023 19:35:00 9.1 8.4-10.2 ( mg/dL) Final Protein 04/24/2023 19:35:00 7.3 6.0-8.3 (g /dL) Final ALT (Alanine aminotransferase) 04/24/2023 19:35:00 70 Above high normal 10-50 (U/L) Final Performing Location LABORATORY [facility] - [facility] [address] [place] [id number]
--- OUTSIDE RECORDS SUMMARY | 2023-04-30 19:18 | External Medical Summary ---
Author Name Unknown Address Unknown Organization K1F:LABORATORY [facility] - [address] [place] [id number] Laboratory Report Ordering Provider Test Date Status KAMILLA MATHIAS 04/24/2023 19:35:00 Final Observation Date Value Abnormality Reference (Units ) Status WBC, Total 04/24/2023 19:35:00 10.68 4.00-10.80 (K/uL) Final RBC 04/24/2023 19:35:00 4.72 4.50-5.25 (M/uL) Final Hemoglobin 04/24/2023 19:35:00 14.8 14.0-16.8 (g/dL) Final HCT 04/24/2023 19:35:00 42.0 40.0-48.4 (%) Final MCV 04/24/2023 19:35:00 89.0 82.0-99.5 (fL) Final MCH 04/24/2023 19:35:00 31.4 27.0-34.0 (pg) Final MCHC 04/24/2023 19:35:00 35.2 32.0-36.0 (g/dL) Final RDW 04/24/2023 19:35:00 13.8 11.5-15.5 (%) Final Platelets 04/24/2023 19:35:00 261 140-400 (K/uL) Final MPV 04/24/2023 19:35:00 9.3 6.6-11.1 (fL) Final Nucleated erythrocytes/100 leukocytes [Ratio] in Blood by Automated count 04/24/2023 19:35:00 0 <=0 (/100 WBCs) Final Performing Location LABORATORY [facility] - [address] [place] [id number]
--- OUTSIDE RECORDS SUMMARY | 2023-04-30 19:18 | External Medical Summary ---
Author Name Unknown Address Unknown Organization K01:[place] [facility] [place] [address] [facility] [place] [address] Laboratory Report Ordering Provider Test Date Status JELENAJARETT JR 04/24/2023 19:35:00 Final Observation Date Value Abnormality Reference (Units ) Status Triglyceride 04/24/2023 19:35:00 84 <=174 ( mg/dL) Final Triglyceride Reference Range s (mg/dL):
<150 Acceptable
150-174 Borderline high
175-499 High
>=500 Very high Cholesterol 04/24/2023 19:35:00 189 <200 (mg /dL) Final Total Cholesterol Reference Ranges (mg/dL):
<200 Desirable
200-239 Borderline high
>=240 High HDL 04/24/2023 19:35:00 62 >39 (mg/dL ) Final HDL Cholesterol Reference Ra nges (mg/dL):
>=60 High (Desirable)
<50 Low (Undesirable) For Females
<40 Low (Undesirable) For Males NON-HDL CHOLESTEROL 04/24/2023 19:35:00 127 <=159 (mg/dL) Final Non-HDL Cholesterol Referenc e Range (mg/dL):
<100 Target level for high risk ASCVD patient
<130 Optimal for general population
130-159 Near optimal for general population
160-189 Borderline High
190-219 High
>=220 Very High LDL, (calculated) 04/24/2023 19:35:00 110 <= 129 (mg/dL) Final LDL Cholesterol Reference Ra nges (mg/dL):
<70 Target level for high risk ASCVD patient
<100 Optimal for general population
100-129 Near optimal for general population
130-159 Borderline high
160-189 High
>=190 Very high Performing Location [place] [facility] [place] [address] [facility] [id number]
--- OUTSIDE RECORDS SUMMARY | 2023-04-30 19:18 | External Medical Summary ---
Author Name Unknown Address Unknown Organization [id number]:[facility] [place] - [address] [facility] [id number] Laboratory Report Ordering Provider Test Date Status JARETT BOWLES JR 04/24/2023 19:35:00 Final Observation Date Value Abnormality Reference (Units ) Status HbA1C 04/24/2023 19:35:00 5.9 Above high normal 4. 0-5.6 (%) Final The use of HbA1c to monitor glycemic status is based on normal hemoglobin and HbA composition. This test should not be used in patients with abnormal hemoglobin that affects the half life of the red blood cell or the in vivo glycation rates. Glucose, estimated average 04/24/2023 19:35:00 123 <126 (mg/dL) Final Performing Location [facility] [place] - [address] [facility] [id number]
--- NOTE | 2023-04-30 19:31 | Emergency Department Note ---
Impression & Plan Depression with suicidal ideation ED Provider Note NAME: TERE HAMMONDS AGE: 32 SEX: M : 1990 ARRIVES VIA: Ambulance INFORMANT: Patient, ED PROVIDER(S): Simeon Hilton MD CHIEF COMPLAINT: Mental wellness concern, suicidal ideation MEDICAL DECISION MAKING: Patient presented due to concern for mental wellness concerns associated suicidal ideation with plan to overdose on pills. Blood work was obtained patient was to medically cleared referrals were made. Patient was admitted to 3 S. Discussion w/ other healthcare providers: None Prior /Outside records reviewed: I reviewed a discharge summary from Dr. Ocasio from March 29, 2023. Patient at that time had presented due to concern for anxiety and vague suicidal thoughts without plan. Patient was discharged at this time. Differential diagnosis: Mood disorder, infection, hypoglycemia, electrolyte abnormalities, dehydration, medication side effect among others were considered. Diagnostics, as interpreted by me: ECG: None Medical decision rules: None Imaging studies: None HPI: Patient presents due to concern for mental wellness concern and reportedly has associated suicidal ideation with plan to overdose on medications. Patient denies any HI. Patient states that he feels like "trash." She also states that he is currently undomiciled. Patient reports that he does not have any current services. Patient is currently unemployed. Patient states that he is hearing voices but they are not any command hallucinations. Patient has been seeing things that are not there and may be able to read minds. Patient does have some associated anxiety. Patient does not have any access to guns or weapons. Patient does use marijuana. Patient's sleep and appetite have been "okay." PAST MEDICAL HISTORY: See Below PAST SURGICAL HISTORY: See Below SOCIAL HISTORY: See Below HOME MEDICATIONS: See Below ALLERGIES: See Below VITALS: See Below PHYSICAL EXAMINATION: GENERAL: NAD, non-toxic. EYE EXAM: Normal conjunctiva. PERRL, no anisocoria and EOM's grossly intact w/o pain. OROPHARYNX: Moist mucus membranes, grossly normal dentition. NECK: Supple, no nuchal rigidity, no adenopathy, non-tender. No signs of meningismus. FROM of the neck with good chin to chest and neck extension. No stridor. LUNGS: Clear to auscultation. Normal chest wall mechanics. HEART: NSR, no MRG. ABDOMEN: Abdomen soft, non-tender, no masses, no rebound or guarding. BACK: No CVA TTP. SKIN: No rashes and no bruising. UPPER EXTREMITIES: Upper extremities are grossly normal. LOWER EXTREMITIES: Grossly normal, no edema. NEURO EXAM: A&O x3, cranial nerves II-XII grossly intact, normal speech, moves all 4 extremities. Psych: Positive SI with plan denies HI or AVH. Past Med/Surg History Medical History Malingering Antisocial personality disorder Traits Alcohol use disorder ASHLI (generalized anxiety disorder) Mood disorder Odontalgia Right sided facial pain Psychotic disorder with delusions Anxiety Bipolar disorder Depression Surgical History No history of previous surgery Family History Denies family history of Ovarian cancer Prostate cancer Myocardial infarction Breast cancer Colorectal cancer Social History Smoking Status: Current every day smoker Tobacco Type: Cigarettes Hx Alcohol Use: Yes (rarely) Hx Substance Use: No Preferred Language: Estonian Communication Ability: Effective Visual Impairment: No Limitations Hearing Ability: Normal Campaign Associate Required: No Beliefs That Will Affect Care: None marital status: single Current Living Situation: Significant Other current occupational status: employed and unemployed Feels Safe at Home: No Dental Care, Regularly: Yes Physical Activity Frequency: Daily Seatbelt Use: sometimes Sunscreen Use: No Gender Identity: Male Assistive Devices: None Allergies Allergies Allergy/AdvReac Type Severity Reaction Status Date / Time No Known Allergies Allergy Verified 11/02/22 19:44 Home Meds Home Medications Medication Instructions Recorded Confirmed hydroxyzine HCl 50 mg tablet 50 mg PO Q8 Anxiety 04/10/23 04/30/23 Results & Data (ED) Vital Signs Vital Signs - 24 hr 04/30/23 19:21 Temperature 36.4 C L Temperature Source Oral Pulse Rate 117 H Respiratory Rate 22 Blood Pressure 115/71 Blood Pressure Mean 85 Pulse Oximetry 95 Oxygen Delivery Method Room Air Sepsis Recent Fever Within 48 Hours No Sepsis New/Unexplained Change in Mental Status No Sepsis Action Taken by Nursing No Action Required Home Medications Current Medication List: was personally reviewed by me Laboratory Data Attestation: I reviewed the patient's lab results. 04/30/23 19:38 04/30/23 19:38 Lab Results 04/30/23 04/30/23 Range/Units 19:38 20:24 WBC 13.48 H (4.8-10.8) K/ul RBC 5.26 (4.70-6.10) M/uL Hgb 16.0 (14.0-18.0) g/dl Hct 44.4 (42.0-52.0) % MCV 84.4 (80.0-100.0) fL MCH 30.4 (25.0-34.0) pg MCHC 36.0 (32.0-36.0) g/dL RDW Std Deviation 41.2 (36.4-46.3) fL RDW Coeff of Dalila 13.4 (11.5-14.5) % Plt Count 353 (130-400) K/uL MPV 9.7 (9.4-12.4) fL Immature Gran % (Auto) 0.4 % Neut % (Auto) 74.4 % Lymph % (Auto) 16.5 % [place] % (Auto) 8.2 % Eos % (Auto) 0.1 % Baso % (Auto) 0.4 % Neut # (Auto) 10.01 H (1.40-6.50) K/uL Lymph # (Auto) 2.23 (1.20-3.40) K/uL [place] # (Auto) 1.10 H (0.11-0.59) K/uL Eos # (Auto) 0.02 (0.00-0.50) K/uL Baso # (Auto) 0.06 (0.00-0.20) K/uL Immature Gran # (Auto) 0.06 (0.01-0.20) K/uL Sodium 137 (136-145) mmol/L Potassium 3.9 (3.5-5.1) mmol/L Chloride 100 (98-107) mmol/L Carbon Dioxide 28 (21-32) mmol/L Anion Gap 9 (3-11) BUN 17 (6-23) mg/dl Creatinine 1.02 (0.6-1.4) mg/dl Est Cr Clr Drug Dosing 88.7 ml/min Est GFR ( Amer) 113.8 ml/min Est GFR (Non-Af Amer) 98.2 ml/min BUN/Creatinine Ratio 16.7 (10-20) Glucose 116 H (70-99(Fasting)) mg/dl Calcium 10.2 (8.6-10.3) mg/dl Total Bilirubin 0.6 (0.2-1.0) mg/dl AST 29 (13-39) U/L ALT 39 (7-52) U/L Alkaline Phosphatase 83 (34-104) U/L Total Protein 8.3 (6.0-8.3) gm/dl Albumin 5.0 (3.4-5.0) gm/dl Globulin 3.3 (2.5-4.0) gm/dl Albumin/Globulin Ratio 1.5 (0.9-2) TSH 1.442 (0.300-4.500) uIu/ml Urine Color Dark Yellow Urine Appearance Cloudy A (Clear) Urine pH 5.5 (4.5-7.5) Ur Specific [place] 1.020 (1.000-1.030) Urine Protein Trace H (Negative) Urine Glucose (UA) Negative (Negative) Urine Ketones Trace H (Negative) Urine Blood Negative (Negative) Urine Nitrite Negative (Negative) Urine Bilirubin 1+ H (Negative) Urine Urobilinogen Negative (Negative) Ur Leukocyte Esterase Negative (Negative) Urine WBC (Auto) 1-5 (0-5) /hpf Urine RBC (Auto) 0-4 (0-4) /hpf U Hyaline Cast (Auto) 10-30 H (0-5) /lpf U Epithel Cells (Auto) 10-20 H (0-5) /lpf Urine Bacteria (Auto) Negative (Negative) Salicylates < 3.0 L (3.0-30) mg/dl Urine Opiates Screen Neg (Neg) Ur Methadone, Qual Neg (Neg) Acetaminophen < 3 L (10-30) ug/ml Urine Barbiturates Neg (Neg) Ur Phencyclidine (PCP) Neg (Neg) U Amphetamin/Meth Scrn Neg (Neg) MDMA (Ecstasy) Screen Neg (Neg) U Benzodiazepines Scrn Neg (Neg) Ur Cocaine Metabolite Neg (Neg) U Marijuana (THC) Screen Pos H (Neg) Ethyl Alcohol mg/dL < 10.0 (<10.0) mg/dl SARS-CoV-2, RNA, NAAT NEGATIVE (NEGATIVE) Discharge Plan Visit Data Chief Complaint: Mental Health Evaluation Stated Complaint: SUICIDAL IDEATION/MHI ED Provider: Simeon Hilton Discharge Problem: Depression with suicidal ideation Patient Disposition: Admitted As Inpatient Discharge Instructions Interventions: ED Discharge Assessment Last Done: 04/30/23 23:06
[2023-04-30 20:25] LABS: Bilirubin,Total 0.6 mg/dl (0.2-1.0); Calcium 10.2 mg/dl (8.6-10.3); Potassium 3.9 mmol/L (3.5-5.1)
[2023-04-30 20:30] LABS: Acetaminophen < 3 ug/ml (10-30); Salicylate < 3.0 mg/dl (3.0-30)
[2023-04-30 20:31] LABS: Albumin Globulin Ratio 1.5 (0.9-2); BUN Creatinine Ratio 16.7 (10-20); Creatinine Clr Calc Pharmacy 88.7 ml/min; Est GFR (African American) 113.8 ml/min; Est GFR (Non-African American) 98.2 ml/min; Globulin 3.3 gm/dl (2.5-4.0); Total Protein 8.3 gm/dl (6.0-8.3)
[2023-04-30 20:34] LABS: Appearance Urine Cloudy (Clear); Bacteria Urine Automated Negative (Negative); Blood Urine Negative (Negative); Color Urine Dark Yellow; Glucose Urine UA Negative (Negative); Ketones Urine Trace (Negative); Leukocyte Esterase Urine Negative (Negative); Nitrite Urine Negative (Negative); Protein Urine Trace (Negative); RBC Urine Automated 0-4 /hpf (0-4); Urobilinogen Urine Negative (Negative); pH Urine 5.5 (4.5-7.5)
[2023-04-30 20:37] LABS: Bilirubin Urine 1+ (Negative)
[2023-04-30 20:44] LABS: Thyroid Stimulating Hormone 1.442 uIu/ml (0.300-4.500)
[2023-04-30 21:02] LABS: Hematocrit (blood only) 44.4 % (42.0-52.0); Mean Corpuscular Hemoglobin 30.4 pg (25.0-34.0); Mean Corpuscular Volume 84.4 fL (80.0-100.0); Mean Platelet Volume 9.7 fL (9.4-12.4); Platelet Count 353 K/uL (130-400); RDW Coefficient of Variation 13.4 % (11.5-14.5); RDW Standard Deviation 41.2 fL (36.4-46.3); Red Blood Count 5.26 M/uL (4.70-6.10); White Blood Count 13.48 K/ul (4.8-10.8)
[2023-04-30 21:09] LABS: Basophils # (auto) 0.06 K/uL (0.00-0.20); Basophils % (auto) 0.4 %; Eosinophils # (auto) 0.02 K/uL (0.00-0.50); Eosinophils % (auto) 0.1 %; Immature Granulocytes # (auto) 0.06 K/uL (0.01-0.20); Immature Granulocytes % (auto) 0.4 %; Lymphocytes # (auto) 2.23 K/uL (1.20-3.40); Lymphocytes % (auto) 16.5 %; Monocytes % (auto) 8.2 %; Neutrophils # (auto) 10.01 K/uL (1.40-6.50); Neutrophils % (auto) 74.4 %
[2023-04-30 21:20] LABS: Amphetamines+Metham, Urine Neg (Neg); Barbiturates, Urine Neg (Neg); Benzodiazepine, Urine Neg (Neg); Cocaine, Urine Neg (Neg); MDMA (Ecstacy), Urine Neg (Neg); Marijuana, Urine Pos (Neg); Methadone, Urine Neg (Neg); Opiate, Urine Neg (Neg); Phencyclidine, Urine Neg (Neg)
[2023-04-30] MEDS ORDERED: MAGNESIUM HYDROXIDE SUSP 30 ML UDC PO PRN (22:43)
[2023-04-30] MEDS ORDERED: ALUMINUM/MAGNESIUM SUSP 30 ML UDC PO PRN (22:43)
[2023-04-30] MEDS ORDERED: ACETAMINOPHEN 325 MG TAB PO PRN (23:29)
[2023-04-30] MEDS ORDERED: BISMUTH SUBSALICYLATE LIQD 236 ML PO PRN (23:29)
[2023-04-30] MEDS ORDERED: SODIUM CHLORIDE 0.65% NA SOLN 45 ML (OCEAN) PRN (23:29)
[2023-04-30] MEDS ORDERED: hydrOXYzine HCl 25 MG TAB PO PRN (23:29)
[2023-05-01] MEDS: hydrOXYzine HCl 25 MG TAB PO PRN ×3 (09:18→19:11)
--- NOTE | 2023-05-01 14:57 | History & Physical ---
Date of Service May 01, 2023 Impression / Recommendations Impression My overall impression is that the this is a case of malingering for skilled nursing. However, we will continue to observe the patient over the next 16 to 24 hours. The patient's has not spontaneously taken "flight into health" in the past when, for example, he discovered that he would be family billed for the cost of the hospitalization. There is a decided "as if" quality to the patient's reports of suicidal thoughts and auditory hallucinations. These claims do not stand up to scrutiny. Initially, he told the emergency room that his plan was to overdose on hydroxyzine, he suggested to me that he no longer has a supply of hydroxyzine and, instead, has been thinking of "overdosing on "methamphetamine." However, when I informed him that overdosing on methamphetamine could lead to brain damage, he quickly told me that he would not want to risk brain damage. He has been refusing to cooperate with teen matters such as releases of information. His primary focus during his admission assessment today is the fact that he does not have a place to live, and is on the waiting list for a community skilled nursing for the [facility]. His discharge diagnosis from the behavioral health unit at [facility] last month was malingering. Furthermore, the record indicates that he has tried a number of times to get himself admitted for nonpsychiatric complaints. He variously denies hallucinations and then reports them. Today, he claims that his suicidal thoughts have to do with a "experiment" that he wants to engage in, whereby he will see if he will come back to live after a suicide. When I told him that that would not be an experiment, because we know perfectly well that never an history has there been a contemporaneous documented case of anyone coming back from the bed, he declared the thought to be "weird." His affect on the unit has not been depressed, nor has not been particularly anxious. He will periodically ask for Victanyl and complained of being anxious, but his affect is not anxious, nor is it depressed. On the other hand, I would like to observe him for at least 24 hours before making a decision to discharge him. (1) Depression with suicidal ideation: 05/01/23:The patient has been admitted to the behavioral health unit and has been placed on moderate high suicide precautions with every 15 minute checks. As noted, the patient has carried a diagnosis of malingering, and at present we believe that this is the most likely primary diagnosis. (2) Malingerin05/01/23:Patient was discharged last month from the behavioral health unit at [facility] with a diagnosis of malingering. This is based in part on the fact that the patient has been seeking skilled nursing for some time now, and is currently unhoused. He also has acknowledged a history of chemical substance misuse, including marijuana, methamphetamine, and alcohol. He is currently unemployed, and notes that he is unable to provide any of the chemical substances that he desires. Patient's report concerning the specifics of his suicidal ideation have shifted. His answers to questions about his claims of auditory hallucinations are vague. The patient's affect is not at all consistent with the patient's reported mood. When reminded that previous providers have also believe that the patient is malingering, he acknowledges that he was seen laughing, while claiming to be depressed, "so everyone thinks I am faking." He is not cooperating with treatment so far, and that he has refused to sign releases of information to allow us to gather additional information. Plan 05/01/23: Patient offers complaints of depression and anxiety. As above, these appear to be disingenuous, and are occurring within the context of the fact that the patient is homeless, a regular user of chemical substances such as marijuana, alcohol, and methamphetamine, but is currently not working (nor is he applying for work) and is unable to obtain a regular supply of identified chemical substances. Inventory Assets Strengths: Young, healthy, high school graduate, reports no history of gainful employment is primarily in food and nutrition teacher, but also in manufacturing). Needs: Housing. Discontinuation of the misuse of mood altering chemical substances. Evaluation for suicidal threats. Suicide Risk Level Suicide Risk Level: High-Moderate (q15 min suicide checks) Suicide Risk Level Comments: 05/01/23: As above, it is my strong suspicion that the patient is malingering terms of his reports of suicidal ideation, with secondary gain being psychiatric hospitalization en lieu of being homeless. However, we will continue to observe the patient for at least the next 16 to 24 hours on suicide on every 15 minute checks as a precaution. Risk Factors Assessment Male: Yes : Yes (()) Do You Have Access To A Gun?: No Health Problems: No Mental Health Diagnoses: Yes ((However, there is doubt as to the legitimacy of these diagnoses.)) Substance Use Disorders: Yes Previous Attempt: No Family History of Suicide: No ((The patient says that he is not sure of this response)) Previous Psychiatric Hospitalization: Yes Hopelessness: No Protective Factors Assessment Sikhism Beliefs: Yes Responsible for Young Children: No (The patient reports that he has 3 children, but has little or no contact) Employed: No Stable Relationships: No Supportive Family: No Good Rapport with Provider: No Absence of Any Risk Factors Above: No Psychiatric History Identifying Data TERE FLOREZ is a 32-year-old M who currently lives in alone. He has a history of a number of psychiatric hospitalizations, and was most recently discharged from [facility] with a diagnosis of malingering. The record indicates that he does not follow through on any aftercare plans, does not Secura or take discharge medications, generally does not cooperate with treatment while in the hospital (for example, he has been refusing to sign releases of information), and his reported symptoms have tended to be vague and shifting. He was admitted admitted to the locked behavioral health unit at [facility] and placed on suicide precautions with every 15 minute checks on 04/30/23 22:43 on a 201 voluntary commitment. Chief Complaint "I was suicidal and shit." History of Present Illness Mr. Tere Florez is a 32-year-old man who was admitted to the inpatient psychiatric service at [facility] through the emergency department last evening. The patient's report is that he is currently homeless, and although he is on the waiting list for a bed at the skilled nursing through [facility] a community skilled nursing program here in [place], he has not yet found his way to the top of the waiting list and, essentially, has been sleeping on the streets or in the [place]. He explains that he was sitting on a park bench here in [place] when he saw security police officer. He flagged the security police officer down and informed the security police officer that he was suicidal. The security police officer called for an ambulance, and he was taken to the [facility] emergency department for further evaluation. In the emergency department, the patient said that he had a plan to overdose on hydroxyzine. As best I can tell, he had attempted to get himself admitted to [facility], and also was refused admission to [facility]. He has appeared in the emergency room a number of times, with expressed goal of getting himself admitted to the hospital, either for psychiatric complaints or somatic complaints. Complicating the situation is the fact that the patient has a long history of chemical dependency. Initially, he claimed that he does not use illicit chemical substances. However, he tested positive for marijuana, and now says that he has a medical marijuana card, but has run out of marijuana and cannot afford to pu rchase more. Later, during his admission assessment by the undersigned, the patient said that his suicidal thoughts consisted of his wanting to do "an experiment" to see if he overdosed on methamphetamine if he would "come back." After explained the patient that an overdose on drugs, including methamphetamine, could lead to brain damage, but not , the patient said that if that is the case he is not going to take something that can "fuck [him} up." He then adds that he really likes methamphetamine because although it "speeds [him] up," he ends up "feeling no pain while using methamphetamine." Perhaps almost as an afterthought, the patient also said that he had been "hearing voices". When I ask to identify the content of the voices, he hesitated, and then said "I am not sure." When asked if it was a man's voice or woman's voice he hears, he said "probably both." When I ask him if he recognizes the voices, he said, "I do not know who they are why they are where they come from." His report is that he is depressed and anxious. Within this context, he tells me that he wants either more Vistaril, or a "stronger" anxiolytic/hypnotic. 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 The patient also reports that he does not have a history of any manic symptoms upon specific questioning. Past Psychiatric History Previous Psych History: There is a history of multiple psychiatric hospitalizations, multiple trips to the emergency room, and multiple unsuccessful attempts to get himself admitted to the hospital. Current Psychiatric Diagnosis: Depression/Anxiety/Mood Disorder Outpatient Services: None. The patient acknowledges that he is never followed through on recommendations for outpatient treatment, and does not have medications to take on an outpatient basis. Previous Psych Admissions: The patient references several previous hospitalizations at [facility]. He also says that he has been at a number of psychiatric hospitals in the area, including the [facility]. Do You Have Access To A Gun?: No History of Previous Suicide Attempt: No Describe Attempts in the Past: The patient reports no history of suicide attempts. Past Medication Trials: The patient only references hydroxyzine. He tells me that he does not believe that he is ever been on any other psychiatric medication. However, his discharge summary from the behavioral health unit at [facility] November 2022 indicates that he was discharged on risperidone, but evidently he did not take it. He was aware that he been discharged on hydroxyzine 50 mg tablets both for anxiety during the day and for sleep. Past Head Trauma/Neuro History Patient reports no history of head trauma, seizures, or concussions. Allergies Allergy/AdvReac Type Severity Reaction Status Date / Time No Known Allergies Allergy Verified 11/02/22 19:44 Home Medications Medication Instructions Recorded Confirmed Type hydroxyzine HCl 50 mg tablet 50 mg PO Q8 Anxiety 04/10/23 04/30/23 History Family History Family History of: Doesn't Know Family Mental Health History Comment: Mr. Florez tells me that he never knew his father. He was raised by his single mother and 2 siblings, but does not have any information regarding his family health history. Alcohol History Hx of Alcohol Use Over the Past 12 Months: Yes (Reports occassional alcohol use; last used 1 month ago) AUDIT Total Score: 9 Much of what the patient reports regarding substance use is quite possibly specious. As noted above, the patient originally had claimed that he does not use any street drugs. Today, he tells me that he uses marijuana regularly, but after he lost his job he has not been able to afford it on any sort of regular basis and is currently out of marijuana. He also admits that he likes to use methamphetamine because it "speeds [him] up" and allows him to "feel no pain." Smoking Use Have You Smoked or Used Tobacco Products in the Last 30 Days: Yes tobacco type: cigarettes Smoking Status: Current every day smoker Smoking packs per day: 0.5 Substance History Hx of Prescription Med Misuse Over the Past 12 Months: No Hx of Over the Counter Med Misuse Over the Past 12 Months: No Hx of Inhalent Misuse Over the Past 12 Months: No Hx of Organic Substance Use Over the Past 12 Months: Yes (Reports Marjuana use; methamphetamine confirmed by patient.) Hx of Illegal Substances/Street Drug Use Over Past 12 Months: Yes (The patient acknowledges using methamphetamine, and indicates that thi) Problems as a Result of Past Substance Use: None Identified Problems as a Result of Past Substance Use Comments: admits history of "meth, speed and bath salts" indicates recently. Personal History Living Arrangements: Homeless Childhood: Patient tells me that he was born and raised in [place] by his single mother and together with 2 siblings. His mother now lives in [place], and he saw her most recently about 3 years ago. He has not kept track of his siblings. Highest Grade Completed: High School Graduate Employment Status: Unemployed Marital Status: Single Number Of Children: Tells me that his 3 children locally here in [facility]. Beliefs That Will Affect Care: Sikhism (Raised Restorationism. Considers himself to be a believer, although does not attend services.) Hx Legal Problems: Yes (simple assault charges, violation of parole, alcohol use charges) Hx Traumatic Life Events: No Psychological Trauma History Comment: The patient reports no trauma history, although being unhoused and may qualify for Patient History Medical History Malingering Antisocial personality disorder Traits Alcohol use disorder ASHLI (generalized anxiety disorder) Mood disorder Odontalgia Right sided facial pain Psychotic disorder with delusions Anxiety Bipolar disorder Depression Surgical History No history of previous surgery Family History Denies family history of Ovarian cancer Prostate cancer Myocardial infarction Breast cancer Colorectal cancer Social History Smoking Status: Current every day smoker Tobacco Type: Cigarettes Hx Alcohol Use: Yes (rarely) Hx Substance Use: No Preferred Language: South African Communication Ability: Effective Visual Impairment: No Limitations Hearing Ability: Normal Line Closer Required: No Beliefs That Will Affect Care: Sikhism (Raised Restorationism. Considers himself to be a believer, although does not attend services.) Sikhism Beliefs: Restorationism marital status: single Current Living Situation: Significant Other current occupational status: employed and unemployed Feels Safe at Home: No Dental Care, Regularly: Yes Physical Activity Frequency: Daily Seatbelt Use: sometimes Sunscreen Use: No Gender Identity: Male Assistive Devices: None Immunizations: Unknown Review of Systems Constitutional: Patient offers no complaints except as noted above Eyes: Patient offers no complaints of ophthalmologic problems Ear, Nose, Mouth, Throat: The patient offers no current complaints involving ear, nose, mouth and throat. Respiratory: There are no current complaints of respiratory difficulty. Cardiovascular: Additional Comments: There are no cardiovascular complaints reported on questioning today. Gastrointestinal: He indicates that he believes that he had had symptoms of pancreatitis in the past. The patient has presented to the emergency room with a number of fairly vague somatic complaints. Musculoskeletal: No current complaints. Integumentary: No current complaints. Neurologic: The patient reports no history of head injury, concussion, or seizures. Psychiatric: Within normal limits, except as noted above. Endocrine: The patient reports no history of diabetes, thyroid condition, or other endocrinologic illnesses. Allergy / Immunological: None Physical Exam Mental Examination: Appearance: Disheveled Eye Contact: Avoids Eye Contact Motor Behavior: Unremarkable and Slowed Speech: Tangential, Repetitive and Rambling Mood: Depressed (As reported by patient.) and Anxious (As reported by patient.) Affect: Calm, Dulled and Withdrawn Thought Process: Disorganized, Disoriented, Evasive, Flight of Ideas and Tangential Insight: Poor (Limited.) Judgement: Poor (Limited.) Psychiatric: Comprehensive examination. Oriented x 3. Patient also oriented to situation. Appropriately dressed and groomed. Limited eye contact. Motor Behavior: steady gait and station No abnormal involuntary movements. Speech: normal rate/rhythm/volume of speech The patient's speech is spontaneous, delivered at a normal rate, rhythm, and volume. Affect: + blunted affect Somewhat subdued. He does not appear depressed, nor does he appear anxious. Patient complains of being both depressed and anxious. Patient demonstrates goal-oriented tight associations. Patient claims to be "paranoid," but provides no evidence to support any systematized delusional believes. The patient reports suicidal thoughts, but the content of these thoughts has shifted over the past 12 or so hours. Patient reports no current thoughts of causing physical harm to the person or property of others. Patient reports that he is hearing voices, but these reports have varied with time and situation. He has difficulty identifying the content of the "voices "and it does not appear that the patient is responding to internal stimuli, based on observations on the unit. The patient's long-term, short-term, and immediate memory appears to be within normal limits. Average Limited. Fair, considering that we believe that the patient's purpose in seeking admission is most likely for secondary gain Vital Signs (Past 24 Hours): Last Vital Signs Temp 36.6 C 05/01/23 06:35 Pulse 80 05/01/23 06:36 Resp 16 05/01/23 06:35 BP 113/71 05/01/23 06:36 Pulse Ox 99 04/30/23 23:35 O2 Del Method Room Air 04/30/23 23:35 Physical Examination: The physical examination completed by Dr. Simeon Hilton has been reviewed by the undersigned, and is considered to constitute medical clearance to the [facility] Exam Statement: The physical examination completed by Dr. Simeon Hilton has been reviewed by the undersigned, and is considered to constitute medical clearance to the [facility]. Results & Data ([facility]) Laboratory Results Laboratory Results - last 24 hr 04/30/23 04/30/23 19:38 20:24 WBC 13.48 H RBC 5.26 Hgb 16.0 Hct 44.4 MCV 84.4 MCH 30.4 MCHC 36.0 RDW Std Deviation 41.2 RDW Coeff of Dalila 13.4 Plt Count 353 MPV 9.7 Immature Gran % (Auto) 0.4 Neut % (Auto) 74.4 Lymph % (Auto) 16.5 [place] % (Auto) 8.2 Eos % (Auto) 0.1 Baso % (Auto) 0.4 Neut # (Auto) 10.01 H Lymph # (Auto) 2.23 [place] # (Auto) 1.10 H Eos # (Auto) 0.02 Baso # (Auto) 0.06 Immature Gran # (Auto) 0.06 Sodium 137 Potassium 3.9 Chloride 100 Carbon Dioxide 28 Anion Gap 9 BUN 17 Creatinine 1.02 Est Cr Clr Drug Dosing 88.7 Est GFR ( Amer) 113.8 Est GFR (Non-Af Amer) 98.2 BUN/Creatinine Ratio 16.7 Glucose 116 H Calcium 10.2 Total Bilirubin 0.6 AST 29 ALT 39 Alkaline Phosphatase 83 Total Protein 8.3 Albumin 5.0 Globulin 3.3 Albumin/Globulin Ratio 1.5 TSH 1.442 Urine Color Dark Yellow Urine Appearance Cloudy A Urine pH 5.5 Ur Specific Radiant 1.020 Urine Protein Trace H Urine Glucose (UA) Negative Urine Ketones Trace H Urine Blood Negative Urine Nitrite Negative Urine Bilirubin 1+ H Urine Urobilinogen Negative Ur Leukocyte Esterase Negative Urine WBC (Auto) 1-5 Urine RBC (Auto) 0-4 U Hyaline Cast (Auto) 10-30 H U Epithel Cells (Auto) 10-20 H Urine Bacteria (Auto) Negative Salicylates < 3.0 L Urine Opiates Screen Neg Ur Methadone, Qual Neg Acetaminophen < 3 L Urine Barbiturates Neg Ur Phencyclidine (PCP) Neg U Amphetamin/Meth Scrn Neg MDMA (Ecstasy) Screen Neg U Benzodiazepines Scrn Neg Ur Cocaine Metabolite Neg U Marijuana (THC) Screen Pos H U Marijuana THC Carboxy Pending Drug Screen Comment Pending Ethyl Alcohol mg/dL < 10.0 SARS-CoV-2, RNA, NAAT NEGATIVE Current Inpatient Medications Current Inpatient Medications: Current Inpatient Medications Acetaminophen (Acetaminophen 325 Mg Tab) 650 mg PO Q4H PRN PRN Reason: Headache or Minor Fever Stop: 05/30/23 23:28 Al Hydrox/Mg Hydrox/Simethicone (Aluminum/Magnesium Susp 30 Ml Udc) 30 ml PO Q4H PRN PRN Reason: GI Upset Stop: 05/30/23 22:42 Bismuth Subsalicylate (Bismuth Subsalicylate Liqd 236 Ml) 15 ml PO PRN PRN PRN Reason: Loose Stool Stop: 05/30/23 23:28 Hydroxyzine HCl (Hydroxyzine Hcl 25 Mg Tab) 50 mg PO HSZ PRN PRN Reason: Insomnia Stop: 05/30/23 23:28 Hydroxyzine HCl (Hydroxyzine Hcl 25 Mg Tab) 25 mg PO Q4H PRN PRN Reason: Anxiety Stop: 05/30/23 23:28 Last Admin: 05/01/23 13:09 Dose: 25 mg Magnesium Hydroxide (Magnesium Hydroxide Susp 30 Ml Udc) 30 ml PO DAILY PRN PRN Reason: Constipation Stop: 05/30/23 22:42 Sodium Chloride (Sodium Chloride 0.65% Na Soln 45 Ml ([place])) 1 - 2 sprays NA PRN PRN PRN Reason: Nasal Dryness/Congestion Stop: 05/30/23 23:28
[2023-05-02] MEDS: hydrOXYzine HCl 25 MG TAB PO PRN (08:51)
[2023-05-02] MEDS ORDERED: DESTROY THIS MEDICATION ONE (09:20)
--- NOTE | 2023-05-02 10:39 | Discharge Summary ---
Date of Service May 02, 2023 History of Present Illness Mr. Darek Florez is a 32-year-old man who was admitted to the inpatient psychiatric service at [facility] through the emergency department last evening. The patient's report is that he is currently homeless, and although he is on the waiting list for a bed at the alf through "[facility] a community alf program here in [place], he has not yet found his way to the top of the waiting list and, essentially, has been sleeping on the streets or in the [place]. He explains that he was sitting on a park bench here in [place] when he saw policewoman. He flagged the policewoman down and informed the policewoman that he was suicidal. The policewoman called for an ambulance, and he was taken to the [facility] emergency department for further evaluation. In the emergency department, the patient said that he had a plan to overdose on hydroxyzine. As best I can tell, he had attempted to get himself admitted to [facility], and also was refused admission to [facility]. He has appeared in the emergency room a number of times, with expressed goal of getting himself admitted to the hospital, either for psychiatric complaints or somatic complaints. Complicating the situation is the fact that the patient has a long history of chemical dependency. Initially, he claimed that he does not use illicit chemical substances. However, he tested positive for marijuana, and now says that he has a medical marijuana card, but has run out of marijuana and cannot afford to purchase more. Later, during his admission assessment by the undersigned, the patient said that his suicidal thoughts consisted of his wanting to do "an experiment" to see if he overdosed on methamphetamine if he would "come back." After explained the patient that an overdose on drugs, including methamphetamine, could lead to brain damage, but not , the patient said that if that is the case he is not going to take something that can "fuck [him} up." He then adds that he really likes methamphetamine because although it "speeds [him] up," he ends up "feeling no pain while using methamphetamine." Perhaps almost as an afterthought, the patient also said that he had been "hearing voices". When I ask to identify the content of the voices, he hesitated, and then said "I am not sure." When asked if it was a man's voice or woman's voice he hears, he said "probably both." When I ask him if he recognizes the voices, he said, "I do not know who they are why they are where they come from." His report is that he is depressed and anxious. Within this context, he tells me that he wants either more Vistaril, or a "stronger" anxiolytic/hypnotic. 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 The patient also reports that he does not have a history of any manic symptoms upon specific questioning. Physical Exam Mental Examination Appearance: Unkempt Eye Contact: Avoids Eye Contact Motor Behavior: Unremarkable Speech: Normal Affect: Calm (Angry initially when told of discharge, followed by euthymic affect and appropriate smiles.) Thought Process: Intact Insight: Fair Judgement: Fair ("I guess I just have to deal with it.") Psychiatric Motor Behavior: steady gait and station Speech: normal rate/rhythm/volume of speech Affect: + blunted affect Vital Signs (Past 24 Hours) Last Vital Signs Temp 36.9 C 05/02/23 09:25 Pulse 75 05/02/23 09:25 Resp 16 05/02/23 09:25 BP 111/75 05/02/23 09:25 Pulse Ox 99 05/02/23 09:25 O2 Del Method Room Air 04/30/23 23:35 The physical examination completed by Dr. Simeon Hilton has been reviewed by the undersigned, and is considered to constitute medical clearance to the behavioral health unit Principal Diagnosis Malingering Psychiatric Data See daily stay summary. In short, safety was maintained and the patient was cooperative with care. Medication changes included hydroxyzine was discontinued. As was the case in the past, Mr. Florez refused to participate in any group activities. Instead, he spent most of his time watching television. Despite the patient's complaints of being "depressed" and despite his reports that he was "hearing voices" and despite his report that he "believes in ghosts," despite the fact that the patient claimed to be suicidal, treatment team's observations were that the patient the patient's affect never appeared depressed, and, instead, showed a fairly bright affect most of the time, although he would sometimes look sad when asked about his mood by staff, but otherwise there is no evidence that he was actually depressed. There is no evidence that he was ever responding to internal stimuli. He continues to report that he "believes ghosts," but he was able to verbalize acceptance when the treatment team told him that many people believing ghosts, and that is not a reason for psychiatric hospitalization. He was told that he was going to be discharged, his first response was to threaten suicide and said that after making a suicide attempt he was going to su the hospital. However, once the became clear to him that he was going to be discharged, and after was explained to him that the discharge was because we believe that he is malingering, the patient verbalized acceptance of the decision, who indicated that he is future oriented based on his request to be able to take with him after discharge number of the various articles of clothing that have been given to him use in the hospital, and a clear statement from the patient that he does feel "safe." After the initial expression of anger, the patient became pleasant and cooperative. He also thanked us for arranging for him to have a ride to [facility] [employer]. Mr. Florez told his that his plan was to continue to "work with" [facility] in order to secure more permanent housing. And, in addition, he wished us to Noemi Rosenberg. Day of Discharge Assessment Today the patient voices readiness for discharge. They note improvement in mood and deny thoughts to harm self or others. Thoughts remain organized and they are improved from admission. There is no evidence of psychosis. They agree to take mediations as prescribed and keep follow-up appointments. They are stable for discharge to outpatient level of care. Transition of Care Transition Of Care Record: was reviewed with the patient Advance Directives Advance Directives Information Provided: Yes Advance Directives: No Mental Health Advance Directive: No Advance Directives on File: No Living Will: No Power of Caramel Cutter Machine: No Advance Directives Reason:: Declines as Mental Health Visit. Suicide Risk Level Suicide Risk Level Comments: 05/02/23: Although the patient reflexively threatened suicide when being told that he was being discharged, once it became apparent to him that he was not being believed and that the treatment team currently believes that he is malingering, most likely for alf, he subsequently stopped threatening suicide, told his that he was, in fact "safe," and clearly demonstrated that he was future orientedfor example, as evidenced by the fact that he was clearly future oriented while packing his closed to leave. Specifically, the patient asked if he could keep several arteries of clothing that have been given to him during the hospitalization, such as a sweatshirt that he said that he could use, along with several other articles of clothing, such as a plastic drinking cup. Also, at discharge he advises that he plans to continue to work with "[facility]" and local program that provides alf for persons who are unhoused. He also told his that he wanted to be taken to [facility], in the [place] area, because he had resources there as well as other contacts. The only time he adopted a depressed affect was when being interviewed about depression, and even then the depressed affect appeared to be "as if" he were depressed, rather than genuinely depressed. At all other times, his affect was bright. We never saw any evidence while observing him closely during the stay of his responding to internal stimuli. 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 The patient was discharged today with a primary diagnosis of malingering. 05/01/23: As above, it is my strong suspicion that the patient is malingering terms of his reports of suicidal ideation, with secondary gain being psychiatric hospitalization en lieu of being homeless. However, we will continue to observe the patient for at least the next 16 to 24 hours on suicide on every 15 minute checks as a precaution. Risk Factors Assessment Male: Yes : Yes (()) Do You Have Access To A Gun?: No Health Problems: No Mental Health Diagnoses: Yes ((However, there is doubt as to the legitimacy of these diagnoses.)) Substance Use Disorders: Yes Previous Attempt: No Family History of Suicide: No ((The patient says that he is not sure of this response)) Previous Psychiatric Hospitalization: Yes Hopelessness: No Protective Factors Assessment Mandaen Beliefs: Yes : No Responsible for Young Children: No (The patient reports that he has 3 children, but has little or no contact) Employed: No Stable Relationships: No Supportive Family: No Good Rapport with Provider: No Absence of Any Risk Factors Above: No Total Time Total Time Spent: Greater Than 30 Minutes Discharge Data Lab Results 04/30/23 04/30/23 19:38 20:24 WBC 13.48 H RBC 5.26 Hgb 16.0 Hct 44.4 MCV 84.4 MCH 30.4 MCHC 36.0 RDW Std Deviation 41.2 RDW Coeff of Dalila 13.4 Plt Count 353 MPV 9.7 Immature Gran % (Auto) 0.4 Neut % (Auto) 74.4 Lymph % (Auto) 16.5 Lares % (Auto) 8.2 Eos % (Auto) 0.1 Baso % (Auto) 0.4 Neut # (Auto) 10.01 H Lymph # (Auto) 2.23 Lares # (Auto) 1.10 H Eos # (Auto) 0.02 Baso # (Auto) 0.06 Immature Gran # (Auto) 0.06 Sodium 137 Potassium 3.9 Chloride 100 Carbon Dioxide 28 Anion Gap 9 BUN 17 Creatinine 1.02 Est Cr Clr Drug Dosing 88.7 Est GFR ( Amer) 113.8 Est GFR (Non-Af Amer) 98.2 BUN/Creatinine Ratio 16.7 Glucose 116 H Calcium 10.2 Total Bilirubin 0.6 AST 29 ALT 39 Alkaline Phosphatase 83 Total Protein 8.3 Albumin 5.0 Globulin 3.3 Albumin/Globulin Ratio 1.5 TSH 1.442 Urine Color Dark Yellow Urine Appearance Cloudy A Urine pH 5.5 Ur Specific [place] 1.020 Urine Protein Trace H Urine Glucose (UA) Negative Urine Ketones Trace H Urine Blood Negative Urine Nitrite Negative Urine Bilirubin 1+ H Urine Urobilinogen Negative Ur Leukocyte Esterase Negative Urine WBC (Auto) 1-5 Urine RBC (Auto) 0-4 U Hyaline Cast (Auto) 10-30 H U Epithel Cells (Auto) 10-20 H Urine Bacteria (Auto) Negative Salicylates < 3.0 L Urine Opiates Screen Neg Ur Methadone, Qual Neg Acetaminophen < 3 L Urine Barbiturates Neg Ur Phencyclidine (PCP) Neg U Amphetamin/Meth Scrn Neg MDMA (Ecstasy) Screen Neg U Benzodiazepines Scrn Neg Ur Cocaine Metabolite Neg U Marijuana (THC) Screen Pos H Ethyl Alcohol mg/dL < 10.0 SARS-CoV-2, RNA, NAAT NEGATIVE Hospital Course (1) Depression with suicidal ideation: 05/02/23: As noted above, after observing the patient for more than 24 hours on our conclusion is that the patient is malingering. He does have the potential to act out in the future by making a suicide gesture, and the fact that he is unhoused and admits to a history of misusing drugs, including alcohol, methamphetamine, and marijuana does increase his risk. However, at this point the risk of self-harm would not be mitigated by continued hospitalization. Furthermore, psychiatric hospitalization (without any genuine indications) is not in Mr. Florez's best interest, given that hospitalizations seem to reinforce dependency, and prevents progress towards healthy individual coping strategies for an able-bodied young person. 05/01/23:The patient has been admitted to the behavioral health unit and has been placed on moderate high suicide precautions with every 15 minute checks. As noted, the patient has carried a diagnosis of malingering, and at present we believe that this is the most likely primary diagnosis. (2) Malingerin05/01/23:Patient was discharged last month from the behavioral health unit at [facility] with a diagnosis of malingering. This is based in part on the fact that the patient has been seeking alf for some time now, and is currently unhoused. He also has acknowledged a history of chemical substance misuse, including marijuana, methamphetamine, and alcohol. He is currently unemployed, and notes that he is unable to provide any of the chemical substances that he desires. Patient's report concerning the specifics of his suicidal ideation have shifted. His answers to questions about his claims of auditory hallucinations are vague. The patient's affect is not at all consistent with the patient's reported mood. When reminded that previous providers have also believe that the patient is malingering, he acknowledges that he was seen laughing, while claiming to be depressed, "so everyone thinks I am faking." He is not cooperating with treatment so far, and that he has refused to sign releases of information to allow us to gather additional information. Plan 05/02/23: After observing the patient please, as planned, we have concluded that, in fact, the patient is malingeringpresumably for alf. At discharge, the patient essentially acknowledged the same, once he realized that his complaints of psychopathology were not consistent with our observations. As had been the case during previous admissions, Mr. Florez refused to participate in treatment program, and, instead, spent most of his time watching television and relaxing. 05/01/23: Patient offers complaints of depression and anxiety. As above, these appear to be disingenuous, and are occurring within the context of the fact that the patient is homeless, a regular user of chemical substances such as marijuana, alcohol, and methamphetamine, but is currently not working (nor is he applying for work) and is unable to obtain a regular supply of identified chemical substances. 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 Pending Studies at Discharge: No Stand-Alone Forms: [employer], Smoking Cessation Medications and DC Order Prescriptions: Discontinued hydroxyzine HCl 50 mg tablet 50 mg PO Q8 Rx Instructions: take 1 tablet by mouth in the morning and 1 tablet at noon and 1 tablet before bedtime Discharge Orders: Discharge Order (Routine); Ordered 05/02/23 Ordered By: Kirby Hoskins Admission Data Admit Date/Time: 04/30/23 22:43 Attending Provider: Mariia Morrissey Admit Provider: Mariia Morrissey Primary Care Provider: PCP,NO Other Interventions: Discharge Summary Assessment (RN) Last Done: 05/02/23 09:25 Coding [place] [address] D/C day mgmt > 30 min Patient Type Established History Expanded Problem Focused Exam Expanded Problem Focused Medical Decision Making Moderate Complexity Diagnoses Depression with suicidal ideation F32.A; R45.851 Malingering Z76.5 Time Spent (min) 50
[2023-05-04 23:18] LABS: Marijuana Quant, GCMS Urine 1128 ng/mL (<5)
== END 2023-05-02 09:50 | disposition home or self-care (01) | DRG 881 ==
LOC: ED 19:13 → EDINP 22:43